=== PATIENT | female | born 1995 | race Caucasian/White ===

== ENCOUNTER 2020-07-19 11:52 | Emergency (ER) | payer OTHER, SELFPAY ==
[2020-07-19 12:03] VITALS: BP 113/80; PULSE 106; RESP 20; TEMP 36.1; O2SAT 96
--- NOTE | 2020-07-19 12:15 | W.ED.GENAD ---
Discharge Plan Disposition Patient Disposition: HOME Condition: Stable Discharge Details Clinical Impression: Bright red rectal bleeding Primary Care Provider: Unknown,Unknown ED Provider: Genesis Rod Home Meds and New Rx's Prescriptions: New hydrocortisone acetate 25 mg suppository 25 mg MS QHS 5 Days Qty: 12 RF: 0 hydrocortisone 1 % cream with perineal applicator 1 applic MS DAILY 5 Days Qty: 28.4 RF: 0 No Action fluoxetine [Prozac] 40 mg Capsule PO DAILY RF: 0 propranolol 10 mg Tablet PO TID PRN (Reason: Anxiety) RF: 0 bupropion HCl [Wellbutrin XL] 150 mg Tablet Extended Release 24 Hr PO QAM RF: 0 dexmethylphenidate [Focalin XR] 20 mg Capsule,Er Biphasic 50-50 PO DAILY RF: 0 levomefolate calcium [Deplin] 7.5 mg Tablet PO DAILY RF: 0 Discharge Instructions Instructions: Hemorrhoids (ED), Rectal Bleeding (ED) Additional Instructions: Follow up with primary care provider in 3-5 days. Return to ED sooner if any worsening or concerns. Increase oral fluids. Follow-up with general surgery in 1 to 2 weeks for a possible colonoscopy for further evaluation as needed for continued rectal bleeding. Please return to the ED for any worsening bleeding, dizziness lightheadedness, abdominal pain or nausea vomiting. Use which deloris Tucks pads, sits baths lukewarm baths water daily for 20 to 30 minutes, avoid constipation. Use prescriptions as directed no longer than 7 days. You are placed on a care management list to follow-up with primary care provider establish with primary care and follow-up with general surgery. Referrals: Loree Victoria MD [ [facility]] - Discharge Data Discharge Date/Time-TO BE ENTERED AT DEPARTURE: 07/19/20 13:27 Medical Decision Making 23-year-old female presents to the ER chief complaint of rectal bleeding which she reports has been ongoing for the last year. She states that over the last few days to a week it has worsened. She does describe bright red rectal bleeding with clots every time she goes to the bathroom. She denies any abdominal pain or nausea vomiting. At this time will order CBC, CMP, magnesium, PT, type and screen, 1 L normal saline. Differential diagnosis includes but not limited to hemorrhoids, perirectal abscess, ulcerative colitis, CBC shows stable hemoglobin hematocrit 11.9 and 38.4 CMP is largely within normal limits. 1310: Rectal exam performed patient, she did have some tenderness with exam, there was 2 small flesh colored hemorrhoids noted at approximately 6:00 no internal hemorrhoids palpated. Stool Hemoccult positive. Discussed options of care with patient regarding CT abdomen pelvis versus follow-up with general surgery for possible colonoscopy via outpatient. Due to patient absence of abdominal pain nausea vomiting this time I do feel outpatient follow-up is reasonable at this time. Will prescribe patient hydrocortisone suppositories and topical cream and placed on care management list for establishment of PCP and outpatient follow-up for general surgery. Discussed home care and follow-up with patient who verbalizes understanding. Will place patient on a care management list for establishment of PCP. HPI General Mode of arrival: ambulatory. Date/Time Provider Initiated Documentation: 07/19/20 12:03. Limitations to Documentation: no limitations. Information obtained by: patient. HPI Narrative: 23-year-old female presents to the ER chief complaint of rectal bleeding which she reports has been ongoing for the last year. She states that over the last few days to a week it has worsened. She does describe bright red rectal bleeding with clots every time she goes to the bathroom. She denies any constipation or hard stools denies any diarrhea. She denies any abdominal pain nausea vomiting. She denies any fever or chills. She does report painful bleeding. She denies taking any significant amount of Tylenol or ibuprofen denies alcohol use. She does endorse marijuana. Last normal menstrual period was approximately 4 weeks ago, she does have the ParaGard IUD for control. Related Data Home Medications Medication Instructions Recorded Confirmed bupropion HCl [Wellbutrin XL] mg PO QAM 07/19/20 dexmethylphenidate [Focalin XR] mg PO DAILY 07/19/20 fluoxetine [Prozac] mg PO DAILY 07/19/20 hydrocortisone 1 applic MS DAILY 5 Days #28.4 g 07/19/20 hydrocortisone acetate 25 mg MS QHS 5 Days #12 ea 07/19/20 levomefolate calcium [Deplin] mg PO DAILY 07/19/20 propranolol mg PO TID PRN 07/19/20 Previous Rx's Medication Instructions Recorded hydrocortisone 1 applic MS DAILY 5 Days #28.4 g 07/19/20 hydrocortisone acetate 25 mg MS QHS 5 Days #12 ea 07/19/20 Allergies Allergy/AdvReac Type Severity Reaction Status Date / Time hazelnut Allergy Itching Unverified 07/19/20 12:10 soy Allergy Itching Unverified 07/19/20 12:10 General Stated Complaint: GI Bleed RUBENS: 3 Review of Systems Narrative: Constitutional: Negative for weight loss, alert and oriented, well groomed, obese body habitus, appears comfortable. Reports increased fatigue recently. HEENT: Denies trauma, headaches, blurry vision, nasal discharge, sore throat, trouble swallowing. Chest: Denies chest pain, palpitations, irregular rhythm, hypertension. Respiratory: Denies Shortness of breath, cough, hemoptysis. GI: Denies abdominal pain, nausea, vomiting, diarrhea, constipation. Positive rectal bleeding pain worsening in the last week ongoing for approximately 1 year. : Denies dysuria, hematuria, flank pain. Neuro: Denies dizziness, blurry vision, weakness, syncope, headache or facial numbness. Hematologic: Denies easy bruising, intolerance to heat or cold, hair loss. [facility] Social History Smoking/Tobacco Use Status: Never Smoking risk assessment performed?: Yes Alcohol Intake: never Drug use: Daily Substance use type: marijuana Do you feel safe at home: Yes Do you feel safe in your relationship?: Yes Exam Narrative Exam Narrative: Constitutional: Alert and oriented x3. Appears stated age. Normal body habitus. Head: Normocephalic, no trauma. Eyes: Pupils PERRLA, Red reflex noted, EOM's intact. Eyelids symmetrical without lesions, discharge, or swelling. ENT: Bilateral TM's WNL, External ear normal to inspection, no mastoid TTP, swelling, or erythema, Nasal turbinates WNL, no nasal discharge. Normal dentition, Posterior pharynx WNL, no exudate. Chest: RRR, Normal S1, S2, distal pulses intact. Resp: Lungs clear to auscultation bilaterally, no wheezes, rales, or rhonchi. Abdomen: Soft, nondistended, nontender to palpation in all 4 quadrants. Rectal: Musculoskeletal: Normal gait, 5/5 strength to all four extremities. Skin: No suspicious rashes or lesions. Capillary refill less than 2 sec. Neurologic: Cranial nerves II-XII intact. Alert and oriented x 3. DTR's intact. Hematologic/Lymphatic: No ecchymosis, no lymphadenopathy. Course Vital Signs Vital signs: Vital Signs Temperature 36.1 C L 07/19/20 12:03 Pulse 106 H 07/19/20 12:03 Respiratory Rate 20 07/19/20 12:03 Blood Pressure 113/80 07/19/20 12:03 Pulse Oximetry 96 07/19/20 12:03 Temperature 36.1 C L 07/19/20 12:03 Temperature Source Skin 07/19/20 12:03 Pulse 106 H 07/19/20 12:03 Respiratory Rate 20 07/19/20 12:03 Respiratory Effort Non-Labored 07/19/20 12:10 Blood Pressure 113/80 07/19/20 12:03 Blood Pressure Position Sitting 07/19/20 12:03 Pulse Oximetry 96 07/19/20 12:03 Oxygen Delivery Method Room Air 07/19/20 12:03 Oxygen Flow Rate 0 07/19/20 12:03 Pain Level 5 07/19/20 12:03 Procedures Stool Hemoccult Procedural Steps Taken: stool placed in appropriate test area, developer placed on stool and control areas and controls appropriately positive and negative Hemoccult result: positive
[2020-07-19] MEDS: Normal Saline 1,000 ML 1000 ML IV (12:39)
[2020-07-19 12:44] LABS: Abs Immature Grans 0.07 10^3/uL (0.0-0.06); Absolute Basophil Count 0.05 10^3/uL (0.0-0.2); Absolute Eosinophil Count 0.66 10^3/uL (0.0-0.7); Absolute Monocyte Count 0.76 10^3/uL (0.1-0.8); Absolute Neutrophil Count 6.38 10^3/uL (1.2-6.7); Basophils % 0.4; Eosinophils % 5.7; HCT 38.4 % (36.0-46.0); HGB 11.9 g/dL (11.2-15.7); Immature Grans % 0.6; Lymphocytes % 31.3; MCH 24.9 pg (27.0-33.0); MCV 80.3 fL (80-95); MPV 10.3 fL (8.0-11.0); Monocytes % 6.6; Neutrophils % 55.4; Nucleated RBC 0 %; Platelet Count 360 10^3/uL (130-400); RBC 4.78 10^6/uL (3.93-5.22); RDW 14.9 % (11.7-14.6); RDW-SD 42.9 fL; WBC 11.52 10^3/uL (4.4-10.8)
[2020-07-19 12:46] LABS: Absolute Lymphocyte Count 3.61 10^3/uL (1.2-3.4)
[2020-07-19 12:50] LABS: ALT 49 U/L (14-59); AST 37 U/L (15-37); Albumin 3.8 g/dL (3.4-5.0); Alkaline Phosphatase 82 U/L (46-116); Anion Gap 13.1 mmol/L (3-11); BUN 8 mg/dL (7-18); Bilirubin, Total 0.3 mg/dL (0.2-1.0); CO2 24.9 mmol/L (21.0-32.0); CREATININE 0.9 mg/dL (0.55-1.02); Calcium 9.2 mg/dL (8.5-10.1); Chloride 102 mmol/L (98-107); Glucose 94 mg/dL (74-106); Potassium 4.3 mmol/L (3.5-5.1); Sodium 140 mmol/L (136-145); Total Protein 8.2 g/dL (6.4-8.2)
[2020-07-19 13:13] LABS: Prothrombin Time 9.9 sec (9.3-11.0)
--- NOTE | 2020-07-19 19:27 | NUR.NOTE ---
Referral [facility] for [facility] bleeding follow up in 1-2 weeks and copy to Care Management to establish pcp in 1-2 weeks for same issue.Nursing Note:
== END 2020-07-19 13:27 | disposition home or self-care (01) ==
PROVIDERS: Emergency Provider Registered Nurse Emergency
DX: K62.5 Hemorrhage of anus and rectum (principal)
CPT/HCPCS: 80053; 81025; 99283; 83735; 85025; 85610

== ENCOUNTER 2020-08-05 16:11 | Outpatient (CLI) | payer OTHER, SELFPAY ==
--- NOTE | 2020-08-05 16:00 | RT.EKG_ITS ---
APPROVED REPORT Exam: Resting ECG Reason for Exam: High BP/HR Patient Location: O HR:112 bpm ECG Measurements Heart Rate 112 AXIS MA 118 P 50 QRSd 79 QRS 14 QT 329 T 12 QTc 449 Conclusion Sinus tachycardia...rate> 99
== END 2020-08-05 16:12 | disposition home or self-care (01) ==
LOC: DI.CM 16:13
PROVIDERS: Visit Provider Nurse Practitioner Family
DX: R07.89 Other chest pain (principal)
CPT/HCPCS: 93010

== ENCOUNTER 2020-08-05 17:30 | Observation (INO) | payer OTHER, SELFPAY ==
[2020-08-05] VITALS (13 sets, daily range): BP systolic 104–156; BP diastolic 70–87; PULSE 88–131; RESP 16–22; TEMP 36.1–37.2; O2SAT 99–100
--- NOTE | 2020-08-05 17:34 | ED.GENADUL_ITS ---
Discharge Plan Discharge Details Chief Complaint: GI Bleed Primary Care Provider: Unknown,Unknown ED Provider: Carlos Manuel Elliott Home Meds and New Rx's Prescriptions: No Action eszopiclone [Lunesta] 1 mg tablet 1 mg PO QHS RF: 0 bisacodyl [Dulcolax (bisacodyl)] 5 mg tablet,delayed release (DR/EC) 5 mg PO ONCE Qty: 4 RF: 0 polyethylene glycol 3350 17 gram powder in packet 255 g PO DAILY Qty: 15 RF: 0 propranolol 10 mg Tablet 10 mg PO TID PRN (Reason: Anxiety) RF: 0 bupropion HCl [Wellbutrin XL] 150 mg tablet extended release 24 hr 300 mg PO QAM RF: 0 dexmethylphenidate [Focalin XR] 20 mg capsule,ER biphasic 50-50 10 mg PO DAILY RF: 0 fluoxetine [Prozac] 40 mg capsule 60 mg PO DAILY RF: 0 levomefolate calcium 7.5 mg tablet 15 mg PO DAILY RF: 0 Medical Decision Making 24-year-old female referred by [facility]. She was initially seen in the emergency department on July 19 with lower GI bleed, followed up in clinic with Dr. Victoria on July 23, with plan for outpatient colonoscopy on September 02. Today presented to urgent care with palpitations and shortness of breath, was found to have a hemoglobin of 6 and referred to the ER. Patient arrives tachycardic with a pulse of 131, blood pressure 156/87. She does take propranolol as needed for anxiety which she did have today. Temp is 36.1 she is oxygenating normally. She has evidence of GI bleeding with guaiac positive mucus. IV was placed, repeat labs obtained, patient consented for transfusion of packed red blood cells. Hemoglobin today is 6.5. Labs otherwise reassuring. Case discussed with Dr. Victoria. She recommends medical admission, transfusion, consideration of prep for colonoscopy tomorrow. Lab Data Lab results reviewed: Yes I reviewed the patient's lab results. Labs: Laboratory Results - last 24 hr 08/05/20 08/05/20 08/05/20 17:45 17:45 17:45 WBC 12.78 H RBC 2.71 L Hgb 6.5 L* Hct 21.5 L MCV 79.3 L MCH 24.0 L MCHC 30.2 L RDW 15.4 H Plt Count 508 H MPV 10.0 Immature Gran % 0.8 Neutrophils % 58.6 Lymphocytes % 30.2 Monocytes % 6.6 Eosinophils % 3.2 Basophils % 0.6 Nucleated RBC % 0 Absolute Neutrophils 7.49 H Absolute Lymphocytes 3.86 H Absolute Monocytes 0.84 H Absolute Eosinophils 0.41 Absolute Basophils 0.08 RBC Morphology See below Polychromasia Present Hypochromasia 1+ Microcytosis 1+ Sodium 141 Potassium 4.0 Chloride 103 Carbon Dioxide 24.2 Anion Gap 13.8 H BUN 10 Creatinine 0.8 Estimated GFR/1.73 m2 >= 60.00 Glucose 113 H Calcium 9.2 Magnesium 2.1 Total Bilirubin 0.3 AST 31 ALT 38 Alkaline Phosphatase 76 Total Protein 7.8 Albumin 3.9 Patient ABO/Rh O Positive Antibody Screen Negative Crossmatch See Detail HPI General Mode of arrival: ambulatory . Date/Time Provider Initiated Documentation: 08/05/20 17:30 . Limitations to Documentation: no limitations . Information obtained by: patient . History of Present Illness 24 year old F presents to the emergency department with the chief complaint of Short of breath, palpitations, history of GI bleed and low hemoglobin today, described as moderate, and is localized to the abdomen. Patient started experiencing this day(s) and it has been intermittent. No relieving factors improve symptom(s), No exacerbating factors reported . Patient notes shortness of breath; denies syncope. Patient did receive the following treatments prior to arrival, none Related Data Home Medications Medication Instructions Recorded Confirmed propranolol 10 mg PO TID PRN 07/19/20 08/05/20 bisacodyl 5 mg tablet,delayed 5 mg PO ONCE #4 tab 07/23/20 08/05/20 release bupropion HCl 150 mg 24 hr tablet, 300 mg PO QAM tab 07/23/20 08/05/20 extended release dexmethylphenidate 20 mg 10 mg PO DAILY cap 07/23/20 08/05/20 capsule,extended release [id number] eszopiclone 1 mg tablet 1 mg PO QHS 07/23/20 08/05/20 fluoxetine 40 mg capsule 60 mg PO DAILY cap 07/23/20 08/05/20 levomefolate calcium 7.5 mg tablet 15 mg PO DAILY tab 07/23/20 08/05/20 polyethylene glycol 3350 17 gram 255 g PO DAILY #15 ea 07/23/20 08/05/20 oral powder packet Previous Rx's Medication Instructions Recorded bisacodyl 5 mg tablet,delayed 5 mg PO ONCE #4 tab 07/23/20 release polyethylene glycol 3350 17 gram 255 g PO DAILY #15 ea 07/23/20 oral powder packet Allergies Allergy/AdvReac Type Severity Reaction Status Date / Time hazelnut Allergy Itching Verified 08/05/20 17:37 soy Allergy Itching Verified 08/05/20 17:37 General RUBENS: 3 Review of Systems Narrative: Colonoscopy scheduled September 02. PFS Medical History ADHD Anxiety Depression Hx of hemorrhoids Insomnia Social History Smoking/Tobacco Use Status: Never Smoking risk assessment performed?: Yes Alcohol Intake: never Drug use: Daily Substance use type: marijuana Current gender identity: female Do you feel safe at home: Yes Do you feel safe in your relationship?: Yes Exam Narrative Exam Narrative: GEN: awake, alert, oriented 3. Pleasant, well groomed, interactive. HEAD: Normocephalic, atraumatic ENT: Mucous membranes moist, oropharynx unremarkable, External ear exam unremarkable EYES: PERRL, EOMI NECK: Full ROM, no FELIX, no menigismus CHEST/RESP: Nontender, clear to auscultation bilateral, no wheeze/rhonchi/rales CARDIOVASCULAR: Regular and tachycardic, no murmur, rub priscilla. 2+ Rad pulse bilateral ABDOMEN: Soft, nontender, no mass. Normal rectal tone, no mass, guaiac positive pink mucus. +Bowel sounds EXT: Full ROM, no edema, no rash Neuro: Grossly normal neurologic exam, conversant, interactive. Psych: Speech fluent, thoughts congruent, affect normal
--- NOTE | 2020-08-05 17:45 | RT.EKG_ITS ---
APPROVED REPORT Exam: Resting ECG Reason for Exam: tachycardia Patient Location: E HR:110 bpm ECG Measurements Heart Rate 110 AXIS FL 127 P 30 QRSd 86 QRS 5 QT 333 T 1 QTc 450 Conclusion Sinus tachycardia...rate> 99
[2020-08-05 18:00] LABS: Absolute Basophil Count 0.08 10^3/uL (0.0-0.2); Absolute Eosinophil Count 0.41 10^3/uL (0.0-0.7); Absolute Lymphocyte Count 3.86 10^3/uL (1.2-3.4); Absolute Monocyte Count 0.84 10^3/uL (0.1-0.8); Absolute Neutrophil Count 7.49 10^3/uL (1.2-6.7); Basophils % 0.6; Eosinophils % 3.2; Immature Grans % 0.8; Lymphocytes % 30.2; MCHC 30.2 % (32.0-36.0); MCV 79.3 fL (80-95); Monocytes % 6.6; Neutrophils % 58.6; Nucleated RBC 0 %; Platelet Count 508 10^3/uL (130-400); RBC 2.71 10^6/uL (3.93-5.22); RDW 15.4 % (11.7-14.6); RDW-SD 44.1 fL; WBC 12.78 10^3/uL (4.4-10.8)
[2020-08-05 18:17] LABS: HCT 21.5 % (36.0-46.0); HGB 6.5 g/dL (11.2-15.7)
[2020-08-05 18:18] LABS: Diff Comment RBC Morph Reviewed; Hypochromasia 1+; Microcytosis 1+; Polychromasia Present
[2020-08-05 18:32] LABS: ALT 38 U/L (14-59); AST 31 U/L (15-37); Albumin 3.9 g/dL (3.4-5.0); Alkaline Phosphatase 76 U/L (46-116); Anion Gap 13.8 mmol/L (3-11); BUN 10 mg/dL (7-18); Bilirubin, Total 0.3 mg/dL (0.2-1.0); CO2 24.2 mmol/L (21.0-32.0); CREATININE 0.8 mg/dL (0.55-1.02); Calcium 9.2 mg/dL (8.5-10.1); Chloride 103 mmol/L (98-107); Glucose 113 mg/dL (74-106); Magnesium 2.1 mg/dL (1.8-2.4); Sodium 141 mmol/L (136-145); Total Protein 7.8 g/dL (6.4-8.2)
--- NOTE | 2020-08-05 18:59 | W.PM.HP.N ---
Date of service: 08/05/20 Time of Service: 18:59 Assessment and Plan Assessment and plan (1) Lower GI bleed: Status: Acute Assessment and plan: LGI bleed, source unknown. Will proceed with transfusion -- probably 3-4 units total -- and await colonoscopy. Given otherwise lack of abd sxx and otherwise benign abd exam I do not see that imaging would be required at present. History of Present Illness History of Present Illness Chief Complaint: SOB, rectal bleeding Narrative: 24 female reports one year of occasional painless rectal bleeding accompanying BM. Bleeding has escalated over past month or so. Seen in ER 07/19, Hct 38 at the time. Referred for colonoscopy which had been schedule for August. Returns to ER with now SOB and palpitations. Again reiterates there has been no pain, no nausea. In ER findings of note for sinus tachycardia, pallor and HCT of 21. Surgery was called and requested admission, transfusion and they will see patient in AM to arrange for colonoscopy. ER has ordered 2 units pRBC. Note that patient is on no blood thinners, platelets 508K, and coags are pending. Review of Systems All systems reviewed & are unremarkable except as noted in HPI and below PFSH Medical History ADHD Anxiety Depression Hx of hemorrhoids Insomnia Social History Smoking/Tobacco Use Status: Never Smoking risk assessment performed?: Yes Alcohol Intake: never Drug use: Daily Substance use type: marijuana Current gender identity: female Do you feel safe at home: Yes Do you feel safe in your relationship?: Yes Meds Allergies and Home Medications Allergies Allergy/AdvReac Type Severity Reaction Status Date / Time hazelnut Allergy Itching Verified 08/05/20 17:37 soy Allergy Itching Verified 08/05/20 17:37 Home Medications Medication Instructions Recorded Confirmed Type propranolol 10 mg PO TID PRN 07/19/20 08/05/20 History bisacodyl 5 mg tablet,delayed 5 mg PO ONCE #4 tab 07/23/20 08/05/20 Rx release bupropion HCl 150 mg 24 hr tablet, 300 mg PO QAM tab 07/23/20 08/05/20 History extended release dexmethylphenidate 20 mg 10 mg PO DAILY cap 07/23/20 08/05/20 History capsule,extended release [id number] eszopiclone 1 mg tablet 1 mg PO QHS 07/23/20 08/05/20 History fluoxetine 40 mg capsule 60 mg PO DAILY cap 07/23/20 08/05/20 History levomefolate calcium 7.5 mg tablet 15 mg PO DAILY tab 07/23/20 08/05/20 History polyethylene glycol 3350 17 gram 255 g PO DAILY #15 ea 07/23/20 08/05/20 Rx oral powder packet Exam Narrative Exam Narrative: 119/70, 109, 37.1, 16, 99% RA. HEENT atraumatic; neck supple; lungs clear; heart tachy/regular; abdomen soft and NT; rectal deferred; extremities w/o edema; neuro Ox3, moves all 4s Results Labs Result diagrams: 08/05/20 17:45 08/05/20 17:45 Labs: Laboratory Results - last 24 hr 08/05/20 08/05/20 08/05/20 17:45 17:45 17:45 WBC 12.78 H RBC 2.71 L Hgb 6.5 L* Hct 21.5 L MCV 79.3 L MCH 24.0 L MCHC 30.2 L RDW 15.4 H Plt Count 508 H MPV 10.0 Immature Gran % 0.8 Neutrophils % 58.6 Lymphocytes % 30.2 Monocytes % 6.6 Eosinophils % 3.2 Basophils % 0.6 Nucleated RBC % 0 Absolute Neutrophils 7.49 H Absolute Lymphocytes 3.86 H Absolute Monocytes 0.84 H Absolute Eosinophils 0.41 Absolute Basophils 0.08 RBC Morphology See below Polychromasia Present Hypochromasia 1+ Microcytosis 1+ PT Cancelled INR Cancelled APTT Cancelled Sodium 141 Potassium 4.0 Chloride 103 Carbon Dioxide 24.2 Anion Gap 13.8 H BUN 10 Creatinine 0.8 Estimated GFR/1.73 m2 >= 60.00 Glucose 113 H Calcium 9.2 Magnesium 2.1 Total Bilirubin 0.3 AST 31 ALT 38 Alkaline Phosphatase 76 Total Protein 7.8 Albumin 3.9 Patient ABO/Rh Antibody Screen Crossmatch 08/05/20 17:45 WBC RBC Hgb Hct MCV MCH MCHC RDW Plt Count MPV Immature Gran % Neutrophils % Lymphocytes % Monocytes % Eosinophils % Basophils % Nucleated RBC % Absolute Neutrophils Absolute Lymphocytes Absolute Monocytes Absolute Eosinophils Absolute Basophils RBC Morphology Polychromasia Hypochromasia Microcytosis PT INR APTT Sodium Potassium Chloride Carbon Dioxide Anion Gap BUN Creatinine Estimated GFR/1.73 m2 Glucose Calcium Magnesium Total Bilirubin AST ALT Alkaline Phosphatase Total Protein Albumin Patient ABO/Rh O Positive Antibody Screen Negative Crossmatch See Detail Last Vital Signs Temp 37.1 C 08/05/20 18:57 Pulse 109 H 08/05/20 18:57 Resp 16 08/05/20 18:57 BP 119/70 08/05/20 18:57 Pulse Ox 99 08/05/20 18:57 COVID-19 Screening Have you, or household traveled for leisure in last 14 days?: No Had IN PERSON contact w/suspected or confirmed C-19 person: No
[2020-08-05 19:11] LABS: Prothrombin Time 9.9 sec (9.3-11.0)
[2020-08-05 19:49] LABS: Source Nasal/Nares
--- NOTE | 2020-08-05 20:12 | NUR.NOTE ---
Referral to Care Management to establish pcp after discharge from m/s.Nursing Note:
[2020-08-06] VITALS (13 sets, daily range): BP systolic 109–128; BP diastolic 66–84; PULSE 74–90; RESP 16–18; TEMP 36–36.7; O2SAT 99–100
[2020-08-06 01:38] LABS: COVID-19 PCR Negative (Negative)
[2020-08-06 05:48] LABS: HCT 26.4 % (36.0-46.0); HGB 8.1 g/dL (11.2-15.7)
[2020-08-06] MEDS: buPROPion-XL 150 MG TABCR 300 MG PO (07:42)
[2020-08-06] MEDS: FLUoxetine 20 MG CAP 60 MG PO (07:42)
--- NOTE | 2020-08-06 08:03 | W.SURGCON ---
Date of service: 08/06/20 Time of Service: 08:03 Assessment and Plan Assessment and plan (1) Lower GI bleed: Status: Acute Assessment and plan: Sinai is a pleasant 24 year old female seen in the office for rectal bleeding. She was going to undergo colonoscopy in 2 weeks. She came to the ER due to tachycardia and contyinued bleeding. Was noted to have a Hgb of <7. Patient admitted for blood transfusion. Discussed with the patient doing a EGD/Colonoscopy tomorrow to figure out where she is bleeding from. Risks, benefits and complications have been reviewed. Complications include but are not limited to bleeding, pain, perforation, missed small lesion/polyp, sore throat, aspiration and adverse reaction to the medications. Questions were entertained and answered to their satisfaction and they wished to proceed. No guarantees were given or implied. History of Present Illness Narrative: Sinai was seen in the ER for continued rectal bleeding. I had seen her in the office and she was going to undergo Colonoscopy in the next week or two. In the ED she was noted to have droped her HGB to <7. She was also pale and tachycardic. Patient was admitted by Hospitalist for transfusion. This morning Sinai is feeling better after a couple of units of blood. Review of Systems Constitutional Constitutional: Reports fatigue, Denies fever(s), Denies headache(s) and Denies weight loss Eyes Eyes: Denies change in vision ENT Ears, Nose, Mouth, and Throat: Denies change in voice, Denies headache(s) and Denies hoarseness Cardiovascular Cardiovascular: Denies chest pain, Denies chest pain at rest, Denies irregular heart rhythm, Denies palpitations and Denies dyspnea Respiratory Respiratory: Denies cough and Denies dyspnea Gastrointestinal Gastrointestinal: Reports as per HPI Genitourinary Genitourinary: Reports system reviewed and no additional complaints, except as documented Musculoskeletal Musculoskeletal: Reports system reviewed and no additional complaints, except as documented Integumentary/Breasts Skin/Breast: Reports system reviewed and no additional complaints, except as documented Neurologic Neurologic: Reports system reviewed and no additional complaints, except as documented and Denies headache(s) Psychiatric Psychiatric: Reports system reviewed and no additional complaints, except as documented Endocrine Endocrine: Reports fatigue and Denies palpitations [facility] Medical History ADHD Anxiety Depression Hx of hemorrhoids Insomnia Social History Smoking/Tobacco Use Status: Never Smoking risk assessment performed?: Yes Alcohol Intake: never Drug use: Daily Substance use type: marijuana Current gender identity: female Do you feel safe at home: Yes Do you feel safe in your relationship?: Yes Exam Const General: cooperative, comfortable and no acute distress Orientation: alert and oriented x3 HENMT Head: normocephalic and atraumatic Resp Effort & Inspection: normal respiratory effort Auscultation: clear to auscultation bilaterally Cardio Rate: regular rate Rhythm: regular rhythm Heart Sounds: no gallops, no murmurs and no rubs GI Inspection: normal to inspection Palpation: soft, no hepatosplenomegaly and nontender Auscultation: normal bowel sounds Results Last Vital Signs Temp 97.9 F 08/06/20 07:49 Pulse 88 08/06/20 07:49 Resp 16 08/06/20 07:49 BP 114/76 08/06/20 07:49 Pulse Ox 100 08/06/20 07:49 Labs Result diagrams: 08/06/20 05:41 08/05/20 17:45 Labs: Laboratory Results - last 24 hr 08/05/20 08/05/20 08/05/20 17:45 17:45 17:45 WBC 12.78 H RBC 2.71 L Hgb 6.5 L* Hct 21.5 L MCV 79.3 L MCH 24.0 L MCHC 30.2 L RDW 15.4 H Plt Count 508 H MPV 10.0 Immature Gran % 0.8 Neutrophils % 58.6 Lymphocytes % 30.2 Monocytes % 6.6 Eosinophils % 3.2 Basophils % 0.6 Nucleated RBC % 0 Absolute Neutrophils 7.49 H Absolute Lymphocytes 3.86 H Absolute Monocytes 0.84 H Absolute Eosinophils 0.41 Absolute Basophils 0.08 RBC Morphology See below Polychromasia Present Hypochromasia 1+ Microcytosis 1+ PT Cancelled INR Cancelled APTT Cancelled Sodium 141 Potassium 4.0 Chloride 103 Carbon Dioxide 24.2 Anion Gap 13.8 H BUN 10 Creatinine 0.8 Estimated GFR/1.73 m2 >= 60.00 Glucose 113 H Calcium 9.2 Magnesium 2.1 Total Bilirubin 0.3 AST 31 ALT 38 Alkaline Phosphatase 76 Total Protein 7.8 Albumin 3.9 COVID-19 Source SARS-CoV-2 (PCR) Patient ABO/Rh Antibody Screen Crossmatch 08/05/20 08/05/20 08/05/20 17:45 18:50 19:35 WBC RBC Hgb Hct MCV MCH MCHC RDW Plt Count MPV Immature Gran % Neutrophils % Lymphocytes % Monocytes % Eosinophils % Basophils % Nucleated RBC % Absolute Neutrophils Absolute Lymphocytes Absolute Monocytes Absolute Eosinophils Absolute Basophils RBC Morphology Polychromasia Hypochromasia Microcytosis PT 9.9 INR 1.0 APTT 21.0 Sodium Potassium Chloride Carbon Dioxide Anion Gap BUN Creatinine Estimated GFR/1.73 m2 Glucose Calcium Magnesium Total Bilirubin AST ALT Alkaline Phosphatase Total Protein Albumin COVID-19 Source Nasal/nares SARS-CoV-2 (PCR) Negative Patient ABO/Rh O Positive Antibody Screen Negative Crossmatch See Detail 08/06/20 08/06/20 05:41 08:30 WBC RBC Hgb 8.1 L Cancelled Hct 26.4 L D Cancelled MCV MCH MCHC RDW Plt Count MPV Immature Gran % Neutrophils % Lymphocytes % Monocytes % Eosinophils % Basophils % Nucleated RBC % Absolute Neutrophils Absolute Lymphocytes Absolute Monocytes Absolute Eosinophils Absolute Basophils RBC Morphology Polychromasia Hypochromasia Microcytosis PT INR APTT Sodium Potassium Chloride Carbon Dioxide Anion Gap BUN Creatinine Estimated GFR/1.73 m2 Glucose Calcium Magnesium Total Bilirubin AST ALT Alkaline Phosphatase Total Protein Albumin COVID-19 Source SARS-CoV-2 (PCR) Patient ABO/Rh Antibody Screen Crossmatch
--- NOTE | 2020-08-06 10:26 | INITIAL_ITS ---
- If Service Date Differs Date of service: 08/06/20 Time of Service: 10:27 Care Management Initial Assess REASON FOR HOSPITALIZATION:: Lower GI Bleed PAST MEDICAL HISTORY/PAST SURGICAL HISTORY:: Medical History. ADHD. Anxiety. Depression. Hx of hemorrhoids. Insomnia PREVIOUS FUNCTIONAL STATUS/SOCIAL/FAMILY SUPPORTS:: Sinai lives in [place] with her significant other, Terrance. 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 She is independent at baseline. CURRENT FUNCTIONAL STATUS:: Sinai was sitting up in her bed talking with her s/o Terrance, when CM visited with her. She reported that per MD, she would remain at [facility] overnight for her EGD and Colonoscopy tomorrow. She stated that she is independent and will not require any services. CM will continue to follow. ADVANCE DIRECTIVES:: None on file. CM will offer forms. Has patient been provided with info about the portal/API?: Yes Did the patient sign up for the portal?: No CODE STATUS:: Full Code INSURANCE COVERAGE / FINANCIAL ISSUES:: [employer] CURRENT HOME/COMMUNITY SERVICES/EQUIPMENT:: No current equipment or services. PRIMARY CARE PHYSICIAN:: unknown. CM will request follow up by bus monitor MD, if no PCP. POTENTIAL DISCHARGE NEEDS:: Follow up appointments, possible PCP. PATIENT/FAMILY EDUCATION NEEDS:: Review discharge instructions regarding activity levels and medications, discussion of self care needs. ANTICIPATED BARRIERS TO DISCHARGE:: None identified. TRANSPORTATION:: Via private vehicle by S/O. PLAN:: Sinai will remain at [facility] overnight to be monitored prior to her EGD and Colonoscopy tomorrow. Once she is medically cleared, anticipate she will return home with no services. She will follow up with surgical services and her discharge plan of care. CM will continue to follow.
[2020-08-06 12:38] LABS: HCG Qual (Urine) Negative
[2020-08-06] MEDS: Normal Saline Flush 10 ML SYR IVP (17:31)
[2020-08-06] MEDS: Metoclopramide 10 MG/2 ML VIAL IVP (17:31)
[2020-08-07 00:19] VITALS: BP 111/72; PULSE 87; RESP 18; TEMP 36.6; O2SAT 100
--- NOTE | 2020-08-07 06:57 | ENDO_ITS ---
Date of service: 08/07/20 Time of Service: 12: Endoscopy Report DATE OF PROCEDURE: 08/07/20 PRE-OP DIAGNOSIS: Rectal bleeding POST-OP DIAGNOSIS: other (Internal hemorrhoids) PROCEDURE: 1. EGD with biopsies 2. Colonoscopy with internal hemorrhoid banding SURGEON: Loree Victorai ANESTHESIA TYPE: General:No Airway (ASA 3/ Kyung Mayberry, FREDRICK) ESTIMATED BLOOD LOSS: 3 PATHOLOGY: other (Gastric bx, GE junction bx) COMPLICATIONS: None DISPOSITION: same day INDICATIONS: Assessment and plan: Sinai is a pleasant 24 year old female seen in the office for rectal bleeding. She was going to undergo colonoscopy in 2 weeks. She came to the ER due to tachycardia and contyinued bleeding. Was noted to have a Hgb of <7. Patient admitted for blood transfusion. Discussed with the patient doing a EGD/Colonoscopy tomorrow to figure out where she is bleeding from. Risks, benefits and complications have been reviewed. Complications include but are not limited to bleeding, pain, perforation, missed small lesion/polyp, sore throat, aspiration and adverse reaction to the medications. Questions were entertained and answered to their satisfaction and they wished to proceed. No guarantees were given or implied. PREP: BenoitYTELY PROCEDURE START TIME: 12:26 PROCEDURE END TIME: 12:55 COLONOSCOPY RETRACTION TIME: 12 FINDINGS: Mild gastritis Grade 3 internal hemorrhoids External hemorrhoids PROCEDURE DESCRIPTION: After informed consent was obtained the patient was take to the procedure room and placed in a supine position. Monitors were applied and a time out was done. The patients name, date of , procedure type, allergies to medications and metal in their body was reviewed. A bite block was placed and the patient was sedated. Once sedated and comfortable the gastroscope was advanced through the oropharynx which was grossly normal into the esophagus. The proximal and mid- esophagus were normal. In the distal esophagus there was no inflammation noted. The scope was advanced into the stomach and through the pylorus into the 3rd portion of the duodenum. The duodenum was noted to be normal. The scope was retracted back into the stomach. There was mild inflammation noted in the antrum. Biopsies were done to rule out H. pylori. There were no ulcers. The scope was retro-flexed. The cardia and fundus were noted to be normal. There was no hiatal hernia noted. The scope was retracted back into the esophagus and biopsies were done of the GE junction to rule out Montiel's. The Z line was regular. The GE junction was at 36 cm. While the patient was still sedated they were placed in a left decubitous position. A rectal exam was done. External exam revealed Grade 2 hemorrhoids. Internal exam revealed a normal sphincter tone and no palpable masses. The scope was then introduced and retro-flexed. Grade 3 internal hemorrhoids were noted at the 3 and 6 o'clock position. No masses or polyps were identified on retroflexion. The scope was then advanced to the ileocecal vlave with difficulty. I could not get the scope to advance into the cecum. The prep was adequate. The scope was then slowly retracted over 12 minutes back into the rectum. There were no polyps. There was no diverticulosis noted. The scope was removed. An anoscope was then placed and 2 large internal hemorrhoids were banded. The patient was woken up and taken back to Same day surgery in stable condition. The patient tolerated the procedure well and there were no immediate complications. Follow up: 2 weeks
[2020-08-07 08:10] VITALS: BP 123/80; PULSE 75; RESP 18; TEMP 36.5; O2SAT 99
[2020-08-07 08:42] LABS: HGB 11.1 g/dL (11.2-15.7)
[2020-08-07] MEDS: Lactated Ringers 1,000 ML 80 ML IV (09:44)
[2020-08-07 11:44] VITALS: BP 129/83; PULSE 89; RESP 18; TEMP 36.2; O2SAT 99
--- NOTE | 2020-08-07 12:10 | ANES.PREOP_ITS ---
General Info Date of Service Date Performed: 08/07/20 Height: 5 ft 2.99 in Weight: 115.893 kg Body Mass Index (BMI): 45.2 Surgical Procedure: Operation Date: 08/07/20 12:05 Proposed Procedures Side Surgeon p Colonoscopy/Gastroscopy Loree Victoria MD Meds Allergies and Home Medications Allergies Allergy/AdvReac Type Severity Reaction Status Date / Time hazelnut Allergy Itching Verified 08/05/20 17:37 soy Allergy Itching Verified 08/05/20 17:37 Home Medication Medication Instructions Recorded propranolol 10 mg PO TID PRN 07/19/20 bisacodyl 5 mg tablet,delayed 5 mg PO ONCE #4 tab 07/23/20 release bupropion HCl 150 mg 24 hr tablet, 300 mg PO QAM tab 07/23/20 extended release dexmethylphenidate 20 mg 10 mg PO DAILY cap 07/23/20 capsule,extended release [id number] eszopiclone 1 mg tablet 1 mg PO QHS 07/23/20 fluoxetine 40 mg capsule 60 mg PO DAILY cap 07/23/20 levomefolate calcium 7.5 mg tablet 15 mg PO DAILY tab 07/23/20 polyethylene glycol 3350 17 gram 255 g PO DAILY #15 ea 07/23/20 oral powder packet Current Visit Medications: Current Medications Generic Name Dose Route Start Last Admin Trade Name Freq PRN Reason Stop Dose Admin Acetaminophen 650 mg 08/05/20 19:13 Acetaminophen 325 Mg Tab PO Q4H PRN PRN Bupropion HCl 300 mg 08/06/20 08:30 08/06/20 07:42 Bupropion-Xl 150 Mg Tabcr PO 300 mg QAM RAISSA Administration Dimethicone/Zinc Oxide 0 gm 08/05/20 19:11 Carolyn Protect Cream 142 Gm Tube TP PRN PRN Fluoxetine HCl 60 mg 08/06/20 08:30 08/06/20 07:42 Fluoxetine 20 Mg Cap PO 60 mg DAILY RAISSA Administration Ringer's Solution 1,000 mls @ 80 mls/hr 08/07/20 06:30 08/07/20 09:44 IV 80 mls/hr INFUSION RAISSA Administration IV Miscellaneous Supplies 1 each 08/05/20 17:45 Iv Access IV DIRECTED RAISSA Patient's Own 1 each 08/07/20 08:30 08/07/20 10:27 Medication ( PO Not Given Dexmethylphenidate DAILY RAISSA Er 10mg [Focalin Xr 10mg] Cap) Propranolol HCl 10 mg 08/05/20 19:12 Propranolol 10 Mg Tab PO TID PRN Anxiety Sodium Chloride 0 ml 08/05/20 17:32 08/06/20 17:31 Normal Saline Flush 10 Ml Syr IVP 10 ml PRN PRN Administration Zolpidem Tartrate 5 mg 08/05/20 19:13 Zolpidem 5 Mg Tab PO HS PRN MAY REPEAT X1 PRN PFSH Active Problems Active Problems: Problem Status Onset Code Lower GI bleed K92.2 Acute GI bleeding K92.2 Anemia D64.9 Bright red rectal bleeding K62.5 Medical History Medical History ADHD Anxiety Depression Hx of hemorrhoids Insomnia Tobacco Smoking/Tobacco Use Status: Never Alcohol Alcohol Intake: never Substance Use Substance use: Daily Substance use type: marijuana Vital Signs and Lab Results Vital Signs Most Recent Vital Signs in EMR: Most Recent Vital Signs Temp Pulse Resp BP Pulse Ox 36.2 C L 89 18 129/83 99 08/07/20 11:44 08/07/20 11:44 08/07/20 11:44 08/07/20 11:44 08/07/20 11:44 Lab Results Result Diagrams: 08/07/20 08:30 08/05/20 17:45 Blood Type / Crossmatch: Patient ABO/Rh O Positive 08/05/20 17:45 08/05/20 Antibody Screen Negative 08/05/20 17:45 08/05/20 Crossmatch See Detail 08/05/20 17:45 08/05/20 Complete Blood Count: White Blood Count 12.78 10^3/uL (4.4-10.8) H 08/05/20 17:45 08/05/20 Red Blood Count 2.71 10^6/uL (3.93-5.22) L 08/05/20 17:45 08/05/20 Hemoglobin 11.1 g/dL (11.2-15.7) L 08/07/20 08:30 08/07/20 Hematocrit 26.4 % (36.0-46.0) L 08/06/20 05:41 08/06/20 Platelet Count 508 10^3/uL (130-400) H 08/05/20 17:45 08/05/20 Complete Metabolic Panel: Sodium Level 141 mmol/L (136-145) 08/05/20 17:45 08/05/20 Potassium Level 4.0 mmol/L (3.5-5.1) 08/05/20 17:45 08/05/20 Chloride Level 103 mmol/L (98-107) 08/05/20 17:45 08/05/20 Carbon Dioxide Level 24.2 mmol/L (21.0-32.0) 08/05/20 17:45 08/05/20 Blood Urea Nitrogen 10 mg/dL (7-18) 08/05/20 17:45 08/05/20 Creatinine 0.8 mg/dL (0.55-1.02) 08/05/20 17:45 08/05/20 Magnesium Level 2.1 mg/dL (1.8-2.4) 08/05/20 17:45 08/05/20 Calcium Level 9.2 mg/dL (8.5-10.1) 08/05/20 17:45 08/05/20 Albumin 3.9 g/dL (3.4-5.0) 08/05/20 17:45 08/05/20 Glucose Level 113 mg/dL (74-106) H 08/05/20 17:45 08/05/20 Liver Function Panel: Alanine Aminotransferase (ALT/SGPT) 38 U/L (14-59) 08/05/20 17:45 08/05/20 Aspartate Amino Transf (AST/SGOT) 31 U/L (15-37) 08/05/20 17:45 08/05/20 Coagulation Panel: 2 INR International Normalized Ratio 1.0 (0.9-1.1) 08/05/20 18:50 08/05/20 Prothrombin Time 9.9 sec (9.3-11.0) 08/05/20 18:50 08/05/20 Activated Partial Thromboplast Time 21.0 sec (21.0-27.5) 08/05/20 18:50 08/05/20 Cardiac Panel: No Data to Display Arterial Blood Gas: No Data to Display Venous Blood Gas: No Data to Display Pancreas Panel: No Data to Display Thyroid Panel: No Data to Display Infectious Disease: Coronavirus (COVID-19)(PCR) Negative (Negative) 08/05/20 19:35 08/05/20 Coronavirus 2019 Source Nasal/nares 08/05/20 19:35 08/05/20 Blood Cultures: No Data to Display Toxicology Panel: No Data to Display Panel: Urine HCG, Qualitative Negative 08/06/20 12:10 08/06/20 Anesthesia Assessment and Plan Anesthesia History Personal History: No History of General Anesthesia Family History: No Family History of Anesthesia Complications Exercise Tolerance Exercise Tolerance: Metabolic Equivalents>4 Pertinent Negatives Pertinent Negatives: No Symptoms of GERD, No Major Cardiovascular Symptoms or C omplaints and No Major Pulmonary Symptoms or Complaints Cardiac & Pulmonary Exam Cardiac Exam: Normal S1/S2 Heart Sounds Pulmonary Exam: Clear Bilateral Breath Sounds Airway Exam Known Difficult Airway: No Mallampati Class: 1 Mouth Opening: Normal (> 3cm) Thyromental Distance: Greater than 3 cm Neck Range of Motion: Full ROM Neck Circumference: Normal Teeth Condition: Normal Dentition ASA Classification ASA Score: ASA 2 Emergency Case?: No NPO Status NPO Status: NPO Clears >2 hours, Solids >8 hours Status Status: Not Relevant due to Medical History Anesthesia Plan Resuscitation Status: Full Code Anesthesia Technique: General Anesthesia Airway Planned: Natural Airway Monitors Used: Standard Monitors
[2020-08-07 12:14] VITALS: BMI 45.2
--- NOTE | 2020-08-07 12:30 | STOM_PTH ---
PATIENT: Sinai Clement LOC: [place] Gu#:[id number] AGE/SX: 24/F ROOM: RE08/05/[address]: Loree Victoria MD : 1995 BED: A DIS: 08/07/2020 SPEC #: [id number] RECD: 08/07/20 16:49 STATUS: VIK REQ #: [id number] СВЕТЛАНА: 08/07/20 12:[address]: Loree Victoria DEPT: Surgical Specimen RECD BY: Natalya Tomlin ENTERED: 08/07/20 16:50 SP TYPE: STOMACH OTHR DR: KARLA Simmons PA Cole, Shola Mark A Dittenbir, MD Patrick Fitzpatrick, DO Kaplin, Aviva W Leung, Christie Paul Pace, MD Carl B Petri, MD Deane Rankin, MD Stoiber, Laura M Unknown,Unknown Tissues: 1 - STOMACH BIOPSY 2 - ESOPHAGUS BIOPSY Procedures: GROSS AND MICRO LEVEL 4 Comments: [id number]
--- NOTE | 2020-08-07 13:39 | W.PM.PROGNOT ---
Date of Service Date of service: 08/07/20 Time of Service: 12:15 Assessment and Plan Assessment and plan (1) Lower GI bleed: Status: Acute Assessment and plan: Sinai is a pleasant 24 year old female seen in the office for rectal bleeding. She was going to undergo colonoscopy in 2 weeks. She came to the ER due to tachycardia and continued bleeding. Was noted to have a Hgb of <7. Patient admitted for blood transfusion. Patient was give 4 units of blood. Hgb today is 11.1 Discussed with the patient doing a EGD/Colonoscopy Risks, benefits and complications have been reviewed. Complications include but are not limited to bleeding, pain, perforation, missed small lesion/polyp, sore throat, aspiration and adverse reaction to the medications. Questions were entertained and answered to their satisfaction and they wished to proceed. No guarantees were given or implied. Subjective Subjective Interval history since last seen: Sinai was seen in the PACU prior to her procedure. She is feeling well. She didn't have a lot of bleeding with the prep. Her Hgb this am was 11.1. She continues to not have any pain. Exam Const General: cooperative, comfortable and no acute distress Orientation: alert and oriented x3 HENMT Head: normocephalic and atraumatic GI Inspection: normal to inspection and obesity Palpation: soft, no hepatosplenomegaly and nontender Auscultation: normal bowel sounds Objective Last Vital Signs Temp 97.2 F L 08/07/20 11:44 Pulse 89 08/07/20 11:44 Resp 18 08/07/20 11:44 BP 129/83 08/07/20 11:44 Pulse Ox 99 08/07/20 11:44 Laboratory Results - last 24 hr 08/07/20 08:30 Hgb 11.1 L D
--- NOTE | 2020-08-07 13:43 | DSE_ITS ---
Documented by User: Loree Victoria MD 08/09/20 07:31 Date of service: 08/07/20 DS: Diagnosis Discharge Diagnosis (1) Lower GI bleed: Status: Acute Discharge Plan Disposition Patient Disposition: HOME Condition: Improving Discharge Details Reason For Visit: LGI BLEED Admit Date/Time: 08/05/20 19:11 Admit Provider: Loree Victoria Attending Provider: Loree Victoria Primary Care Provider: Unknown,Unknown Hospital Course Hospital Course: leonel is a pleasant 24 year old femlae admitted Saturday 08/05 from the ER due to anemia with a Hgb of 6.5. She had been seen in the office with rectal bleeding and was scheduled for an outpatient colonoscopy. Due to her anemia the patient was admitted, transfused and underwent EGD and Colonoscopy. EGD was pretty unremarkable. Colonoscopy revealed external and internal hemorrhoids. Internal hemorrhoids were banded. Patient will be discharged with hydrocortizone rectal cream and follow up in the office for discussion of external hemorrhoidectomy. I will also refer her for capsule endoscopy as her decrease in Hgb is unusual from hemorrhoids alone. Home Meds and New Rx's Prescriptions: New hydrocortisone 2.5 % cream with perineal applicator 1 applic MO BID Qty: 30 RF: 1 Discontinued bisacodyl [Dulcolax (bisacodyl)] 5 mg tablet,delayed release (DR/EC) 5 mg PO ONCE Qty: 4 RF: 0 polyethylene glycol 3350 17 gram powder in packet 255 g PO DAILY Qty: 15 RF: 0 No Action eszopiclone [Lunesta] 1 mg tablet 1 mg PO QHS RF: 0 propranolol 10 mg Tablet 10 mg PO TID PRN (Reason: Anxiety) RF: 0 bupropion HCl [Wellbutrin XL] 150 mg tablet extended release 24 hr 300 mg PO QAM RF: 0 dexmethylphenidate [Focalin XR] 20 mg capsule,ER biphasic 50-50 10 mg PO DAILY RF: 0 fluoxetine [Prozac] 40 mg capsule 60 mg PO DAILY RF: 0 levomefolate calcium 7.5 mg tablet 15 mg PO DAILY RF: 0 Discharge Instructions Instructions: Hemorrhoids (DC), Sitz Bath (DC), Rubber Band Ligation (DC) Additional Instructions: You were noted to have internal hemorrhoids that were banded. You also have some external hemorrhoids. 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 Follow up: 2 weeks in the office Please call if you develop: fevers >101.5 Nausea or Vomiting Abdominal pain that is not transient Rectal bleeding that is more then a tbsp A hard abdomen and inability to pass gas DAY SURGERY UNIT POST ENDOSCOPY INSTRUCTIONS Instructions for everyone who is given Anesthesia: For your safety, please do the following for the next 24 Hours: a. Do not drive or operate dangerous equipment b. Do not drink alcohol beverages or use any recreational drugs for the first 24 hours or while taking pain medications. The medications in your body may have a reaction that can be dangerous. c. Do not make any important decisions or sign any important papers 1. Generally there are no restrictions on your activity after a day or so has gone by, but you may feel a bit fatigued for a few days. 2. After you arrive home you may have a light meal and return to a normal diet as you can tolerate it without feeling sick to your stomach. 3. After surgery, you may feel pain or discomfort. This should be only transient, but if it persists please contact your doctor. 4. If there are any questions regarding the findings of your procedure, please feel free to contact your doctor. 6. If you are unable to contact your doctor with a problem, contact the hospital at [phone]. 7. Continue all your regular medications unless directed otherwise. I understand the above instructions and have no questions. Signature of Patient or Responsible Adult Escort Date/Time Name of Responsible Adult Escort Signature of Nurse Date/Time Stand Alone Forms: Nursing Discharge Form Referrals: Loree Victoria MD [ [facility]FF PHYSICIAN] - 08/20/20 8:00 am Activity:: Activity as Tolerated Equipment/Supplies:: sitz bath Diet:: high fiber Discharge Orders Discharge Orders: Discharge Order (Routine); Ordered 08/07/20 Ordered By: Natty Amaral Discharge Data Discharge Date/Time-TO BE ENTERED AT DEPARTURE: 08/07/20 16:51 DS: Summary Time Spent with Patient providing and/or coordinating discharge services: Less than 30 minutes Status at Discharge Functional status at discharge: independent ambulation Overall status at discharge: patient is progressing back to baseline Mental Status: mental status grossly normal Speech and Movement: speech and movement normal Mood: congruent mood Affect: normal affect Exam GI Inspection: normal to inspection Palpation: soft and nontender Auscultation: normal bowel sounds Psych Mental Status: mental status grossly normal Speech and Movement: speech and movement normal Mood: congruent mood Affect: normal affect DS: Data Vitals/I&O Vitals and I&O: Vital Signs Temperature 97.2 F L 08/07/20 11:44 Temperature Source Tympanic 08/07/20 11:44 Pulse 89 08/07/20 11:44 Pulse Rhythm Regular 08/07/20 08:02 Respiratory Rate 18 08/07/20 11:44 Respiratory Effort Non-Labored 08/07/20 08:02 Respiratory Depth Normal 08/07/20 08:02 Respiratory Pattern Normal 08/07/20 08:02 Blood Pressure 129/83 08/07/20 11:44 Blood Pressure Position Sitting 08/05/20 17:33 Pulse Oximetry 99 08/07/20 11:44 Oxygen Delivery Method Room Air 08/07/20 11:44 Oxygen Flow Rate 0 08/07/20 11:44 Pain Level 0 08/07/20 11:44 Intake & Output 08/06/20 08/07/20 08/07/20 23:59 11:59 23:59 Intake Total 4310 / 5360 400 / 400 Output Total 400 / 1550 Balance 3910 / 3810 400 / 400 Weight 255 lb 8 oz Intake: IV 400 / 400 Oral 4000 / 4500 Blood Product 280 / 780 Rbc Leuko Reduced Unit 280 / 280 [id number] Other 30 / 60 Rbc Leuko Reduced Unit 30 / 30 [id number] Output: Urine 400 / 1550 Other: Urine Color Yellow Straw Urine Appearance Clear Clear Urine Odor None Comment Patient uses bathroom independently. Stool Size Moderate Copious Stool Characteristics Liquid Liquid Voiding Methods Toilet Toilet Data Completed and Pending Labs on day of discharge: Labs from last 24 hours 08/07/20 08:30 Hgb 11.1 L D PFSH Medical History ADHD Anxiety Depression Hx of hemorrhoids Insomnia Social History Smoking/Tobacco Use Status: Never Smoking risk assessment performed?: Yes Alcohol Intake: never Drug use: Daily Substance use type: marijuana Current gender identity: female Do you feel safe at home: Yes Do you feel safe in your relationship?: Yes Documented by User: [email or web address] Funes 08/07/20 15:40 Discharge Plan Disposition Patient Disposition: HOME Condition: Improving Discharge Details Reason For Visit: LGI BLEED Admit Date/Time: 08/05/20 19:11 Admit Provider: Loree Victoria Attending Provider: Loree Victoria Primary Care Provider: Unknown,Unknown Hospital Course Hospital Course: leonel is a pleasant 24 year old femlae admitted Saturday 08/05 from the ER due to anemia with a Hgb of 6.5. She had been seen in the office with rectal bleeding and was scheduled for an outpatient colonoscopy. Due to her anemia the patient was admitted, transfused and underwent EGD and Colonoscopy. EGD was pretty unremarkable. Colonoscopy revealed external and internal hemorrhoids. Internal hemorrhoids were banded. Patient will be discharged with hydrocortizone rectal cream and follow up in the office for discussion of external hemorrhoidectomy. I will also refer her for capsule endoscopy as her decrease in Hgb is unusual from hemorrhoids alone. Home Meds and New Rx's Prescriptions: New hydrocortisone 2.5 % cream with perineal applicator 1 applic MO BID Qty: 30 RF: 1 Discontinued bisacodyl [Dulcolax (bisacodyl)] 5 mg tablet,delayed release (DR/EC) 5 mg PO ONCE Qty: 4 RF: 0 polyethylene glycol 3350 17 gram powder in packet 255 g PO DAILY Qty: 15 RF: 0 No Action eszopiclone [Lunesta] 1 mg tablet 1 mg PO QHS RF: 0 propranolol 10 mg Tablet 10 mg PO TID PRN (Reason: Anxiety) RF: 0 bupropion HCl [Wellbutrin XL] 150 mg tablet extended release 24 hr 300 mg PO QAM RF: 0 dexmethylphenidate [Focalin XR] 20 mg capsule,ER biphasic 50-50 10 mg PO DAILY RF: 0 fluoxetine [Prozac] 40 mg capsule 60 mg PO DAILY RF: 0 levomefolate calcium 7.5 mg tablet 15 mg PO DAILY RF: 0 Discharge Instructions Instructions: Hemorrhoids (DC), Sitz Bath (DC), Rubber Band Ligation (DC) Additional Instructions: You were noted to have internal hemorrhoids that were banded. You also have some external hemorrhoids. 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 Follow up: 2 weeks in the office Please call if you develop: fevers >101.5 Nausea or Vomiting Abdominal pain that is not transient Rectal bleeding that is more then a tbsp A hard abdomen and inability to pass gas DAY SURGERY UNIT POST ENDOSCOPY INSTRUCTIONS Instructions for everyone who is given Anesthesia: For your safety, please do the following for the next 24 Hours: a. Do not drive or operate dangerous equipment b. Do not drink alcohol beverages or use any recreational drugs for the first 24 hours or while taking pain medications. The medications in your body may have a reaction that can be dangerous. c. Do not make any important decisions or sign any important papers 1. Generally there are no restrictions on your activity after a day or so has gone by, but you may feel a bit fatigued for a few days. 2. After you arrive home you may have a light meal and return to a normal diet as you can tolerate it without feeling sick to your stomach. 3. After surgery, you may feel pain or discomfort. This should be only transient, but if it persists please contact your doctor. 4. If there are any questions regarding the findings of your procedure, please feel free to contact your doctor. 6. If you are unable to contact your doctor with a problem, contact the hospital at [phone]. 7. Continue all your regular medications unless directed otherwise. I understand the above instructions and have no questions. Signature of Patient or Responsible Adult Escort Date/Time Name of Responsible Adult Escort Signature of Nurse Date/Time Stand Alone Forms: Nursing Discharge Form Referrals: Loree Victoria MD [ [facility] ST[facility]FF PHYSICIAN] - 08/20/20 8:00 am Activity:: Activity as Tolerated Equipment/Supplies:: sitz bath Diet:: high fiber Discharge Orders Discharge Orders: Discharge Order (Routine); Ordered 08/07/20 Ordered By: Natty Amaral Discharge Data Discharge Date/Time-TO BE ENTERED AT DEPARTURE: 08/07/20 16:51 PFSH Medical History ADHD Anxiety Depression Hx of hemorrhoids Insomnia Social History Smoking/Tobacco Use Status: Never Smoking risk assessment performed?: Yes Alcohol Intake: never Drug use: Daily Substance use type: marijuana Current gender identity: female Do you feel safe at home: Yes Do you feel safe in your relationship?: Yes
[2020-08-07 13:55] VITALS: BP 113/76; PULSE 74; RESP 20; TEMP 36.5; O2SAT 100
[2020-08-07] MEDS: Acetaminophen 325 MG TAB 650 MG PO (13:57)
--- NOTE | 2020-08-07 13:57 | W.ANESPOSTOP ---
Postoperative Evaluation Date, Time and Location Date Performed: 08/07/20 Time Performed: 13:57 Patient Location: Med/Surg Vital Signs Most Recent Imported Vital Signs: Most Recent Vital Signs Temp Pulse Resp BP Pulse Ox 36.5 C 74 20 113/76 100 08/07/20 13:55 08/07/20 13:55 08/07/20 13:55 08/07/20 13:55 08/07/20 13:55 Pain Score Most Recent Pain Score: Most Recent Pain Score Pain Level 8 08/07/20 13:55 Assessment Mental Status: Awake (Alert & Oriented to Patient Baseline) Airway and Respiratory Function: Patent airway with normal (patient baseline) respiratory exam Cardiovascular Function: Hemodynamically Stable Hydration Status: Adequately Hydrated Nausea & Vomiting: No Nausea or Vomiting Pain: Pain is Moderate or Severe Postoperative Pain Management: Ongoing pain, patient will be managed as an inpatient Peripheral Nerve Block: Patient did not receive a nerve block
[2020-08-07] MEDS: buPROPion-XL 150 MG TABCR 300 MG PO (13:58)
[2020-08-07] MEDS: FLUoxetine 20 MG CAP 60 MG PO (13:58)
[2020-08-07] MEDS: Normal Saline Flush 10 ML SYR IVP (14:26)
[2020-08-07] MEDS: Ketorolac 30 MG/ML VIAL IVP (14:26)
[2020-08-07 15:27] VITALS: BP 117/80; PULSE 71; RESP 18; TEMP 36.5; O2SAT 98
--- NOTE | 2020-08-07 17:56 | PDOC.CMDIS ---
- If Service Date Differs Date of service: 08/07/20 Time of Service: 17:56 LACE Index Scoring Tool - Questions: Length of Stay (in days): 2 Acuity (Admit via E.D.?): Yes E.D. Visits: 2 - Answers: Total Score: 7 Risk of Readmission: Low Risk Care Management Discharge Reason for Hospitalization: Lower GI Bleed Discharge Plan: [facility] will return home with no services at this time. She will be driven home by her boyfriend via private vehicle. She will follow up surgical services and her discharge plan of care. Patient/Family Education Needs: Review discharge instructions regarding activity levels and medications, discussion of self care needs.
== END 2020-08-07 16:51 | disposition home or self-care (01) ==
LOC: ER 18:51 → MS 20:02
PROVIDERS: General Practice; Admitting Provider Surgery; Emergency Provider Emergency Medicine; Visit Provider Surgery
PROC: (CPT 43239; principal; 2020-08-07 12:00)
DX: K64.2 Third degree hemorrhoids (principal); K62.5 Hemorrhage of anus and rectum; R00.0 Tachycardia, unspecified; R23.1 Pallor; F41.9 Anxiety disorder, unspecified; F32.9 Major depressive disorder, single episode, unspecified; G47.00 Insomnia, unspecified; F90.9 Attention-deficit hyperactivity disorder, unspecified type; Z20.822 Contact with and (suspected) exposure to COVID-19; D64.9 Anemia, unspecified
CPT/HCPCS: 43239; 46221; 45378; 36415; 36430; 80053; 86850; 86900; 86901; 86920; 87635; 88305; 93005; 99285; 81025; 83735; 85014; 85018; 85025; 85610; 85730; 93010; 99219; G0378; J1885; J2001; J2765; P9016

== ENCOUNTER 2020-08-28 22:35 | Emergency (ER) | payer OTHER, SELFPAY ==
[2020-08-28 22:40] VITALS: BP 151/105; PULSE 107; RESP 15; TEMP 36.8; O2SAT 99
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
[2020-08-28] MEDS: Ketorolac 30 MG/ML VIAL (23:59)
[2020-08-29 00:01] VITALS: BP 151/80; PULSE 88; RESP 15; TEMP 36.8; O2SAT 99
== END 2020-08-28 23:53 | disposition home or self-care (01) ==
PROVIDERS: Emergency Provider Student in an Organized Health Care Education/Training Program
DX: T20.10XA Burn of first degree of head, face, and neck, unspecified site, initial encounter (principal); T31.0 Burns involving less than 10% of body surface; X12.XXXA Contact with other hot fluids, initial encounter
CPT/HCPCS: 16000; 90471; 96372; 96374; 99284; 99283; J1885

== ENCOUNTER 2020-09-03 18:14 | Emergency (ER) | payer OTHER, SELFPAY ==
[2020-09-03 18:25] VITALS: BP 138/98; PULSE 102; TEMP 36.5; O2SAT 99
--- NOTE | 2020-09-03 18:51 | ED.GENADUL_ITS ---
Discharge Plan Disposition Patient Disposition: HOME Condition: Stable Discharge Details Clinical Impression: Bright red rectal bleeding, Anemia Primary Care Provider: Unknown,Unknown ED Provider: Isatu Trujillo Home Meds and New Rx's Prescriptions: Continued eszopiclone [Lunesta] 1 mg tablet 1 mg PO QHS PRNRF: 0 silver sulfadiazine [Silvadene] 1 % cream 1 applic topical BID Qty: 20 RF: 0 propranolol 10 mg Tablet 10 mg PO TID PRN (Reason: Anxiety) RF: 0 bupropion HCl [Wellbutrin XL] 150 mg tablet extended release 24 hr 300 mg PO QAM RF: 0 dexmethylphenidate [Focalin XR] 20 mg capsule,ER biphasic 50-50 10 mg PO DAILY RF: 0 fluoxetine [Prozac] 40 mg capsule 60 mg PO DAILY RF: 0 levomefolate calcium 7.5 mg tablet 15 mg PO DAILY RF: 0 hydrocortisone 2.5 % cream with perineal applicator 1 applic [place] BID Qty: 30 RF: 1 Discharge Instructions Instructions: Anemia (ED) Additional Instructions: Do not have any evidence of acute bleeding here today. However, we are concerned that your hemoglobin has been dropping. Not currently an unsafe level requiring transfusion. However, as it is discussed by Dr. Douglas, I would like for you to follow-up Wednesday to have your hemoglobin rechecked. Please also call [facility] to see if you can schedule your capsule study sooner than later. If you develop increased shortness of breath, chest pain, difficulty breathing, severe bleeding or other new/worsening symptom please seek care urgently once again Referrals: Priyanka Douglas DO [OSTEOPATHIC DOCTOR] - Discharge Data Discharge Date/Time-TO BE ENTERED AT DEPARTURE: 09/03/20 20:00 Medical Decision Making Patient is a pleasant 26-year-old female presenting today with chief complaint of rectal bleeding. Patient underwent surgical banding of hemorrhoids, 08/09/2020. Since that time, patient, managed by general surgery. She was last seen on 09/09/20. Patient was advised to continue with hydrocortisone cream. States that despite this, she continued to have intermittent spotting followed b y more continuous bleeding over the past 4 days. States she feels, sick again, referring to when she was recently anemic. Endorsing fatigue, exertional SOB. Denies CP, fevers, abdominal pain, change in appetite. On exam, patient appears nontoxic. Lungs clear. Abdomen benign. Dr. Douglas knows of the patient. She evaluated the patient and preformed bedside anoscopy. No active bleeding or thrombosed hemorrhoids. Labs reviewed. Hgb 9.1, down from 11.1 on 08/07/20. Dr. Douglas plans to see patient in clinic on Wednesday and recheck Hgb. Patient had banding of her hemorrhoids, colonoscopy and endoscopy at that time. They have referred patient ot [facility] for capsule endoscopy. PT/PTT WNL. No other signficant abnormality. Iron studies added. Patient was advised to increase iron in diet. She will call [facility] to discuss f/u. She will also f/u with general surgery with repeat Hgb on Wednesday. She will keep stool soft and avoid straining. Return precautions discussed. All quesitoins and concerns were addressed, she is in agreement with this plan. HPI General Mode of arrival: ambulatory . Date/Time Provider Initiated Documentation: 09/03/20 18:20 . Limitations to Documentation: no limitations . Information obtained by: patient and RN notes reviewed . History of Present Illness 24 year old F presents to the emergency department with the chief complaint of rectal bleeding, described as moderate and similar to prior episodes, Quality is described as other (denies any pain), and is localized to the buttocks. Patient started experiencing this day(s) (4) and it has been constant. No relieving factors improve symptom(s), No exacerbating factors reported . Patient notes shortness of breath (with exertion); denies chest pain, cough, fever/chills, loss of appetite and nausea/vomiting. Patient did receive the following treatments prior to arrival, none Related Data Home Medications Medication Instructions Recorded Confirmed propranolol 10 mg PO TID PRN 07/19/20 09/03/20 bupropion HCl 150 mg 24 hr tablet, 300 mg PO QAM tab 07/23/20 09/03/20 extended release dexmethylphenidate 20 mg 10 mg PO DAILY cap 07/23/20 09/03/20 capsule,extended release -47 eszopiclone 1 mg tablet 1 mg PO QHS PRN 07/23/20 09/03/20 fluoxetine 40 mg capsule 60 mg PO DAILY cap 07/23/20 09/03/20 levomefolate calcium 7.5 mg tablet 15 mg PO DAILY tab 07/23/20 09/03/20 hydrocortisone 1 applic [place] BID #30 g 08/07/20 09/03/20 silver sulfadiazine [Silvadene] 1 applic TOPICAL BID #20 g 08/28/20 09/03/20 Previous Rx's Medication Instructions Recorded hydrocortisone 1 applic [place] BID #30 g 08/07/20 silver sulfadiazine [Silvadene] 1 applic TOPICAL BID #20 g 08/28/20 Allergies Allergy/AdvReac Type Severity Reaction Status Date / Time hazelnut Allergy Itching Verified 09/03/20 18:29 soy Allergy Itching Verified 09/03/20 18:29 General Stated Complaint: GI Bleed RUBENS: 2 Review of Systems Constitutional Constitutional: Reports as per HPI, Denies chills, Reports fatigue, Denies fever(s) and Denies headache(s) ENT Ears, Nose, Mouth, and Throat: Denies headache(s) Cardiovascular Cardiovascular: Reports as per HPI, Denies chest pain and Reports dyspnea (with exertion) Respiratory Respiratory: Reports as per HPI, Denies cough and Reports dyspnea (with exertion) Gastrointestinal Gastrointestinal: Reports as per HPI Musculoskeletal Musculoskeletal: Reports as per HPI and Denies back pain Integumentary/Breasts Skin/Breast: Reports as per HPI and Denies rash Neurologic Neurologic: Reports as per HPI and Denies headache(s) Endocrine Endocrine: Reports fatigue PFSH Medical History ADHD Anxiety Depression Hx of hemorrhoids Insomnia Surgical History H/O esophagogastroduodenoscopy (~07/2020) History of colonoscopy (~07/2020) S/P hemorrhoidectomy (~08/07/20) Social History Smoking/Tobacco Use Status: Never Smoking risk assessment performed?: Yes Alcohol Intake: never Drug use: Daily Substance use type: marijuana Current gender identity: female Do you feel safe at home: Yes Do you feel safe in your relationship?: Yes Exam Const General: cooperative, healthy appearing, comfortable, no acute distress and well developed Nutritional Appearance: well nourished and obese Orientation: alert and awake HENMT Head: normal to inspection Mouth: moist mucous membranes Eyes Conjunctivae: conjunctival abnormality bilaterally pallor Resp Effort & Inspection: normal respiratory effort, able to speak in complete sentences and no respiratory distress Auscultation: clear to auscultation bilaterally, no rales, no rhonchi and no wheezes Cardio Rate: regular rate Rhythm: regular rhythm Heart Sounds: S1 normal and S2 normal GI Inspection: normal to inspection Palpation: soft, no hepatosplenomegaly and nontender Auscultation: normal bowel sounds Rectal Exam - female: visual inspection normal Skin General skin exam: no rashes or lesions noted Trauma: no lacerations or abrasions Neuro General: patient alert and patient awake Cognition: normal cognition Speech: speech normal Gait: normal gait Psych Appearance: grossly normal and well kempt Mental Status: mental status grossly normal Speech and Movement: speech and movement normal Course Vital Signs Vital signs: Vital Signs Temperature 36.5 C 09/03/20 18:25 Pulse 102 H 09/03/20 18:25 Blood Pressure 138/98 H 09/03/20 18:25 Pulse Oximetry 99 09/03/20 18:25 Temperature 36.5 C 09/03/20 18:25 Temperature Source Temporal Artery Scan 09/03/20 18:25 Pulse 102 H 09/03/20 18:25 Respiratory Effort Non-Labored 09/03/20 18:28 Blood Pressure 138/98 H 09/03/20 18:25 Blood Pressure Position Sitting 09/03/20 18:25 Pulse Oximetry 99 09/03/20 18:25 Oxygen Delivery Method Room Air 09/03/20 18:25 Oxygen Flow Rate 0 09/03/20 18:25 Pain Level 0 09/03/20 18:25
[2020-09-03 18:54] LABS: Abs Immature Grans 0.09 10^3/uL (0.0-0.06); Absolute Basophil Count 0.08 10^3/uL (0.0-0.2); Absolute Eosinophil Count 0.63 10^3/uL (0.0-0.7); Absolute Lymphocyte Count 3.78 10^3/uL (1.2-3.4); Absolute Monocyte Count 0.87 10^3/uL (0.1-0.8); Basophils % 0.7; Eosinophils % 5.5; HCT 29.5 % (36.0-46.0); HGB 9.1 g/dL (11.2-15.7); Immature Grans % 0.8; MCH 24.3 pg (27.0-33.0); MCHC 30.8 % (32.0-36.0); MCV 78.9 fL (80-95); Monocytes % 7.6; Neutrophils % 52.4; Nucleated RBC 0 %; Platelet Count 365 10^3/uL (130-400); RBC 3.74 10^6/uL (3.93-5.22); RDW 15.6 % (11.7-14.6); RDW-SD 44.5 fL; WBC 11.45 10^3/uL (4.4-10.8)
[2020-09-03 19:08] LABS: ALT 43 U/L (14-59); AST 40 U/L (15-37); Albumin 3.5 g/dL (3.4-5.0); Alkaline Phosphatase 78 U/L (46-116); Anion Gap 10.6 mmol/L (3-11); BUN 9 mg/dL (7-18); Bilirubin, Total 0.3 mg/dL (0.2-1.0); CO2 26.4 mmol/L (21.0-32.0); CREATININE 0.7 mg/dL (0.55-1.02); Calcium 8.6 mg/dL (8.5-10.1); Chloride 105 mmol/L (98-107); Glucose 110 mg/dL (74-106); Magnesium 1.9 mg/dL (1.8-2.4); Potassium 3.9 mmol/L (3.5-5.1); Sodium 142 mmol/L (136-145); Total Protein 7.7 g/dL (6.4-8.2)
[2020-09-03 19:23] LABS: PTT Activated 23.1 sec (21.0-27.5); Prothrombin Time 9.8 sec (9.3-11.0)
--- NOTE | 2020-09-03 19:23 | W.PM.PROGNOT ---
Date of Service Date of service: 09/03/20 Time of Service: 19:23 Assessment and Plan Assessment and plan (1) Anemia: Status: Chronic (2) Bright red rectal bleeding: Status: Acute Subjective Subjective Interval history since last seen: pt went to [facility] w/ BRRP and feeling dizzy adn poorly. Hgb was 9.4 in clinic. Pt was urged to come into the ED for exam. pt has noticed BRB w/ BM the last few days. She denies straining to move her bowls and we d/w bowel regimine to prevent contatption/ straining. she denies sny severe pain. She notes some dizziness. BP is stable-actual on the high side. Needs to be monitored and followed by PCP. On exam: no fissures or masses. good tone. No significant hemorrhoidal dx- still some swelling from surgery. Pt is 3 wks postOP and rubber press tender- so the exam was very brief. no active or old bleeding. And I do not appreciate any significant hemorrhoidal disease. hgb 9.4 -I did review [facility] notes 08/09 The scope was then introduced and retro-flexed. Grade 3 internal hemorrhoids were noted at the 3 and 6 o'clock position. No masses or polyps were identified on retroflexion. The scope was then advanced to the ileocecal vlave with difficulty. I could not get the scope to advance into the cecum. The prep was adequate. The scope was then slowly retracted over 12 minutes back into the rectum. There were no polyps. There was no diverticulosis noted. The scope was removed. An anoscope was then placed and 2 large internal hemorrhoids were banded Her hemoglobin in the ER was 9.1. She has no nausea and vomiting. She has no other abdominal pain. She has no significant rectal pain. She is very adamant that it is rectal and its not vaginal bleeding. It is also bright red and dark not dark. She has not heard back from [facility] regarding doing a capsule endoscopy. And I will touch base with my office to see where we are in the process of getting this scheduled. I would also like her to follow-up on Wednesday for repeat hemoglobin. May need to get her set up for IV iron therapy. -I do not have a good explanation for where her bleeding is coming from. I see no signs of any active or old bleeding. However she has blood down the hemoglobin is 6.5. So I do want to continue to monitor her closely. -I did review her bowel regimen that she is on to continue to avoid constipation or straining to move her bowels. We discussed the importance of dietary fiber and water. She should continue use the hydrocortisone cream twice a day. If she notices heavy bleeding, weakness, dizziness return to the ER. 30 minutes were spent in exam, reviewing her documentation and formulating a treatment plan Objective Last Vital Signs Temp 36.5 C 09/03/20 18:25 Pulse 102 H 09/03/20 18:25 BP 138/98 H 09/03/20 18:25 Pulse Ox 99 09/03/20 18:25 Laboratory Results - last 24 hr 09/03/20 09/03/20 18:45 18:45 WBC 11.45 H RBC 3.74 L Hgb 9.1 L Hct 29.5 L MCV 78.9 L MCH 24.3 L MCHC 30.8 L RDW 15.6 H Plt Count 365 D MPV 11.0 Immature Gran % 0.8 Neutrophils % 52.4 Lymphocytes % 33.0 Monocytes % 7.6 Eosinophils % 5.5 Basophils % 0.7 Nucleated RBC % 0 Absolute Neutrophils 6.00 Absolute Lymphocytes 3.78 H Absolute Monocytes 0.87 H Absolute Eosinophils 0.63 Absolute Basophils 0.08 Sodium 142 Potassium 3.9 Chloride 105 Carbon Dioxide 26.4 Anion Gap 10.6 BUN 9 Creatinine 0.7 Estimated GFR/1.73 m2 >= 60.00 Glucose 110 H Calcium 8.6 Magnesium 1.9 Total Bilirubin 0.3 AST 40 H ALT 43 Alkaline Phosphatase 78 Total Protein 7.7 Albumin 3.5
[2020-09-03 20:04] VITALS: BP 138/98; PULSE 102; TEMP 36.5; O2SAT 99
[2020-09-03 21:20] LABS: Iron 29 ug/dL (50-170); Total Iron Binding Capacity 468 ug/dL (250-450); Transferrin Sat 6 % (15-50)
[2020-09-03 21:35] LABS: Ferritin 12 ng/mL (8-252)
== END 2020-09-03 20:00 | disposition home or self-care (01) ==
PROVIDERS: Emergency Provider Physician Assistant
DX: K62.5 Hemorrhage of anus and rectum (principal); D64.9 Anemia, unspecified
CPT/HCPCS: 36415; 80053; 86850; 86900; 86901; 99283; 82728; 83540; 83550; 83735; 85025; 85610; 85730

== ENCOUNTER 2020-09-05 08:59 | Outpatient (CLI) | payer OTHER, SELFPAY ==
[2020-09-05 15:30] LABS: Abs Immature Grans 0.08 10^3/uL (0.0-0.06); Absolute Basophil Count 0.07 10^3/uL (0.0-0.2); Absolute Eosinophil Count 0.59 10^3/uL (0.0-0.7); Absolute Lymphocyte Count 3.97 10^3/uL (1.2-3.4); Absolute Monocyte Count 0.71 10^3/uL (0.1-0.8); Basophils % 0.6; HCT 27.1 % (36.0-46.0); HGB 8.4 g/dL (11.2-15.7); Immature Grans % 0.7; Lymphocytes % 33.9; MCH 24.4 pg (27.0-33.0); MCV 78.8 fL (80-95); MPV 10.4 fL (8.0-11.0); Monocytes % 6.1; Neutrophils % 53.7; Nucleated RBC 0 %; Platelet Count 451 10^3/uL (130-400); RBC 3.44 10^6/uL (3.93-5.22); RDW 15.8 % (11.7-14.6); RDW-SD 44.6 fL; WBC 11.72 10^3/uL (4.4-10.8)
[2020-09-05 15:31] LABS: Absolute Neutrophil Count 6.29 10^3/uL (1.2-6.7)
== END 2020-09-05 09:00 | disposition home or self-care (01) ==
LOC: LBO 09:02
PROVIDERS: Visit Provider Surgery
DX: D64.9 Anemia, unspecified (principal); K92.2 Gastrointestinal hemorrhage, unspecified
CPT/HCPCS: 36415; 85025

== ENCOUNTER 2020-09-06 15:05 | Inpatient (IN) | payer OTHER, SELFPAY ==
[2020-09-06] VITALS (8 sets, daily range): BP systolic 112–143; BP diastolic 32–85; PULSE 87–128; RESP 16–19; TEMP 36.4–37.3; TEMPC 36.6; O2SAT 99–100; BMI 46.0
--- NOTE | 2020-09-06 15:33 | W.ED.GENAD ---
Discharge Plan Disposition Patient Disposition: [facility] INPATIENT Condition: Stable Discharge Details Chief Complaint: GI Bleed Clinical Impression: Lower GI bleed Primary Care Provider: Nieves,Local ED Provider: Michael Ricci Home Meds and New Rx's Prescriptions: No Action eszopiclone [Lunesta] 1 mg tablet 1 mg PO QHS PRNRF: 0 silver sulfadiazine [Silvadene] 1 % cream 1 applic topical BID Qty: 20 RF: 0 propranolol 10 mg Tablet 10 mg PO TID PRN (Reason: Anxiety) RF: 0 bupropion HCl [Wellbutrin XL] 150 mg tablet extended release 24 hr 300 mg PO QAM RF: 0 dexmethylphenidate [Focalin XR] 20 mg capsule,ER biphasic 50-50 10 mg PO DAILY RF: 0 fluoxetine [Prozac] 40 mg capsule 60 mg PO DAILY RF: 0 levomefolate calcium 7.5 mg tablet 15 mg PO DAILY RF: 0 hydrocortisone 2.5 % cream with perineal applicator 1 applic [place] BID Qty: 30 RF: 1 Medical Decision Making 24 yo female with recurrent bright red blood per rectum with prior internal and external hemorrhoids on prior colonoscopy comes in with general weakness and continued blood in stools. She had a egd as well which was unremarkable. SHe states she has had the blood in her stool for about a week now. Denies loc and no chest pain or abdomen pain. She has no abdomen tenderness. She went to her surgeon's office and was referred here, and they called and are discussing doing procedure with anesthesia, suspect recurrent lower gi bleed, rectal exam deferred for now, will evaluate for anemia and reassess. hemoglobin 7.4 and stable so will hold on transfusion, surgery planning on brining to the OR for further management Differential Diagnosis Differential Diagnosis: hemorrhoids, avm Medical Records Medical records reviewed: Yes I reviewed the patient's medical records. Lab Data Lab results reviewed: Yes I reviewed the patient's lab results. HPI General Mode of arrival: ambulatory. Date/Time Provider Initiated Documentation: 09/06/20 15:06. Limitations to Documentation: no limitations. Information obtained by: patient. History of Present Illness 24 year old F presents to the emergency department with the chief complaint of bright red blood in stool, described as moderate, Patient reports no radiation. and it has been constant. No relieving factors improve symptom(s), No exacerbating factors reported . Patient notes weakness. Patient did receive the following treatments prior to arrival, none Related Data Home Medications Medication Instructions Recorded Confirmed propranolol 10 mg PO TID PRN 07/19/20 09/06/20 bupropion HCl 150 mg 24 hr tablet, 300 mg PO QAM tab 07/23/20 09/06/20 extended release dexmethylphenidate 20 mg 10 mg PO DAILY cap 07/23/20 09/06/20 capsule,extended release -39 eszopiclone 1 mg tablet 1 mg PO QHS PRN 07/23/20 09/06/20 fluoxetine 40 mg capsule 60 mg PO DAILY cap 07/23/20 09/06/20 levomefolate calcium 7.5 mg tablet 15 mg PO DAILY tab 07/23/20 09/06/20 hydrocortisone 1 applic [place] BID #30 g 08/07/20 09/06/20 silver sulfadiazine [Silvadene] 1 applic TOPICAL BID #20 g 08/28/20 09/06/20 Previous Rx's Medication Instructions Recorded hydrocortisone 1 applic [place] BID #30 g 08/07/20 silver sulfadiazine [Silvadene] 1 applic TOPICAL BID #20 g 08/28/20 Allergies Allergy/AdvReac Type Severity Reaction Status Date / Time hazelnut Allergy Itching Verified 09/06/20 14:36 soy Allergy Itching Verified 09/06/20 14:36 General Stated Complaint: GI Bleed RUBENS: 2 Review of Systems All systems reviewed & are unremarkable except as noted in HPI and below Constitutional Constitutional: Denies chills and Denies fever(s) Cardiovascular Cardiovascular: Denies chest pain and Denies dyspnea Respiratory Respiratory: Denies cough and Denies dyspnea Gastrointestinal Gastrointestinal: Denies abdominal pain, Denies nausea and Denies vomiting Psychiatric Psychiatric: Denies depression PFSH Medical History ADHD Anxiety Depression Hx of hemorrhoids Insomnia Surgical History H/O esophagogastroduodenoscopy (~07/2020) History of colonoscopy (~07/2020) S/P hemorrhoidectomy (~08/07/20) Social History Smoking/Tobacco Use Status: Never Smoking risk assessment performed?: Yes Alcohol Intake: never Drug use: Daily Substance use type: marijuana Current gender identity: female Do you feel safe at home: Yes Do you feel safe in your relationship?: Yes Exam Const General: no acute distress Orientation: alert HENMT Head: normal to inspection Ears: external ears normal General nose exam: external nose normal Mouth: moist mucous membranes Eyes General: appearance normal, both eyes and all related structures Neck Neck: normal visual inspection Resp Effort & Inspection: normal respiratory effort and able to speak in complete sentences Cardio Rate: tachycardic GI Palpation: soft, not rigid and nontender Skin General skin exam: no rashes or lesions noted Neuro General: patient alert and patient oriented x3 Extrem General: normal to inspection Psych Mental Status: mental status grossly normal Course Vital Signs Vital signs: Vital Signs Temperature 36.6 C 09/06/20 15:19 Pulse 128 H 09/06/20 15:19 Respiratory Rate 18 09/06/20 15:19 Blood Pressure 143/41 H 09/06/20 15:19 Pulse Oximetry 99 09/06/20 15:19 Temperature 36.6 C 09/06/20 15:19 Temperature Source Temporal Artery Scan 09/06/20 15:19 Pulse 128 H 09/06/20 15:19 Respiratory Rate 18 09/06/20 15:19 Blood Pressure 143/41 H 09/06/20 15:19 Blood Pressure Position Supine 09/06/20 15:19 Pulse Oximetry 99 09/06/20 15:19 Oxygen Delivery Method Room Air 09/06/20 15:19 Oxygen Flow Rate 0 09/06/20 15:19 Pain Level 6 09/06/20 15:19
[2020-09-06 16:15] LABS: ALT 45 U/L (14-59); AST 54 U/L (15-37); Albumin 3.4 g/dL (3.4-5.0); Alkaline Phosphatase 57 U/L (46-116); Anion Gap 14.3 mmol/L (3-11); BUN 9 mg/dL (7-18); Bilirubin, Total 0.3 mg/dL (0.2-1.0); CO2 23.7 mmol/L (21.0-32.0); CREATININE 0.8 mg/dL (0.55-1.02); Calcium 8.8 mg/dL (8.5-10.1); Chloride 105 mmol/L (98-107); Glucose 116 mg/dL (74-106); Magnesium 1.8 mg/dL (1.8-2.4); Potassium 4.3 mmol/L (3.5-5.1); Sodium 143 mmol/L (136-145); Total Protein 7.3 g/dL (6.4-8.2)
[2020-09-06 16:16] LABS: Abs Immature Grans 0.08 10^3/uL (0.0-0.06); Absolute Basophil Count 0.06 10^3/uL (0.0-0.2); Absolute Lymphocyte Count 3.87 10^3/uL (1.2-3.4); Absolute Monocyte Count 0.82 10^3/uL (0.1-0.8); Absolute Neutrophil Count 6.03 10^3/uL (1.2-6.7); Basophils % 0.5; Eosinophils % 4.4; HCT 24.3 % (36.0-46.0); Immature Grans % 0.7; Lymphocytes % 34.1; MCH 23.6 pg (27.0-33.0); MCHC 30.5 % (32.0-36.0); MCV 77.6 fL (80-95); MPV 10.8 fL (8.0-11.0); Monocytes % 7.2; Neutrophils % 53.1; Nucleated RBC 0 %; Platelet Count 429 10^3/uL (130-400); RBC 3.13 10^6/uL (3.93-5.22); RDW 15.9 % (11.7-14.6); RDW-SD 44.7 fL; WBC 11.36 10^3/uL (4.4-10.8)
[2020-09-06 16:19] LABS: HGB 7.4 g/dL (11.2-15.7)
[2020-09-06 16:20] LABS: Prothrombin Time 10.3 sec (9.3-11.0)
--- NOTE | 2020-09-06 16:30 | W.ANESPRE ---
General Info Date of Service Date Performed: 09/06/20 Height: 5 ft 3 in Weight: 117.934 kg Body Mass Index (BMI): 46.0 Meds Allergies and Home Medications Allergies Allergy/AdvReac Type Severity Reaction Status Date / Time hazelnut Allergy Itching Verified 09/06/20 14:36 soy Allergy Itching Verified 09/06/20 14:36 Home Medication Medication Instructions Recorded propranolol 10 mg PO TID PRN 07/19/20 bupropion HCl 150 mg 24 hr tablet, 300 mg PO QAM tab 07/23/20 extended release dexmethylphenidate 20 mg 10 mg PO DAILY cap 07/23/20 capsule,extended release [id number] eszopiclone 1 mg tablet 1 mg PO QHS PRN 07/23/20 fluoxetine 40 mg capsule 60 mg PO DAILY cap 07/23/20 levomefolate calcium 7.5 mg tablet 15 mg PO DAILY tab 07/23/20 hydrocortisone 1 applic [place] BID #30 g 08/07/20 silver sulfadiazine [Silvadene] 1 applic TOPICAL BID #20 g 08/28/20 Current Visit Medications: Current Medications Generic Name Dose Route Start Last Admin Trade Name Freq PRN Reason Stop Dose Admin IV Miscellaneous Supplies 1 each 09/06/20 15:30 Iv Access IV DIRECTED RAISSA Sodium Chloride 0 ml 09/06/20 15:17 Normal Saline Flush 10 Ml Syr IVP PRN PRN PFSH Active Problems Active Problems: Problem Status Onset Code Face perez [id number] First degree burn T30.0 Internal hemorrhoids K64.8 Lower GI bleed ~07/2020 K92.2 Acute GI bleeding ~07/2020 K92.2 Anemia ~07/2020 D64.9 Bright red rectal bleeding ~07/2020 K62.5 Medical History Medical History ADHD Anxiety Depression Hx of hemorrhoids Insomnia Surgical History Surgical History H/O esophagogastroduodenoscopy (~07/2020) History of colonoscopy (~07/2020) S/P hemorrhoidectomy (~08/07/20) Tobacco Smoking/Tobacco Use Status: Never Alcohol Alcohol Intake: never Substance Use Substance use: Daily Substance use type: marijuana Vital Signs and Lab Results Vital Signs Most Recent Vital Signs in EMR: Most Recent Vital Signs Temp Pulse Resp BP Pulse Ox 36.6 C 128 H 18 143/41 H 99 09/06/20 15:19 09/06/20 15:19 09/06/20 15:19 09/06/20 15:19 09/06/20 15:19 Lab Results Result Diagrams: 09/06/20 15:09/06/20 15:55 Blood Type / Crossmatch: Patient ABO/Rh O Positive 09/03/20 18:45 09/03/20 Antibody Screen Negative 09/03/20 18:45 09/03/20 Complete Blood Count: White Blood Count 11.36 10^3/uL (4.4-10.8) H 09/06/20 15:55 09/06/20 Red Blood Count 3.13 10^6/uL (3.93-5.22) L 09/06/20 15:55 09/06/20 Hemoglobin 7.4 g/dL (11.2-15.7) L 09/06/20 15:55 09/06/20 Hematocrit 24.3 % (36.0-46.0) L 09/06/20 15:55 09/06/20 Platelet Count 429 10^3/uL (130-400) H 09/06/20 15:55 09/06/20 Complete Metabolic Panel: Sodium Level 143 mmol/L (136-145) 09/06/20 15:55 09/06/20 Potassium Level 4.3 mmol/L (3.5-5.1) 09/06/20 15:55 09/06/20 Chloride Level 105 mmol/L (98-107) 09/06/20 15:55 09/06/20 Carbon Dioxide Level 23.7 mmol/L (21.0-32.0) 09/06/20 15:55 09/06/20 Blood Urea Nitrogen 9 mg/dL (7-18) 09/06/20 15:55 09/06/20 Creatinine 0.8 mg/dL (0.55-1.02) 09/06/20 15:55 09/06/20 Estimated GFR/1.73 m2 >= 60.00 (mL/min/1.73m2) 09/06/20 15:55 09/06/20 Magnesium Level 1.8 mg/dL (1.8-2.4) 09/06/20 15:55 09/06/20 Calcium Level 8.8 mg/dL (8.5-10.1) 09/06/20 15:55 09/06/20 Albumin 3.4 g/dL (3.4-5.0) 09/06/20 15:55 09/06/20 Glucose Level 116 mg/dL (74-106) H 09/06/20 15:55 09/06/20 Liver Function Panel: Alanine Aminotransferase (ALT/SGPT) 45 U/L (14-59) 09/06/20 15:55 09/06/20 Aspartate Amino Transf (AST/SGOT) 54 U/L (15-37) H 09/06/20 15:55 09/06/20 Coagulation Panel: INR International Normalized Ratio 1.0 (0.9-1.1) 09/06/20 15:55 09/06/20 Prothrombin Time 10.3 sec (9.3-11.0) 09/06/20 15:55 09/06/20 Activated Partial Thromboplast Time 22.0 sec (21.0-27.5) 09/06/20 15:55 09/06/20 Cardiac Panel: No Data to Display Arterial Blood Gas: No Data to Display Venous Blood Gas: No Data to Display Pancreas Panel: No Data to Display Thyroid Panel: No Data to Display Infectious Disease: No Data to Display Blood Cultures: No Data to Display Toxicology Panel: No Data to Display Panel: No Data to Display Anesthesia Assessment and Plan Anesthesia History Personal History: No History of General Anesthesia Family History: No Family History of Anesthesia Complications Exercise Tolerance Exercise Tolerance: Metabolic Equivalents>4 Pertinent Negatives Pertinent Negatives: No Symptoms of GERD, No Major Cardiovascular Symptoms or Complaints and No Major Pulmonary Symptoms or Complaints Cardiac & Pulmonary Exam Cardiac Exam: Normal S1/S2 Heart Sounds Pulmonary Exam: Clear Bilateral Breath Sounds Airway Exam Known Difficult Airway: No Mallampati Class: 1 Mouth Opening: Normal (> 3cm) Thyromental Distance: Greater than 3 cm Neck Range of Motion: Full ROM Neck Circumference: Normal Teeth Condition: Normal Dentition ASA Classification ASA Score: ASA 3 Emergency Case?: Yes NPO Status NPO Status: Full Stomach Status Status: Not Per Patient Anesthesia Plan Resuscitation Status: Full Code Anesthesia Technique: Spinal Anesthesia Airway Planned: Natural Airway Monitors Used: Standard Monitors
--- NOTE | 2020-09-06 16:44 | W.PM.HP.N ---
Date of service: 09/06/20 Time of Service: 16:44 Assessment and Plan Assessment and plan (1) Bright red rectal bleeding: Status: Acute Assessment and plan: Rectal exam under anesthesia -Possible hemorrhoidal banding or oversew of bleeding area Risks include but not limited to: Bleeding, infection, pneumonia, blood clots, complications of anesthesia, damage to the sphincters including anal stenosis or loss of control, continued bleeding. Postop she will be admitted in transfused. Further recommendations pending results of exam under anesthesia (2) Anemia: Status: Chronic History of Present Illness Consults Consult date: 09/06/20 Narrative: Patient came to our clinic today for follow-up from rectal bleeding and ER visit on Wednesday night. Her hemoglobin is lower today and she complains of continued rectal bleeding. She is tachycardic, diaphoretic, weak dizzy and nauseous. She will go to the OR for exam under anesthesia. She had a hernia banding 2 weeks ago and is continued to have bleeding ever since then. Her hemoglobin is down to 8.4 from 9.6 on Wednesday today she will be admitted and transfused surgery. Review of Systems All systems reviewed & are unremarkable except as noted in HPI and below PFSH Medical History ADHD Anxiety Depression Hx of hemorrhoids Insomnia Surgical History H/O esophagogastroduodenoscopy (~07/2020) History of colonoscopy (~07/2020) S/P hemorrhoidectomy (~08/07/20) Social History Smoking/Tobacco Use Status: Never Smoking risk assessment performed?: Yes Alcohol Intake: never Drug use: Daily Substance use type: marijuana Current gender identity: female Do you feel safe at home: Yes Do you feel safe in your relationship?: Yes Meds Allergies and Home Medications Allergies Allergy/AdvReac Type Severity Reaction Status Date / Time hazelnut Allergy Itching Verified 09/06/20 14:36 soy Allergy Itching Verified 09/06/20 14:36 Home Medications Medication Instructions Recorded Confirmed Type propranolol 10 mg PO TID PRN 07/19/20 09/06/20 History bupropion HCl 150 mg 24 hr tablet, 300 mg PO QAM tab 07/23/20 09/06/20 History extended release dexmethylphenidate 20 mg 10 mg PO DAILY cap 07/23/20 09/06/20 History capsule,extended release [id number] eszopiclone 1 mg tablet 1 mg PO QHS PRN 07/23/20 09/06/20 History fluoxetine 40 mg capsule 60 mg PO DAILY cap 07/23/20 09/06/20 History levomefolate calcium 7.5 mg tablet 15 mg PO DAILY tab 07/23/20 09/06/20 History hydrocortisone 1 applic [place] BID #30 g 08/07/20 09/06/20 Rx silver sulfadiazine [Silvadene] 1 applic TOPICAL BID #20 g 08/28/20 09/06/20 Rx dibucaine [Nupercainal] 1 applic NH QID #56 g 09/07/20 Rx Exam Resp Effort & Inspection: normal respiratory effort and able to speak in complete sentences Auscultation: clear to auscultation bilaterally Cardio Rate: tachycardic Rhythm: regular rhythm Other: Appears pale and diaphoretic. GI Other: Abdomen is soft and nontender. Bright red blood per rectum. Rectal exam deferred until the OR Extrem Other: Moving all extremities independently Results Labs Result diagrams: 09/06/20 15:55 09/06/20 15:55 Labs: Laboratory Results - last 24 hr 09/06/20 09/06/20 09/06/20 15:55 15:55 15:55 WBC 11.36 H RBC 3.13 L Hgb 7.4 L Hct 24.3 L MCV 77.6 L MCH 23.6 L MCHC 30.5 L RDW 15.9 H Plt Count 429 H MPV 10.8 Immature Gran % 0.7 Neutrophils % 53.1 Lymphocytes % 34.1 Monocytes % 7.2 Eosinophils % 4.4 Basophils % 0.5 Nucleated RBC % 0 Absolute Neutrophils 6.03 Absolute Lymphocytes 3.87 H Absolute Monocytes 0.82 H Absolute Eosinophils 0.50 Absolute Basophils 0.06 PT 10.3 INR 1.0 APTT 22.0 Sodium 143 Potassium 4.3 Chloride 105 Carbon Dioxide 23.7 Anion Gap 14.3 H BUN 9 Creatinine 0.8 Estimated GFR/1.73 m2 >= 60.00 Glucose 116 H Calcium 8.8 Magnesium 1.8 Total Bilirubin 0.3 AST 54 H ALT 45 Alkaline Phosphatase 57 Total Protein 7.3 Albumin 3.4 Patient ABO/Rh Antibody Screen 09/06/20 15:55 WBC RBC Hgb Hct MCV MCH MCHC RDW Plt Count MPV Immature Gran % Neutrophils % Lymphocytes % Monocytes % Eosinophils % Basophils % Nucleated RBC % Absolute Neutrophils Absolute Lymphocytes Absolute Monocytes Absolute Eosinophils Absolute Basophils PT INR APTT Sodium Potassium Chloride Carbon Dioxide Anion Gap BUN Creatinine Estimated GFR/1.73 m2 Glucose Calcium Magnesium Total Bilirubin AST ALT Alkaline Phosphatase Total Protein Albumin Patient ABO/Rh O Positive Antibody Screen Negative Last Vital Signs Temp 36.6 C 09/06/20 15:19 Pulse 128 H 09/06/20 15:19 Resp 18 09/06/20 15:19 BP 143/41 H 09/06/20 15:19 Pulse Ox 99 09/06/20 15:19
[2020-09-06 16:58] LABS: Source Nasal/Nares
[2020-09-06] MEDS: Lactated Ringers 1,000 ML 100 ML IV ×2 (17:27→20:14)
[2020-09-06 17:48] LABS: COVID-19 PCR Negative (Negative)
--- NOTE | 2020-09-06 18:45 | W.ANESPOSTOP ---
Postoperative Evaluation Date, Time and Location Date Performed: 09/06/20 Time Performed: 18:45 Patient Location: Med/Surg Vital Signs Most Recent Imported Vital Signs: Most Recent Vital Signs Temp Pulse Resp BP Pulse Ox 36.6 C 128 H 18 143/41 H 99 09/06/20 15:19 09/06/20 15:19 09/06/20 15:19 09/06/20 15:19 09/06/20 15:19 Most Recent Manually Entered Vital Signs: Adult Blood Pressure: 115/62 Heart Rate: 111 Respirations: 16 Oxygen Saturation (%): 100 Temperature (C): 36.6 C Pain Score (0-10 Scale): 0 Pain Score Most Recent Pain Score: Most Recent Pain Score Pain Level 6 09/06/20 15:19 Assessment Mental Status: Awake (Alert & Oriented to Patient Baseline) Airway and Respiratory Function: Patent airway with normal (patient baseline) respiratory exam Cardiovascular Function: Hemodynamically Stable Hydration Status: Adequately Hydrated Nausea & Vomiting: No Nausea or Vomiting Pain: Pt. Denies Any Pain Peripheral Nerve Block: Patient did not receive a nerve block
--- NOTE | 2020-09-06 18:50 | W.PM.OP ---
Date of service: 09/06/20 Time of Service: 18:51 Operative Note Operative Note DATE OF PROCEDURE: 09/06/20 PRE-OP DIAGNOSIS: acute rectal bleeding POST-OP DIAGNOSIS: other (Arterial hemorrhage from anus) PROCEDURE: Oversew of bleeder x1 SURGEON: Priyanka Douglas ANESTHESIA TYPE: Local By Surgeon Refer to Anesthesia Record sadal block ESTIMATED BLOOD LOSS: 3 PATHOLOGY: none sent COMPLICATIONS: None Patient was transported to: floor Patient's condition: stable Procedure Description: Sarahi Reid is a 24-year-old female that is well-known to me. She has a history of rectal bleeding. She underwent hemorrhoid banding 2 weeks ago. She presents to the office today with continued arterial bleeding and a hemoglobin of 7.4. I had seen her in the ER on 09/03 with a hgb 8.4. I attempted to do a rectal exam in the ER but she had too much pain and did not tolerate it well. There is no signs of bleeding at that time. In the last 48 hours she is dropped another gram of hemoglobin. She is been taken to the OR, for exam under anesthesia and possible oversew of a bleeder versus hemorrhoid banding. Informed consent is obtained explaining risks and benefits of procedure including but not limited to: Bleeding, infection, pneumonia, blood clots, complications of anesthesia, damage to sphincters including stenosis or loss of control, recurrence, or no etiology for bleeding found. Saddle block is placed by anethesia. The perineum is prepped adn drapped in the usual sterile l manner. Pt is placed into stirrups. A Butler catheter was placed. VAginal speculum exam is performed. There is is some yellowish- discharge, and cultured for GC was done. Otherwise there is no redness/swelling and appears normal. There are no signs of bleeding. The exam is essentially normal. AREN is performed. 10cc of .5%Marcaine w/ epi is used for local anesthesia. There are some ext. anal tags. Speculum exam is done- At the margin, and at the 6oclock position, there is a small arteriole bleeder. This is over-sewn w/ 3-0 vicryl. This is not assoc w/ any fissures/hemorrhoids, etc. The sourrounding mucosa is normal. There are no fissures. THere are no other I. hemorrhoids. Bleeding has ceased. Gel is placed in the rectum to aid w/ hemostasis. Pt tolerated the procedure and transferred to the PACU. She will be transfused, and monitorred overnight; hopefully d/c'ed in am.
[2020-09-06] MEDS: Gelatin SPONGE 12-7 MM PKT 1 EACH TP (18:56)
[2020-09-06] MEDS: Acetaminophen 500 MG TAB 1000 MG PO (19:36)
[2020-09-06] MEDS: Sennosides/Docusate Sodium TAB 1 TAB PO (19:36)
[2020-09-06] MEDS: MORPHine 2 MG/ML SYR IVP ×2 (21:23→23:36)
[2020-09-07] VITALS (8 sets, daily range): BP systolic 100–139; BP diastolic 63–82; PULSE 73–94; RESP 18–20; TEMP 35.9–36.4; O2SAT 97–100
[2020-09-07] MEDS: diphenhydrAMINE 25 MG CAP PO (00:57)
[2020-09-07] MEDS: Ketorolac 30 MG/ML VIAL IVP (01:24)
[2020-09-07] MEDS: Normal Saline Flush 10 ML SYR IVP (01:25)
[2020-09-07] MEDS: oxyCODONE 5 MG TAB PO ×3 (01:25→14:37)
[2020-09-07] MEDS: Acetaminophen 500 MG TAB 1000 MG PO ×3 (01:26→14:37)
[2020-09-07] MEDS: Sennosides/Docusate Sodium TAB 1 TAB PO (08:04)
--- NOTE | 2020-09-07 12:16 | W.PM.PROGNOT ---
Date of Service Date of service: 09/07/20 Time of Service: 12:16 Objective Last Vital Signs Temp 97.5 F L 09/07/20 07:50 Pulse 84 09/07/20 07:50 Resp 18 09/07/20 07:50 BP 114/63 09/07/20 07:50 Pulse Ox 97 09/07/20 07:50 Laboratory Results - last 24 hr 09/06/20 09/06/20 09/06/20 15:55 15:55 15:55 WBC 11.36 H RBC 3.13 L Hgb 7.4 L Hct 24.3 L MCV 77.6 L MCH 23.6 L MCHC 30.5 L RDW 15.9 H Plt Count 429 H MPV 10.8 Immature Gran % 0.7 Neutrophils % 53.1 Lymphocytes % 34.1 Monocytes % 7.2 Eosinophils % 4.4 Basophils % 0.5 Nucleated RBC % 0 Absolute Neutrophils 6.03 Absolute Lymphocytes 3.87 H Absolute Monocytes 0.82 H Absolute Eosinophils 0.50 Absolute Basophils 0.06 PT 10.3 INR 1.0 APTT 22.0 Sodium 143 Potassium 4.3 Chloride 105 Carbon Dioxide 23.7 Anion Gap 14.3 H BUN 9 Creatinine 0.8 Estimated GFR/1.73 m2 >= 60.00 Glucose 116 H Calcium 8.8 Magnesium 1.8 Total Bilirubin 0.3 AST 54 H ALT 45 Alkaline Phosphatase 57 Total Protein 7.3 Albumin 3.4 Chlamydia/GC Source Chlamydia DNA Probe COVID-19 Source SARS-CoV-2 (PCR) N.gonorrhoeae DNA Probe Patient ABO/Rh Antibody Screen Crossmatch 09/06/20 09/06/20 09/06/20 15:55 16:51 18:30 WBC RBC Hgb Hct MCV MCH MCHC RDW Plt Count MPV Immature Gran % Neutrophils % Lymphocytes % Monocytes % Eosinophils % Basophils % Nucleated RBC % Absolute Neutrophils Absolute Lymphocytes Absolute Monocytes Absolute Eosinophils Absolute Basophils PT INR APTT Sodium Potassium Chloride Carbon Dioxide Anion Gap BUN Creatinine Estimated GFR/1.73 m2 Glucose Calcium Magnesium Total Bilirubin AST ALT Alkaline Phosphatase Total Protein Albumin Chlamydia/GC Source Cancelled Chlamydia DNA Probe Cancelled COVID-19 Source Nasal/nares SARS-CoV-2 (PCR) Negative N.gonorrhoeae DNA Probe Cancelled Patient ABO/Rh O Positive Antibody Screen Negative Crossmatch See Detail
--- NOTE | 2020-09-07 12:17 | DSE_ITS ---
Date of service: 09/07/20 Time of Service: 12:17 DS: Diagnosis Discharge Diagnosis (1) Bright red rectal bleeding: Status: Acute Asessment and Plan: Pt admitted with bright red bleeding per rectum, and underwent rectal EUA with oversewing of involved vessel. She has been stable post-operatively, and feels well, with no further bleeding. discharge home with recommendations for stool softeners/laxatives, topical anesthetic, sitz baths, and soft diet (2) Anemia: Status: Chronic Asessment and Plan: s/p transfusion Discharge Plan Disposition Patient Disposition: HOME Condition: Stable Discharge Details Reason For Visit: rectal bleeding/anemia Admit Date/Time: 09/06/20 17:15 Admit Provider: Priyanka Douglas Attending Provider: Priyanka Douglas Primary Care Provider: Nieves,[facility] Course Hospital Course: This is a 24-year-old female, known to Dr. Douglas for rectal bleeding. She underwent hemorrhoid banding 2 weeks ago. She presented to the office on 09/06 with continued arterial bleeding and a hemoglobin of 7.4. I had seen her in the ER on 09/03 with a hgb 8.4. I attempted to do a rectal exam in the ER but she had too much pain and did not tolerate it well. There were no signs of bleeding at that time. In the 48 hours prior to admission, her hemoglobin decreased another point. On 09/06, she was taken to the OR, for exam under anesthesia and p ossible oversew of a bleeder versus hemorrhoid banding. In the operating room, she underwent a saddle block placed by lucy. A vaginal speculum exam revealed some yellowish- discharge, and cultured for GC was done. Otherwise there was no redness/swelling and appears normal. There are no signs of bleeding. The exam is essentially normal. On rectal exam, a AREN was performed. There were are some ext. anal tags. Speculum exam showed at the margin, and at the 6oclock position, there is a small arteriole bleeder. This was over-sewn, and there were no other active finding, and a gelfoam was placed in the rectum to aid w/ hemostasis. Overnight, she received 1U PRBC. She was uncomfortable last night complaining of ramin-rectal pain, once the block wore off, and received narcotic medication. She was much more comfortable this morning. She does not believe she has passed the gelfoam, and has not seen any further bleeding. She is voiding well, and is tolerating a diet. She feels okay to go home. Home Meds and New Rx's Prescriptions: New dibucaine [Nupercainal] 1 % Ointment 1 applic [place] QID Qty: 56 RF: 0 Continued eszopiclone [Lunesta] 1 mg tablet 1 mg PO QHS PRNRF: 0 silver sulfadiazine [Silvadene] 1 % cream 1 applic topical BID Qty: 20 RF: 0 propranolol 10 mg Tablet 10 mg PO TID PRN (Reason: Anxiety) RF: 0 bupropion HCl [Wellbutrin XL] 150 mg tablet extended release 24 hr 300 mg PO QAM RF: 0 dexmethylphenidate [Focalin XR] 20 mg capsule,ER biphasic 50-50 10 mg PO DAILY RF: 0 fluoxetine [Prozac] 40 mg capsule 60 mg PO DAILY RF: 0 levomefolate calcium 7.5 mg tablet 15 mg PO DAILY RF: 0 hydrocortisone 2.5 % cream with perineal applicator 1 applic OK BID Qty: 30 RF: 1 Discharge Instructions Instructions: Hemorrhoids (DC), Acute Posthemorrhagic Anemia (DC) Additional Instructions: Recommend taking [id number] stool softeners/mild laxatives, eg. Colace, Senna, Milk of Magnesia, Miralax. Drink plenty of non-sugary, clear fluids. Frequent sitz baths for comfort. Call/return to ED if you experience significant further bleeding, dizziness, shortness of breath, etc. Activity:: Activity as Tolerated Equipment/Supplies:: No Equipment Needed Diet:: soft foods DS: Summary Time Spent with Patient providing and/or coordinating discharge services: Less than 30 minutes Status at Discharge Functional status at discharge: independent ambulation Overall status at discharge: patient is not back to baseline Mental Status: mental status grossly normal Speech and Movement: speech and movement normal Mood: congruent mood Affect: normal affect Exam Const General: cooperative, healthy appearing, comfortable and no acute distress Nutritional Appearance: obese Resp Effort & Inspection: normal respiratory effort and able to speak in complete sentences Auscultation: clear to auscultation bilaterally Cardio Rate: regular rate Rhythm: regular rhythm Heart Sounds: S1 normal and S2 normal GI Inspection: obesity Palpation: soft, not firm and not rigid Rectal Exam - female: No fissure and other (+skin tags, no blood seen at verge; AREN not performed for patient comfort) Skin General skin exam: no rashes or lesions noted Neuro General: patient alert, patient awake and patient oriented x3 Cognition: normal cognition Psych Appearance: grossly normal Mental Status: mental status grossly normal Speech and Movement: speech and movement normal Mood: congruent mood Affect: normal affect Attitude: cooperative Thought Content: normal DS: Data Vitals/I&O Vitals and I&O: Vital Signs Temperature 97.5 F L 09/07/20 07:50 Temperature Source Tympanic 09/07/20 07:50 Pulse 84 09/07/20 07:50 Pulse Rhythm Regular 09/07/20 07:50 Respiratory Rate 18 09/07/20 07:50 Respiratory Effort Non-Labored 09/07/20 07:50 Respiratory Depth Normal 09/07/20 07:50 Respiratory Pattern Normal 09/07/20 07:50 Blood Pressure 114/63 09/07/20 07:50 Blood Pressure Position Supine 09/06/20 15:19 Pulse Oximetry 97 09/07/20 07:50 Oxygen Delivery Method Room Air 09/07/20 07:50 Oxygen Flow Rate 0 09/07/20 07:50 Pain Level 7 09/07/20 11:08 Comment 09/06/20 18:40 Intake & Output 09/06/20 09/07/20 09/07/20 23:59 11:59 23:59 Intake Total 1016.666 / 1016.666 983 / 983 Output Total 50 / 50 Balance 966.666 / 966.666 983 / 983 Weight 117.934 kg Intake: IV 1016.666 / 1016.666 Oral 400 / 400 Blood Product 503 / 503 Rbc Leuko Reduced Unit 253 / 253 [id number] Rbc Leuko Reduced Unit 250 / 250 [id number] Other 60 / 60 Rbc Leuko Reduced Unit 30 / 30 [id number] Rbc Leuko Reduced Unit 30 / 30 [id number] Output: Urine 50 / 50 Other: Urine Color Yellow Yellow Urine Appearance Clear Clear Urine Odor Normal Emesis Description None Voiding Methods Toilet Data Completed and Pending Labs on day of discharge: Labs from last 24 hours 09/06/20 09/06/20 09/06/20 18:30 18:30 16:51 WBC RBC Hgb Hct MCV MCH MCHC RDW Plt Count MPV Immature Gran % Neutrophils % Lymphocytes % Monocytes % Eosinophils % Basophils % Nucleated RBC % Absolute Neutrophils Absolute Lymphocytes Absolute Monocytes Absolute Eosinophils Absolute Basophils PT INR APTT Sodium Potassium Chloride Carbon Dioxide Anion Gap BUN Creatinine Estimated GFR/1.73 m2 Glucose Calcium Magnesium Total Bilirubin AST ALT Alkaline Phosphatase Total Protein Albumin Chlamydia/GC Source Cancelled Chlamydia DNA Probe Pending Cancelled Chlamydia/GC DNA Source Pending COVID-19 Source Nasal/nares SARS-CoV-2 (PCR) Negative N.gonorrhoeae DNA Probe Pending Cancelled Patient ABO/Rh Antibody Screen Crossmatch 09/06/20 09/06/20 09/06/20 15:55 15:55 15:55 WBC 11.36 H RBC 3.13 L Hgb 7.4 L Hct 24.3 L MCV 77.6 L MCH 23.6 L MCHC 30.5 L RDW 15.9 H Plt Count 429 H MPV 10.8 Immature Gran % 0.7 Neutrophils % 53.1 Lymphocytes % 34.1 Monocytes % 7.2 Eosinophils % 4.4 Basophils % 0.5 Nucleated RBC % 0 Absolute Neutrophils 6.03 Absolute Lymphocytes 3.87 H Absolute Monocytes 0.82 H Absolute Eosinophils 0.50 Absolute Basophils 0.06 PT 10.3 INR 1.0 APTT 22.0 Sodium Potassium Chloride Carbon Dioxide Anion Gap BUN Creatinine Estimated GFR/1.73 m2 Glucose Calcium Magnesium Total Bilirubin AST ALT Alkaline Phosphatase Total Protein Albumin Chlamydia/GC Source Chlamydia DNA Probe Chlamydia/GC DNA Source COVID-19 Source SARS-CoV-2 (PCR) N.gonorrhoeae DNA Probe Patient ABO/Rh O Positive Antibody Screen Negative Crossmatch See Detail 09/06/20 15:55 WBC RBC Hgb Hct MCV MCH MCHC RDW Plt Count MPV Immature Gran % Neutrophils % Lymphocytes % Monocytes % Eosinophils % Basophils % Nucleated RBC % Absolute Neutrophils Absolute Lymphocytes Absolute Monocytes Absolute Eosinophils Absolute Basophils PT INR APTT Sodium 143 Potassium 4.3 Chloride 105 Carbon Dioxide 23.7 Anion Gap 14.3 H BUN 9 Creatinine 0.8 Estimated GFR/1.73 m2 >= 60.00 Glucose 116 H Calcium 8.8 Magnesium 1.8 Total Bilirubin 0.3 AST 54 H ALT 45 Alkaline Phosphatase 57 Total Protein 7.3 Albumin 3.4 Chlamydia/GC Source Chlamydia DNA Probe Chlamydia/GC DNA Source COVID-19 Source SARS-CoV-2 (PCR) N.gonorrhoeae DNA Probe Patient ABO/Rh Antibody Screen [facility] Medical History ADHD Anxiety Depression Hx of hemorrhoids Insomnia Surgical History H/O esophagogastroduodenoscopy (~07/2020) History of colonoscopy (~07/2020) S/P hemorrhoidectomy (~08/07/20) Social History Smoking/Tobacco Use Status: Never Smoking risk assessment performed?: Yes Alcohol Intake: never Drug use: Daily Substance use type: marijuana Current gender identity: female Do you feel safe at home: Yes Do you feel safe in your relationship?: Yes
[2020-09-09 15:12] LABS: Chlamydia Result Negative (Negative); GC Result Negative (Negative)
== END 2020-09-07 15:34 | disposition home or self-care (01) | DRG 349 ==
LOC: ER 17:57 → MS 18:45
PROVIDERS: Admitting Provider Surgery; Emergency Provider Emergency Medicine; Visit Provider Surgery
PROC: 0W3P7ZZ Control Bleeding in Gastrointestinal Tract, Via Natural or Artificial Opening (ICD-10-PCS; CPT 46614; principal; 2020-09-06 17:15)
DX: K62.5 Hemorrhage of anus and rectum (principal); F41.9 Anxiety disorder, unspecified; F32.9 Major depressive disorder, single episode, unspecified; G47.00 Insomnia, unspecified; F90.9 Attention-deficit hyperactivity disorder, unspecified type; D64.9 Anemia, unspecified; Z20.822 Contact with and (suspected) exposure to COVID-19
CPT/HCPCS: 46614; 36430; 80053; 81025; 86850; 86900; 86901; 86920; 87491; 87591; 87635; 99285; 83735; 85025; 85610; 85730; 87480; 87510; 87660; 99284; J1885; J2250; J2270; J2405; P9016

== ENCOUNTER 2020-09-11 14:28 | Inpatient (IN) | payer OTHER, SELFPAY ==
[2020-09-11] VITALS (13 sets, daily range): BP systolic 104–141; BP diastolic 53–80; PULSE 70–87; RESP 16–27; TEMP 36.1–36.8; O2SAT 97–100; BMI 46.4
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
[2020-09-11] MEDS: Lactated Ringers 1,000 ML 100 ML IV ×2 (11:55→14:26)
[2020-09-11] MEDS: Normal Saline Flush 10 ML SYR IV ×3 (12:00→20:42)
--- NOTE | 2020-09-11 12:04 | HPE_ITS ---
Date of service: 09/11/20 Time of Service: 12:04 Assessment and Plan Assessment and plan (1) Rectal/anal hemorrhage: Status: Acute Assessment and plan: Patient is being taken back for exam under anesthesia and possible oversew and biopsy today. We will draw lab work and serial hemoglobin and iron status is. She did not get transfused 09/06. She had no problems with anesthesia with her last surgery. She has not had anything to eat or drink today. I reviewed with risks with her as stated in the HPI. We will look for inflammatory bowel disease and bleeding diathesis. Further recommendations based on findings at the time of surgery. (2) Bright red rectal bleeding: Status: Acute (3) Anemia: Status: Chronic History of Present Illness Narrative: Patient is well-known to me surgical staff. She has had problems with rectal bleeding for over a month. She has had a colonoscopy and EGD that was normal. She had a hemorrhoid banding 2 weeks ago. Last Wednesday, September 06 she came in with bleeding. I did exam under anesthesia. She had an arterial pumper at the anal margin. I placed a stitch in there. She had no bleeding for 24 h ours. She received 2 units of blood. She did fine over the weekend. Today she noted increased and severe rectal pain, 7 out of 10. And she started having bright red blood per rectum again. She has no fever, chills, dizziness, shortness of breath or feeling like she is going to pass out. No chest pain. She is vaccinated for Covid. I attempted to do an exam in the office and it was too painful for her. There is no signs of active bleeding at that point. Today she is being brought to the OR for exam under anesthesia and possible oversew of area very T serial hemorrhage. We have not done any biopsies of rectum and we should probably do this as well. She denies any family history of Crohn's or inflammatory bowel disease. She is does not have diarrhea. She denies straining to move her bowels. There is no family history of bleeding problems that she is aware of. She is taking a moderate amount of NSAIDs for pain control she does not drink alcohol to excess. Medications are reviewed. She stopped using the hydrocortisone cream. Risks of surgery include but not limited to: Bleeding, infection, damage to the sphincters (which could result in loss of control of her bowels), anal stenosis, recurrence, and complications of anesthesia. Review of Systems All systems reviewed & are unremarkable except as noted in HPI and below PFSH Medical History (Updated 09/11/20 @ 12:48 by Priyanka Douglas DO) ADHD Anxiety Depression Hx of hemorrhoids Insomnia Surgical History H/O esophagogastroduodenoscopy (~07/2020) History of colonoscopy (~07/2020) S/P hemorrhoidectomy (~08/07/20) Social History Smoking/Tobacco Use Status: Former Tobacco Use (Quit 1.5 years ago) Smoking risk assessment performed?: Yes Alcohol Intake: never Drug use: Daily Substance use type: marijuana (Everyday smoker) Current gender identity: female Do you feel safe at home: Yes Do you feel safe in your relationship?: Yes Meds Allergies and Home Medications Allergies Allergy/AdvReac Type Severity Reaction Status Date / Time hazelnut Allergy Itching Verified 09/11/20 11:04 soy Allergy Itching Verified 09/11/20 11:04 Home Medications Medication Instructions Recorded Confirmed Type propranolol 10 mg PO TID PRN 07/19/20 09/11/20 History bupropion HCl 150 mg 24 hr tablet, 300 mg PO QAM tab 07/23/20 09/11/20 History extended release dexmethylphenidate 20 mg 10 mg PO DAILY cap 07/23/20 09/11/20 History capsule,extended release [id number] eszopiclone 1 mg tablet 1 mg PO QHS PRN 07/23/20 09/11/20 History fluoxetine 40 mg capsule 60 mg PO DAILY cap 07/23/20 09/11/20 History levomefolate calcium 7.5 mg tablet 15 mg PO DAILY tab 07/23/20 09/11/20 History hydrocortisone 1 applic IA BID #30 g 08/07/20 09/11/20 Rx silver sulfadiazine [Silvadene] 1 applic TOPICAL BID #20 g 08/28/20 09/11/20 Rx dibucaine [Nupercainal] 1 applic IA QID #56 g 09/07/20 09/11/20 Rx Exam Narrative Exam Narrative: GENERAL APPEARANCE: Alert, healthy appearance, oriented, in no acute distress HYDRATION: Well hydrated HEAD, EYES, EARS, NECK, and Throat: Head is normocephalic, pupils equal, round, reactive to light and accommodation, ocular movement intact, sclera clear and no jaundice. Dentition intact. LUNGS: normal respiration, clear to auscultation HEART: Regular rate and rhythm, normal heart sounds, EXTREMITY: No edema or cyanosis, ABDOMEN: soft and non-tender today NEURO: CN: Intact. Results Labs Result diagrams: 09/11/20 11:52 Last Vital Signs Temp 36.3 C L 09/11/20 11:00 Pulse 83 09/11/20 11:00 Resp 18 09/11/20 11:00 BP 133/75 09/11/20 11:00 Pulse Ox 99 09/11/20 11:00
[2020-09-11 12:13] LABS: Abs Immature Grans 0.05 10^3/uL (0.0-0.06); Absolute Basophil Count 0.07 10^3/uL (0.0-0.2); Absolute Eosinophil Count 0.52 10^3/uL (0.0-0.7); Absolute Lymphocyte Count 3.12 10^3/uL (1.2-3.4); Absolute Monocyte Count 0.78 10^3/uL (0.1-0.8); Absolute Neutrophil Count 6.81 10^3/uL (1.2-6.7); Basophils % 0.6; Eosinophils % 4.6; HCT 30.1 % (36.0-46.0); HGB 9.1 g/dL (11.2-15.7); Immature Grans % 0.4; Lymphocytes % 27.5; MCH 24.5 pg (27.0-33.0); MCHC 30.2 % (32.0-36.0); MCV 80.9 fL (80-95); MPV 10.3 fL (8.0-11.0); Monocytes % 6.9; Nucleated RBC 0 %; Platelet Count 371 10^3/uL (130-400); RBC 3.72 10^6/uL (3.93-5.22); RDW 15.6 % (11.7-14.6); RDW-SD 45.8 fL; WBC 11.35 10^3/uL (4.4-10.8)
[2020-09-11 12:55] LABS: C-Reactive Protein 1.18 mg/dL (0.0-0.3)
[2020-09-11 12:56] LABS: Iron 14 ug/dL (50-170); Total Iron Binding Capacity 446 ug/dL (250-450); Transferrin Sat 3 % (15-50)
--- NOTE | 2020-09-11 13:35 | BOWEL_PTH ---
PATIENT: Sinai Clement LOC: OBS U#:[id number] AGE/SX: 24/F ROOM: OBS.306 RE09/11/[address]: Priyanka Douglas : 1995 BED: A DIS: 09/12/2020 SPEC #: [id number] RECD: 09/11/20 17:50 STATUS: VIK REQ #: [id number] СВЕТЛАНА: 09/11/20 13:[address]: Priyanka Douglas DEPT: Surgical Specimen RECD BY: Natalya Tomlin ENTERED: 09/11/20 17:50 SP TYPE: Bowel OTHR DR: No Local Tissues: 1 - BIOPSY BOWEL Procedures: GROSS AND MICRO LEVEL 4 Comments: [id number]
[2020-09-11] MEDS: Gelatin SPONGE 12-7 MM PKT 1 EACH TP ×4 (13:53→14:15)
--- NOTE | 2020-09-11 14:31 | ROE_ITS ---
Date of service: 09/11/20 Time of Service: 14:32 Operative Note Operative Note DATE OF PROCEDURE: 09/11/20 PRE-OP DIAGNOSIS: rfectal bleeding SURGEON: Priyanka Douglas LAMINATING MACHINE FEEDER: Natty Amaral ANESTHESIA TYPE: Local By Surgeon and Epidural Refer to Anesthesia Record ESTIMATED BLOOD LOSS: 25 Patient was transported to: PACU Patient's condition: stable Procedure Description: Sarahi is a 24-year-old female well-known to the service. She has had multiple episodes of bleeding. She underwent a hemorrhoidal banding 3 weeks ago. Last Wednesday on she presented with arterial bleeding and was found to have a small arterial puncture that was oversewn. She presents to the clinic today with continued arterial bleeding and could not tolerate exam in the office. She is being taken to the OR for exam under anesthesia. Informed consent is obtained explaining risks and benefits procedure including not limited to bleeding infection scarring recurrence damage to sphincters resulting in stenosis or loss of control and possible need for further blood. Patient brought to the operative room suite. Spinal anesthetic is administered per the part of anesthesia. Patient is placed in the lithotomy stirrups. She is prepped and draped in the usual sterile fashion using a Betadine scrub solution. Does not require antibiotics. Timeout is performed. She again is having active arterial hemorrhage at this point.. The previous lubricated Aguilar retractors placed in the rectum. The area that was oversewn last Wednesday has ulcerated/broken down and is actively bleeding. There is absolutely nothing abnormal in this area. There is no signs of Crohn's disease. Is not associated with a hemorrhoid. It is an open area of arterial bleeding. The old suture and the area of the tear is excised and This is sent for biopsy. It was then ove rsewn with a 3-0 Vicryl in running fashion. She has minimal bleeding except for a suture hole puncture site following closure. She did receive TXA. I did place dibucaine soaked Gelfoam in the rectum. She was admitted overnight for observation for continued bleeding. Patient tolerated procedure well without complication and transferred to cover room in stable condition.
--- NOTE | 2020-09-11 15:00 | NUR.NOTE ---
Nursing Note: pt arrived to center floor via stretcher at 1450. Pt able to stand and has full motor strength. 18g IV in right hand with LR running, second IV in right AC 20g saline lock. Pt transferred to bed in room 306. POC is observation for rectal bleeding and pain control. Pt to stay overnight and DC in AM.
--- NOTE | 2020-09-11 15:18 | W.ANESPOSTOP ---
Postoperative Evaluation Date, Time and Location Date Performed: 09/11/20 Time Performed: 15:18 Patient Location: Obstetrics Vital Signs Most Recent Imported Vital Signs: Most Recent Vital Signs Temp Pulse Resp BP Pulse Ox 36.8 C 74 16 110/60 97 09/11/20 15:04 09/11/20 15:14 09/11/20 15:14 09/11/20 15:04 09/11/20 15:14 Pain Score Most Recent Pain Score: Most Recent Pain Score Pain Level 0 09/11/20 14:43 Assessment Mental Status: Awake (Alert & Oriented to Patient Baseline) Airway and Respiratory Function: Patent airway with normal (patient baseline) respiratory exam Cardiovascular Function: Hemodynamically Stable Hydration Status: Adequately Hydrated Nausea & Vomiting: No Nausea or Vomiting Pain: Pt. Denies Any Pain Peripheral Nerve Block: Patient did not receive a nerve block
[2020-09-11] MEDS: Acetaminophen 500 MG TAB 1000 MG PO ×2 (16:05→22:33)
[2020-09-11] MEDS: HYDROmorphone 2 MG/ML VIAL 0.5 MG IVP ×2 (16:41→20:41)
--- NOTE | 2020-09-11 16:56 | NUR.NOTE ---
Dr. Douglas placed call to Center regarding pt pain level. Suggested warm bath as viable method of pain control at this time. Provider states warm water with no additives, may see blood and some rectal packing in water which is fine. Message passed to primary RN and plan to proceed with these comfort measures. Nursing Note:
[2020-09-11] MEDS: oxyCODONE 5 MG TAB PO ×2 (19:17→23:42)
[2020-09-11] MEDS: Dibucaine 1% 28 GM TUBE TP (19:18)
[2020-09-12] MEDS: HYDROmorphone 2 MG/ML VIAL 0.5 MG IVP ×3 (01:00→09:35)
[2020-09-12] MEDS: Normal Saline Flush 10 ML SYR IV ×2 (01:00→05:07)
[2020-09-12] MEDS: oxyCODONE 5 MG TAB PO ×2 (04:23→08:56)
[2020-09-12] MEDS: Acetaminophen 500 MG TAB 1000 MG PO ×2 (04:23→11:17)
[2020-09-12 04:55] VITALS: BP 111/57; PULSE 81; RESP 16; TEMP 36.8; O2SAT 100
[2020-09-12 08:35] VITALS: PULSE 88; RESP 16; O2SAT 99
[2020-09-12 08:37] VITALS: BP 110/65; PULSE 90; RESP 16; TEMP 36.7; O2SAT 99
[2020-09-12] MEDS: diphenhydrAMINE 25 MG CAP PO (08:46)
[2020-09-12] MEDS: Bisacodyl 5 MG TABEC PO (08:51)
[2020-09-12 09:00] LABS: HGB 8.2 g/dL (11.2-15.7)
--- NOTE | 2020-09-12 09:34 | DSE_ITS ---
Date of service: 09/12/20 Time of Service: 09:49 DS: Diagnosis Discharge Diagnosis (1) Rectal/anal hemorrhage: Status: Acute (2) Bright red rectal bleeding: Status: Acute (3) Anemia: Status: Chronic Discharge Plan Disposition Patient Disposition: HOME Condition: Improving Discharge Details Reason For Visit: EUA Admit Date/Time: 09/11/20 14:28 Admit Provider: Priyanka Douglas Attending Provider: Priyanka Douglas [facility] Course: Patient was seen in clinic and was continuing to have bright red rectal bleeding. She is taken for exam under anesthesia and reexcision of the bleeding site. Please see the operative report for details of the procedure. Postoperatively she was admitted overnight for pain control and monitoring of bleeding. She had no significant bleeding overnight. She will receive letter for today and be discharged home and follow-up in clinic. She is given instructions in wound care, activity, and warning signs. If she experiences heavy bleeding, she should return to the ED. Patient understood all and discharged in stable and satisfactory condition Home Meds and New Rx's Prescriptions: New dibucaine 1 % ointment 1 applic topical QID Qty: 30 RF: 12 bisacodyl [Dulcolax (bisacodyl)] 5 mg tablet,delayed release (DR/EC) 5 mg PO DAILY Qty: 60 RF: 6 oxycodone 5 mg capsule 5 mg PO Q4H PRN (Reason: pain (scale score 7-10)) Qty: 14 RF: 0 Continued eszopiclone [Lunesta] 1 mg tablet 1 mg PO QHS PRNRF: 0 silver sulfadiazine [Silvadene] 1 % cream 1 applic topical BID Qty: 20 RF: 0 propranolol 10 mg Tablet 10 mg PO TID PRN (Reason: Anxiety) RF: 0 bupropion HCl [Wellbutrin XL] 150 mg tablet extended release 24 hr 300 mg PO QAM RF: 0 dexmethylphenidate [Focalin XR] 20 mg capsule,ER biphasic 50-50 10 mg PO DAILY RF: 0 fluoxetine [Prozac] 40 mg capsule 60 mg PO DAILY RF: 0 levomefolate calcium 7.5 mg tablet 15 mg PO DAILY RF: 0 hydrocortisone 2.5 % cream with perineal applicator [address] BID Qty: 30 RF: 1 dibucaine [Nupercainal] 1 % Ointment [address] QID Qty: 56 RF: 0 Discharge Instructions Additional Instructions: Home Care Instructions after Rectal Surgery Pain control: Tylenol 1000mg by mouth every 8 hours. Do not take Tylenol if you have hepatitis or liver failure. Take pain meds continuously for the first 72hrs. After 72hrs, you can take as needed if you are having pain. you also have topical dibucaine cream to numb the area. For pain > 7, you do have oxycodone. Try to use minimal of these- as they will cause extreme constipation. How to prevent constipation: The first bowel movement after surgery will be painful. Do not let yourself get constipated. Stay on a stool softener for the first two weeks after surgery. If you do not have a bowel movement daily, use Milk of Magnesia or Miralax. You may have bleeding or drainage after rectal surgery; especially when you move your bowels. Use a sanitary napkin to collect the discharge. If you are passing large clots or having to change the pad more than every 4 hours, call the clinic or go to the ER. You do have suture material in place. The should dissolve and fall out in about 10 to 14 days. You may experience spasms in the rectal muscles. This is normal after surgery and last for about two weeks. They can become more intense with bowel movements. The best remedy is to soak in a bathtub of plain warm water- no Epsom salts, essential oil or soap. It takes about 10 minutes for a spasm to stop. You may want to do this after BM as well. It is ok to shower. Avoid soap on the surgical area. Use a pillow to sit on. Follow a mild bland diet. Avoid alcohol, spicy food, citrus, and tomatoes. Avoid strenuous activity (running, jogging, and power walking, swimming, weight lifting) for two weeks. No lifting over 20 pounds for 2 weeks. F/u w/ Dr. Douglas or Esme in 2 wks time. Activity:: see above Equipment/Supplies:: No Equipment Needed Diet:: see above DS: Summary Time Spent with Patient providing and/or coordinating discharge services: Less than 30 minutes Status at Discharge Functional status at discharge: independent ambulation Overall status at discharge: patient is progressing back to baseline Mental Status: mental status grossly normal Speech and Movement: speech and movement normal Mood: congruent mood Affect: normal affect Exam Psych Mental Status: mental status grossly normal Speech and Movement: speech and movement normal Mood: congruent mood Affect: normal affect DS: Data Vitals/I&O Vitals and I&O: Vital Signs Temperature 36.7 C 09/12/20 08:37 Temperature Source Oral 09/12/20 08:37 Pulse 90 09/12/20 08:37 Pulse Rhythm Regular 09/11/20 19:15 Respiratory Rate 16 09/12/20 08:37 Respiratory Effort Non-Labored 09/12/20 08:39 Respiratory Depth Normal 09/12/20 08:39 Respiratory Pattern Normal 09/12/20 08:39 Blood Pressure 110/65 09/12/20 08:37 Pulse Oximetry 99 09/12/20 08:37 Oxygen Delivery Method Room Air 09/12/20 08:37 Oxygen Flow Rate 0 09/12/20 08:37 Pain Level 7 09/12/20 08:56 Intake & Output 09/11/20 09/11/20 09/12/20 11:59 23:59 11:59 Intake Total 1330 / 1330 Output Total 1200 / 1200 Balance 130 / 130 Weight 119 kg Intake: IV 1330 / 1330 Output: Urine 1200 / 1200 Other: Urine Color Yellow Yellow Urine Appearance Clear Clear Urine Odor None None Emesis Description None Voiding Methods Toilet Toilet Data Completed and Pending Labs on day of discharge: Labs from last 24 hours 09/12/20 09/11/20 09/11/20 08:45 16:52 11:52 WBC RBC Hgb 8.2 L Hct 27.0 L MCV MCH MCHC RDW Plt Count MPV Immature Gran % Neutrophils % Lymphocytes % Monocytes % Eosinophils % Basophils % Nucleated RBC % Absolute Neutrophils Absolute Lymphocytes Absolute Monocytes Absolute Eosinophils Absolute Basophils Silica Clot Time Scrn Dil Aníbal Viper Venom Lupus Anticoag Interp Iron TIBC Transferrin % Sat C-Reactive Protein Cancelled 1.18 H CALEB Titer CALEB Titer 2 CALEB Titer 3 CALEB Interpretation c-ANCA p-ANCA COVID-19 Source SARS-CoV-2 (PCR) Patient ABO/Rh Antibody Screen 09/11/20 09/11/20 09/11/20 11:52 11:52 11:52 WBC RBC Hgb Hct MCV MCH MCHC RDW Plt Count MPV Immature Gran % Neutrophils % Lymphocytes % Monocytes % Eosinophils % Basophils % Nucleated RBC % Absolute Neutrophils Absolute Lymphocytes Absolute Monocytes Absolute Eosinophils Absolute Basophils Silica Clot Time Scrn Pending Dil Aníbal Viper Venom Pending Lupus Anticoag Interp Pending Iron TIBC Transferrin % Sat C-Reactive Protein CALEB Titer Pending CALEB Titer 2 Pending CALEB Titer 3 Pending CALEB Interpretation Pending c-ANCA Pending p-ANCA Pending COVID-19 Source SARS-CoV-2 (PCR) Patient ABO/Rh Antibody Screen 09/11/20 09/11/20 09/11/20 11:52 11:52 11:52 WBC 11.35 H RBC 3.72 L Hgb 9.1 L Hct 30.1 L MCV 80.9 MCH 24.5 L MCHC 30.2 L RDW 15.6 H Plt Count 371 MPV 10.3 Immature Gran % 0.4 Neutrophils % 60.0 Lymphocytes % 27.5 Monocytes % 6.9 Eosinophils % 4.6 Basophils % 0.6 Nucleated RBC % 0 Absolute Neutrophils 6.81 H Absolute Lymphocytes 3.12 Absolute Monocytes 0.78 Absolute Eosinophils 0.52 Absolute Basophils 0.07 Silica Clot Time Scrn Dil Aníbal Viper Venom Lupus Anticoag Interp Iron 14 L TIBC 446 Transferrin % Sat 3 L C-Reactive Protein CALEB Titer CALEB Titer 2 CALEB Titer 3 CALEB Interpretation c-ANCA p-ANCA COVID-19 Source SARS-CoV-2 (PCR) Patient ABO/Rh O Positive Antibody Screen NEGATIVE 09/11/20 10:43 WBC RBC Hgb Hct MCV MCH MCHC RDW Plt Count MPV Immature Gran % Neutrophils % Lymphocytes % Monocytes % Eosinophils % Basophils % Nucleated RBC % Absolute Neutrophils Absolute Lymphocytes Absolute Monocytes Absolute Eosinophils Absolute Basophils Silica Clot Time Scrn Dil Aníbal Viper Venom Lupus Anticoag Interp Iron TIBC Transferrin % Sat C-Reactive Protein CALEB Titer CALEB Titer 2 CALEB Titer 3 CALEB Interpretation c-ANCA p-ANCA COVID-19 Source Cancelled SARS-CoV-2 (PCR) Cancelled Patient ABO/Rh Antibody Screen [facility] Medical History (Updated 09/11/20 @ 12:48 by Priyanka Douglas DO) ADHD Anxiety Depression Hx of hemorrhoids Insomnia Surgical History H/O esophagogastroduodenoscopy (~07/2020) History of colonoscopy (~07/2020) S/P hemorrhoidectomy (~08/07/20) Social History Smoking/Tobacco Use Status: Former Tobacco Use (Quit 1.5 years ago) Smoking risk assessment performed?: Yes Alcohol Intake: never Drug use: Daily Substance use type: marijuana (Everyday smoker) Current gender identity: female Do you feel safe at home: Yes Do you feel safe in your relationship?: Yes
--- NOTE | 2020-09-12 09:46 | W.PM.PROGNOT ---
Date of Service Date of service: 09/12/20 Time of Service: 09:46 Assessment and Plan Assessment and plan (1) Rectal/anal hemorrhage: Status: Acute Assessment and plan: Hemoglobin is currently pending IV iron supplementation today Continue supportive care and pain management Discharge later on today. (2) Anemia: Status: Chronic Subjective Subjective Interval history since last seen: Patient is feeling better today. She still having quite a bit of pain. Sits baths do help. She is having scant bleeding when she goes to the bathroom and wipes. Pt is doing well. no headaches. No CP or SOB. no productive cough. no dysuria. no leg pain or swelling. Exam Resp Effort & Inspection: normal respiratory effort and able to speak in complete sentences Auscultation: clear to auscultation bilaterally Cardio Rate: regular rate Rhythm: regular rhythm GI Palpation: soft Objective Last Vital Signs Temp 36.7 C 09/12/20 08:37 Pulse 90 09/12/20 08:37 Resp 16 09/12/20 08:37 BP 110/65 09/12/20 08:37 Pulse Ox 99 09/12/20 08:37 Laboratory Results - last 24 hr 09/11/20 09/11/20 09/11/20 10:43 11:52 11:52 WBC 11.35 H RBC 3.72 L Hgb 9.1 L Hct 30.1 L MCV 80.9 MCH 24.5 L MCHC 30.2 L RDW 15.6 H Plt Count 371 MPV 10.3 Immature Gran % 0.4 Neutrophils % 60.0 Lymphocytes % 27.5 Monocytes % 6.9 Eosinophils % 4.6 Basophils % 0.6 Nucleated RBC % 0 Absolute Neutrophils 6.81 H Absolute Lymphocytes 3.12 Absolute Monocytes 0.78 Absolute Eosinophils 0.52 Absolute Basophils 0.07 Iron TIBC Transferrin % Sat C-Reactive Protein COVID-19 Source Cancelled SARS-CoV-2 (PCR) Cancelled Patient ABO/Rh O Positive Antibody Screen NEGATIVE 09/11/20 09/11/20 09/11/20 11:52 11:52 16:52 WBC RBC Hgb Hct MCV MCH MCHC RDW Plt Count MPV Immature Gran % Neutrophils % Lymphocytes % Monocytes % Eosinophils % Basophils % Nucleated RBC % Absolute Neutrophils Absolute Lymphocytes Absolute Monocytes Absolute Eosinophils Absolute Basophils Iron 14 L TIBC 446 Transferrin % Sat 3 L C-Reactive Protein 1.18 H Cancelled COVID-19 Source SARS-CoV-2 (PCR) Patient ABO/Rh Antibody Screen 09/12/20 08:45 WBC RBC Hgb 8.2 L Hct 27.0 L MCV MCH MCHC RDW Plt Count MPV Immature Gran % Neutrophils % Lymphocytes % Monocytes % Eosinophils % Basophils % Nucleated RBC % Absolute Neutrophils Absolute Lymphocytes Absolute Monocytes Absolute Eosinophils Absolute Basophils Iron TIBC Transferrin % Sat C-Reactive Protein COVID-19 Source SARS-CoV-2 (PCR) Patient ABO/Rh Antibody Screen
--- NOTE | 2020-09-12 10:02 | W.PM.DS.N ---
DS: Diagnosis Discharge Diagnosis (1) Rectal/anal hemorrhage: Status: Acute (2) Bright red rectal bleeding: Status: Acute (3) Anemia: Status: Chronic Discharge Plan Disposition Patient Disposition: HOME Condition: Improving Discharge Details Reason For Visit: EUA Admit Date/Time: 09/11/20 14:28 Admit Provider: Priyanka Douglas Attending Provider: Priyanka Douglas Primary Care Provider: Nieves,Local Hospital Course Hospital Course: Patient was seen in clinic and was continuing to have bright red rectal bleeding. She is taken for exam under anesthesia and reexcision of the bleeding site. Please see the operative report for details of the procedure. Postoperatively she was admitted overnight for pain control and monitoring of bleeding. She had no significant bleeding overnight. She will receive letter for today and be discharged home and follow-up in clinic. She is given instructions in wound care, activity, and warning signs. If she experiences heavy bleeding, she should return to the ED. Patient understood all and discharged in stable and satisfactory condition Home Meds and New Rx's Prescriptions: New dibucaine 1 % ointment 1 applic topical QID Qty: 30 RF: 12 bisacodyl [Dulcolax (bisacodyl)] 5 mg tablet,delayed release (DR/EC) 5 mg PO DAILY Qty: 60 RF: 6 oxycodone 5 mg capsule 5 mg PO Q4H PRN (Reason: pain (scale score 7-10)) Qty: 14 RF: 0 Continued eszopiclone [Lunesta] 1 mg tablet 1 mg PO QHS PRNRF: 0 propranolol 10 mg Tablet 10 mg PO TID PRN (Reason: Anxiety) RF: 0 bupropion HCl [Wellbutrin XL] 150 mg tablet extended release 24 hr 300 mg PO QAM RF: 0 dexmethylphenidate [Focalin XR] 20 mg capsule,ER biphasic 50-50 10 mg PO DAILY RF: 0 fluoxetine [Prozac] 40 mg capsule 60 mg PO DAILY RF: 0 levomefolate calcium 7.5 mg tablet 15 mg PO DAILY RF: 0 dibucaine [Nupercainal] 1 % Ointment 1 applic WI QID Qty: 56 RF: 0 Discontinued silver sulfadiazine [Silvadene] 1 % cream 1 applic topical BID Qty: 20 RF: 0 hydrocortisone 2.5 % cream with perineal applicator 1 applic WI BID Qty: 30 RF: 1 Discharge Instructions Additional Instructions: Home Care Instructions after Rectal Surgery Pain control: Tylenol 1000mg by mouth every 8 hours. Do not take Tylenol if you have hepatitis or liver failure. Take pain meds continuously for the first 72hrs. After 72hrs, you can take as needed if you are having pain. you also have topical dibucaine cream to numb the area. For pain > 7, you do have oxycodone. Try to use minimal of these- as they will cause extreme constipation. How to prevent constipation: The first bowel movement after surgery will be painful. Do not let yourself get constipated. Stay on a stool softener for the first two weeks after surgery. If you do not have a bowel movement daily, use Milk of Magnesia or Miralax. You may have bleeding or drainage after rectal surgery; especially when you move your bowels. Use a sanitary napkin to collect the discharge. If you are passing large clots or having to change the pad more than every 4 hours, call the clinic or go to the ER. You do have suture material in place. The should dissolve and fall out in about 10 to 14 days. You may experience spasms in the rectal muscles. This is normal after surgery and last for about two weeks. They can become more intense with bowel movements. The best remedy is to soak in a bathtub of plain warm water- no Epsom salts, essential oil or soap. It takes about 10 minutes for a spasm to stop. You may want to do this after BM as well. It is ok to shower. Avoid soap on the surgical area. Use a pillow to sit on. Follow a mild bland diet. Avoid alcohol, spicy food, citrus, and tomatoes. Avoid strenuous activity (running, jogging, and power walking, swimming, weight lifting) for two weeks. No lifting over 20 pounds for 2 weeks. F/u w/ Dr. Douglas or Esme in 2 wks time. Activity:: see above Equipment/Supplies:: No Equipment Needed Diet:: see above DS: Summary Time Spent with Patient providing and/or coordinating discharge services: Less than 30 minutes Status at Discharge Functional status at discharge: independent ambulation Overall status at discharge: patient is back to baseline Mental Status: mental status grossly normal Speech and Movement: speech and movement normal Mood: congruent mood Affect: normal affect Exam Psych Mental Status: mental status grossly normal Speech and Movement: speech and movement normal Mood: congruent mood Affect: normal affect DS: Data Vitals/I&O Vitals and I&O: Vital Signs Temperature 36.7 C 09/12/20 08:37 Temperature Source Oral 09/12/20 08:37 Pulse 90 09/12/20 08:37 Pulse Rhythm Regular 09/11/20 19:15 Respiratory Rate 16 09/12/20 08:37 Respiratory Effort Non-Labored 09/12/20 08:39 Respiratory Depth Normal 09/12/20 08:39 Respiratory Pattern Normal 09/12/20 08:39 Blood Pressure 110/65 09/12/20 08:37 Pulse Oximetry 99 09/12/20 08:37 Oxygen Delivery Method Room Air 09/12/20 08:37 Oxygen Flow Rate 0 09/12/20 08:37 Pain Level 7 09/12/20 09:35 Intake & Output 09/11/20 09/11/20 09/12/20 11:59 23:59 11:59 Intake Total 1330 / 1330 Output Total 1200 / 1200 Balance 130 / 130 Weight 119 kg Intake: IV 1330 / 1330 Output: Urine 1200 / 1200 Other: Urine Color Yellow Yellow Urine Appearance Clear Clear Urine Odor None None Emesis Description None Voiding Methods Toilet Toilet Data Completed and Pending Labs on day of discharge: Labs from last 24 hours 09/12/20 09/11/20 09/11/20 08:45 16:52 11:52 WBC RBC Hgb 8.2 L Hct 27.0 L MCV MCH MCHC RDW Plt Count MPV Immature Gran % Neutrophils % Lymphocytes % Monocytes % Eosinophils % Basophils % Nucleated RBC % Absolute Neutrophils Absolute Lymphocytes Absolute Monocytes Absolute Eosinophils Absolute Basophils Silica Clot Time Scrn Dil Aníbal Viper Venom Lupus Anticoag Interp Iron TIBC Transferrin % Sat C-Reactive Protein Cancelled 1.18 H CALEB Titer CALEB Titer 2 CALEB Titer 3 CALEB Interpretation c-ANCA p-ANCA COVID-19 Source SARS-CoV-2 (PCR) Patient ABO/Rh Antibody Screen 09/11/20 09/11/20 09/11/20 11:52 11:52 11:52 WBC RBC Hgb Hct MCV MCH MCHC RDW Plt Count MPV Immature Gran % Neutrophils % Lymphocytes % Monocytes % Eosinophils % Basophils % Nucleated RBC % Absolute Neutrophils Absolute Lymphocytes Absolute Monocytes Absolute Eosinophils Absolute Basophils Silica Clot Time Scrn Pending Dil Aníbal Viper Venom Pending Lupus Anticoag Interp Pending Iron TIBC Transferrin % Sat C-Reactive Protein CALEB Titer Pending CALEB Titer 2 Pending CALEB Titer 3 Pending CALEB Interpretation Pending c-ANCA Pending p-ANCA Pending COVID-19 Source SARS-CoV-2 (PCR) Patient ABO/Rh Antibody Screen 09/11/20 09/11/20 09/11/20 11:52 11:52 11:52 WBC 11.35 H RBC 3.72 L Hgb 9.1 L Hct 30.1 L MCV 80.9 MCH 24.5 L MCHC 30.2 L RDW 15.6 H Plt Count 371 MPV 10.3 Immature Gran % 0.4 Neutrophils % 60.0 Lymphocytes % 27.5 Monocytes % 6.9 Eosinophils % 4.6 Basophils % 0.6 Nucleated RBC % 0 Absolute Neutrophils 6.81 H Absolute Lymphocytes 3.12 Absolute Monocytes 0.78 Absolute Eosinophils 0.52 Absolute Basophils 0.07 Silica Clot Time Scrn Dil Aníbal Viper Venom Lupus Anticoag Interp Iron 14 L TIBC 446 Transferrin % Sat 3 L C-Reactive Protein CALEB Titer CALEB Titer 2 CALEB Titer 3 CALEB Interpretation c-ANCA p-ANCA COVID-19 Source SARS-CoV-2 (PCR) Patient ABO/Rh O Positive Antibody Screen NEGATIVE 09/11/20 10:43 WBC RBC Hgb Hct MCV MCH MCHC RDW Plt Count MPV Immature Gran % Neutrophils % Lymphocytes % Monocytes % Eosinophils % Basophils % Nucleated RBC % Absolute Neutrophils Absolute Lymphocytes Absolute Monocytes Absolute Eosinophils Absolute Basophils Silica Clot Time Scrn Dil Aníbal Viper Venom Lupus Anticoag Interp Iron TIBC Transferrin % Sat C-Reactive Protein CALEB Titer CALEB Titer 2 CALEB Titer 3 CALEB Interpretation c-ANCA p-ANCA COVID-19 Source Cancelled SARS-CoV-2 (PCR) Cancelled Patient ABO/Rh Antibody Screen [facility] Medical History (Updated 09/11/20 @ 12:48 by Priyanka Douglas DO) ADHD Anxiety Depression Hx of hemorrhoids Insomnia Surgical History H/O esophagogastroduodenoscopy (~07/2020) History of colonoscopy (~07/2020) S/P hemorrhoidectomy (~08/07/20) Social History Smoking/Tobacco Use Status: Former Tobacco Use (Quit 1.5 years ago) Smoking risk assessment performed?: Yes Alcohol Intake: never Drug use: Daily Substance use type: marijuana (Everyday smoker) Current gender identity: female Do you feel safe at home: Yes Do you feel safe in your relationship?: Yes
[2020-09-12] MEDS: IRON SUCROSE COMPLEX 200 MG in Normal Saline 100 ML 400 MG IVPB (10:07)
[2020-09-12 15:07] LABS: ANA Interpretation Negative (Negative)
[2020-09-12 17:14] LABS: Dilute Russell Viper Venom 43.2 secs (31.9-47.0); LA Cascade Summary (See Note); Silica Clotting Time 40.9 secs (30.2-48.4)
[2020-09-13 11:39] LABS: c-ANCA Negative (Negative); p-ANCA Negative (Negative)
== END 2020-09-12 11:50 | disposition home or self-care (01) | DRG 349 ==
LOC: OBS 14:50
PROVIDERS: Admitting Provider Surgery; Visit Provider Surgery
PROC: 0W3P7ZZ Control Bleeding in Gastrointestinal Tract, Via Natural or Artificial Opening (ICD-10-PCS; CPT 46614; principal; 2020-09-11 11:45)
PROC: 0W3P7ZZ Control Bleeding in Gastrointestinal Tract, Via Natural or Artificial Opening (ICD-10-PCS; CPT 46614; 2020-09-11 11:45)
DX: K62.5 Hemorrhage of anus and rectum (principal); F41.9 Anxiety disorder, unspecified; F90.9 Attention-deficit hyperactivity disorder, unspecified type; F32.9 Major depressive disorder, single episode, unspecified; G47.00 Insomnia, unspecified; F12.90 Cannabis use, unspecified, uncomplicated; Z87.891 Personal history of nicotine dependence; Z20.822 Contact with and (suspected) exposure to COVID-19
CPT/HCPCS: 46614; 46606; 36415; 86850; 86900; 86901; 87116; 87635; 88305; 83540; 83550; 85014; 85018; 85025; 86038; 86140; 86255; J1100; J1756; J2001; J2250; J2405

== ENCOUNTER 2020-09-14 00:39 | Inpatient (IN) | payer OTHER, SELFPAY ==
[2020-09-14] VITALS (37 sets, daily range): BP systolic 93–120; BP diastolic 47–98; PULSE 67–129; RESP 11–24; TEMP 36.4–36.7; O2SAT 93–100
[2020-09-14] MEDS: diazePAM 10 MG/2 ML SYR 5 MG IVP ×2 (01:17→07:32)
[2020-09-14 01:55] LABS: Abs Immature Grans 0.12 10^3/uL (0.0-0.06); Basophils % 0.6; Eosinophils % 3.9; HCT 30.1 % (36.0-46.0); Immature Grans % 0.8; Lymphocytes % 31.6; MCH 24.2 pg (27.0-33.0); MCHC 29.9 % (32.0-36.0); MCV 80.9 fL (80-95); MPV 9.7 fL (8.0-11.0); Monocytes % 6.2; Neutrophils % 56.9; Nucleated RBC 0 %; Platelet Count 408 10^3/uL (130-400); RBC 3.72 10^6/uL (3.93-5.22); RDW 15.9 % (11.7-14.6); RDW-SD 46.6 fL; WBC 14.44 10^3/uL (4.4-10.8)
[2020-09-14 01:56] LABS: Absolute Basophil Count 0.09 10^3/uL (0.0-0.2); Absolute Eosinophil Count 0.56 10^3/uL (0.0-0.7); Absolute Lymphocyte Count 4.56 10^3/uL (1.2-3.4); Absolute Neutrophil Count 8.22 10^3/uL (1.2-6.7)
[2020-09-14] MEDS: HYDROmorphone 2 MG/ML VIAL 1 MG IVP ×4 (01:58→22:54)
[2020-09-14 02:04] LABS: Anion Gap 11.6 mmol/L (3-11); BUN 9 mg/dL (7-18); CO2 26.4 mmol/L (21.0-32.0); CREATININE 0.8 mg/dL (0.55-1.02); Calcium 8.6 mg/dL (8.5-10.1); Chloride 105 mmol/L (98-107); Glucose 102 mg/dL (74-106); Potassium 3.4 mmol/L (3.5-5.1); Sodium 143 mmol/L (136-145)
--- NOTE | 2020-09-14 02:25 | DI.CT_ITS ---
Exam(s) CT ABDOMEN PELVIS W EXAM: CT ABDOMEN PELVIS W CLINICAL HISTORY: pain rectum postop hemorrhoidectomy. TECHNIQUE: Imaging Protocol: Axial computed tomography images with coronal and sagittal reformatted images were created and reviewed CONTRAST MATERIAL: Intravenous: Omnipaque 100cc Oral: None COMPARISON: No exams were available for comparison FINDINGS: VISUALIZED LUNG BASES: No nodules nor pleural effusions evident. ABDOMEN: There is no ascites. LIVER: Hepatic steatosis. There are no discrete focal hepatic lesions nor dilatation of intrahepatic ducts. GALLBLADDER/BILIARY: No obvious gallbladder pathology. CBD is not dilated. PANCREAS: No evidence of pancreatic mass nor dilatation of the pancreatic duct. SPLEEN: Spleen size is upper normal. No splenic lesions. Splenic and portal veins are patent. ADRENALS: There are no significant adrenal masses. KIDNEYS:No cysts evident. No solid renal masses. No calculi nor hydronephrosis.. ABDOMINAL AORTA: Abdominal aorta is not enlarged. LYMPH NODES:There is no retroperitineal nor paraaortic adenopathy. ABDOMINAL WALL: No evidence of significant anterior abdominal wall hernia. GI: There is no evidence of bowel obstruction, free air, nor abscess. PELVIS: GI: No evidence of appendicitis.No evidence of sigmoid diverticulitis. LYMPH NODES: There is no intrapelvic nor inguinal adenopathy. REPRODUCTIVE: IUD is noted in the uterus. URINARY BLADDER: No calculi nor obvious masses evident OSSEOUS: No significant osseous lesions. Sacroiliac joints unremarkable. IMPRESSION: 1. IUD is noted in the uterus. Appears to be sitting slightly low in the uterine cavity. There are no abnormal adnexal masses. No free fluid in the abdomen and pelvis. 2. Hepatic steatosis is noted. Correlation with appropriate hepatic blood work recommended. There a re no discrete focal hepatic lesions. 3. No evidence of acute appendicitis. 4. RADIATION DOSE DELIVERED: 1,515.73mGy.cm Total DLP DATA REPOSITORY: All CT scans at this facility are submitted to the National Radiology Data Registry (NRDR) Dose Index Registry (DIR) with the [employer] (ACR). RADIATION OPTIMIZATION: All CT scans at this facility use at least one of these dose optimization te chniques: automated exposure control; mA and/or kV adjustment per patient size (includes targeted exa ms where dose is matched to clinical indication); or iterative reconstruction.
[2020-09-14] MEDS: Normal Saline - Diluent 50 ML VIAL IV (03:17)
[2020-09-14] MEDS: Omnipaque 350 MG/ML 100 ML BTL IJ (03:18)
[2020-09-14] MEDS: Omnipaque 350 MG/ML 50 ML BTL 25 ML IJ (03:19)
--- NOTE | 2020-09-14 03:22 | W.ED.GENAD ---
Discharge Plan Disposition Patient Disposition: [facility] INPATIENT Condition: Serious Discharge Details Clinical Impression: Pain in rectum, Bladder spasm, Urinary retention Admit Date/Time: 09/14/20 07:00 Admit Provider: Nelson Sharma Attending Provider: Nelson Sharma Primary Care Provider: Nieves,Local ED Provider: Donnie Linares Discharge Data Discharge Date/Time-TO BE ENTERED AT DEPARTURE: 09/14/20 08:29 Medical Decision Making 3:00??24-year-old female presents 2 days status post suturing of rectal arterial bleeding with painful spasm of her rectum and inability to pass stool as well as urinary retention Nursing unable to place peripheral IV. Peripheral IV was placed by me under ultrasound guidance. Labs reviewed and leukocytosis noted. Patient is anemic although this is improved from recent prior. CT the abdomen pelvis was performed to assess for acute surgical pathology. Patient was given Valium 5 mg IM and Dilaudid 1 mg IV. --Pain improved on reassessment after Dilaudid. 430 --CT the abdomen pelvis was interpreted by radiology: IMPRESSION: No acute findings. Patient did have full bladder on CT and continued to have inability to urinate. Butler catheter was placed. --Patient reassessed and having recurrent exacerbation of pain. Will give dose Dilaudid 1 mg IV 530 -- I spoke with Dr. Sharma, cone classifier tender general surgeon, I discussed ED presentation and course and my recommendation for admission for IV fluids and pain control. She will review CT scan and call back. 655 --Dr. Sharma reviewed CT and will accept the patient for admission. She request bridging orders be placed to the floor. Lab Data Lab results reviewed: Yes I reviewed the patient's lab results. Labs: Laboratory Tests Range/Units 09/14/20 09/14/20 09/14/20 01:50 01:50 03:43 WBC (4.4-10.8) 10^3/uL 14.44 H RBC (3.93-5.22) 10^6/uL 3.72 L Hgb (11.2-15.7) g/dL 9.0 L Hct (36.0-46.0) % 30.1 L MCV (80-95) fL 80.9 MCH (27.0-33.0) pg 24.2 L MCHC (32.0-36.0) % 29.9 L RDW (11.7-14.6) % 15.9 H Plt Count (130-400) 10^3/uL 408 H MPV (8.0-11.0) fL 9.7 Immature Gran % 0.8 Neutrophils % 56.9 Lymphocytes % 31.6 Monocytes % 6.2 Eosinophils % 3.9 Basophils % 0.6 Nucleated RBC % % 0 Absolute Neutrophils (1.2-6.7) 10^3/uL 8.22 H Absolute Lymphocytes (1.2-3.4) 10^3/uL 4.56 H Absolute Monocytes (0.1-0.8) 10^3/uL 0.90 H Absolute Eosinophils (0.0-0.7) 10^3/uL 0.56 Absolute Basophils (0.0-0.2) 10^3/uL 0.09 Sodium (136-145) mmol/L 143 Potassium (3.5-5.1) mmol/L 3.4 L Chloride (98-107) mmol/L 105 Carbon Dioxide (21.0-32.0) mmol/L 26.4 Anion Gap (3-11) mmol/L 11.6 H BUN (7-18) mg/dL 9 Creatinine (0.55-1.02) mg/dL 0.8 Estimated GFR/1.73 m2 (mL/min/1.73m2) >= 60.00 Glucose (74-106) mg/dL 102 Calcium (8.5-10.1) mg/dL 8.6 Urine Color (Yellow) Yellow Urine Clarity (Clear) Clear Urine pH (5-8) 6.0 Ur Specific [place] (1.005-1.025) 1.010 Urine Protein (Negative) mg/dL Negative Urine Ketones (Negative) mg/dL Negative Urine Blood (Negative) Negative Urine Nitrite (Negative) Negative Urine Bilirubin (Negative) Negative Urine Urobilinogen (Up TO 0.2) EU/dL 0.2 Ur Leukocyte Esterase (Negative) Negative Urine Glucose (Negative) mg/dL Negative HPI General Mode of arrival: ambulatory. Date/Time Provider Initiated Documentation: 09/14/20 00:43. Limitations to Documentation: no limitations. Information obtained by: patient. HPI Narrative: 24-year-old female presents 2 days status post rectal arterial bleed suture closure by general surgery, with chief complaint of rectal pain. Patient notes pain described as spasm over the past 2 days. Pain is severe and constant. She notes continued spotting of blood. She also notes inability to have bowel movement and unable to urinate. She states that she had some urine leaking out during sitz bath. She has been taking Valium and oxycodone as prescribed. This seems to minimally help her discomfort for short period of time. No associated abdominal pain. No fever. Related Data Home Medications Medication Instructions Recorded Confirmed propranolol 10 mg PO TID PRN 07/19/20 09/19/20 bupropion HCl 150 mg 24 hr tablet, 300 mg PO QAM tab 07/23/20 09/19/20 extended release dexmethylphenidate 20 mg 10 mg PO DAILY cap 07/23/20 09/19/20 capsule,extended release [id number] eszopiclone 1 mg tablet 1 mg PO QHS PRN 07/23/20 09/19/20 fluoxetine 40 mg capsule 60 mg PO DAILY cap 07/23/20 09/19/20 levomefolate calcium 7.5 mg tablet 15 mg PO DAILY tab 07/23/20 09/19/20 dibucaine [Nupercainal] 1 applic NC QID #56 g 09/07/20 09/19/20 bisacodyl [Dulcolax (bisacodyl)] 5 mg PO DAILY #60 tab 09/12/20 09/19/20 dibucaine 1 applic TOPICAL QID #30 g 09/12/20 09/19/20 oxycodone 5 mg PO Q4H PRN #14 cap 09/12/20 09/19/20 diazepam 5 mg tablet 5 mg PO Q6H PRN PRN #20 tab 09/13/20 09/19/20 Previous Rx's Medication Instructions Recorded dibucaine [Nupercainal] 1 applic NC QID #56 g 09/07/20 bisacodyl [Dulcolax (bisacodyl)] 5 mg PO DAILY #60 tab 09/12/20 dibucaine 1 applic TOPICAL QID #30 g 09/12/20 oxycodone 5 mg PO Q4H PRN #14 cap 09/12/20 diazepam 5 mg tablet 5 mg PO Q6H PRN PRN #20 tab 09/13/20 Allergies Allergy/AdvReac Type Severity Reaction Status Date / Time hazelnut Allergy Itching Verified 09/20/20 15:43 soy Allergy Itching Verified 09/20/20 15:43 General Stated Complaint: GenMedical RUBENS: 3 Review of Systems All systems reviewed & are unremarkable except as noted in HPI and below Constitutional Constitutional: Denies fever(s) Gastrointestinal Gastrointestinal: Reports as per HPI PFSH Medical History ADHD Anxiety Depression Hx of hemorrhoids Insomnia Surgical History H/O esophagogastroduodenoscopy (~07/2020) History of colonoscopy (~07/2020) S/P hemorrhoidectomy (~08/07/20) Social History Smoking/Tobacco Use Status: Former Tobacco Use Smoking risk assessment performed?: Yes Alcohol Intake: never Drug use: Daily Substance use type: marijuana Current gender identity: female Do you feel safe at home: Yes Do you feel safe in your relationship?: Yes Exam Const General: cooperative and no acute distress HENMT Mouth: moist mucous membranes Eyes Conjunctivae: normal conjunctivae Sclera: normal sclerae Resp Auscultation: clear to auscultation bilaterally, no rales, no rhonchi and no wheezes Cardio Rate: regular rate and not tachycardic Rhythm: regular rhythm GI Palpation: soft, not firm, no guarding, no masses, not rigid and nontender Skin General skin exam: no rashes or lesions noted Neuro General: patient alert, patient awake, patient oriented x3 and tone normal Extrem General: no edema Course Vital Signs Vital signs: Vital Signs Temperature 36.7 C 09/14/20 00:42 Pulse 129 H 09/14/20 00:42 Respiratory Rate 24 09/14/20 00:42 Blood Pressure 120/98 H 09/14/20 00:42 Pulse Oximetry 97 09/14/20 00:42 Temperature 36.7 C 09/14/20 00:42 Temperature Source Temporal Artery Scan 09/14/20 00:42 Pulse 129 H 09/14/20 00:42 Respiratory Rate 22 09/14/20 01:23 Respiratory Effort Non-Labored 09/14/20 01:23 Respiratory Depth Normal 09/14/20 01:23 Respiratory Pattern Normal 09/14/20 01:23 Blood Pressure 120/98 H 09/14/20 00:42 Blood Pressure Position Supine 09/14/20 00:42 Pulse Oximetry 97 09/14/20 00:42 Oxygen Delivery Method Room Air 09/14/20 00:42 Oxygen Flow Rate 0 09/14/20 00:42 Pain Level 10 09/14/20 01:58 Lab/Test Results Lab/Test Results: Laboratory Tests Range/Units 09/14/20 09/14/20 01:50 01:50 WBC (4.4-10.8) 10^3/uL 14.44 H RBC (3.93-5.22) 10^6/uL 3.72 L Hgb (11.2-15.7) g/dL 9.0 L Hct (36.0-46.0) % 30.1 L MCV (80-95) fL 80.9 MCH (27.0-33.0) pg 24.2 L MCHC (32.0-36.0) % 29.9 L RDW (11.7-14.6) % 15.9 H Plt Count (130-400) 10^3/uL 408 H MPV (8.0-11.0) fL 9.7 Immature Gran % 0.8 Neutrophils % 56.9 Lymphocytes % 31.6 Monocytes % 6.2 Eosinophils % 3.9 Basophils % 0.6 Nucleated RBC % % 0 Absolute Neutrophils (1.2-6.7) 10^3/uL 8.22 H Absolute Lymphocytes (1.2-3.4) 10^3/uL 4.56 H Absolute Monocytes (0.1-0.8) 10^3/uL 0.90 H Absolute Eosinophils (0.0-0.7) 10^3/uL 0.56 Absolute Basophils (0.0-0.2) 10^3/uL 0.09 Sodium (136-145) mmol/L 143 Potassium (3.5-5.1) mmol/L 3.4 L Chloride (98-107) mmol/L 105 Carbon Dioxide (21.0-32.0) mmol/L 26.4 Anion Gap (3-11) mmol/L 11.6 H BUN (7-18) mg/dL 9 Creatinine (0.55-1.02) mg/dL 0.8 Estimated GFR/1.73 m2 (mL/min/1.73m2) >= 60.00 Glucose (74-106) mg/dL 102 Calcium (8.5-10.1) mg/dL 8.6
[2020-09-14] MEDS: Lidocaine 2% Jelly 6 ML SYR (03:31)
[2020-09-14 03:48] LABS: Bilirubin Negative (Negative); Blood Negative (Negative); Clarity Clear (Clear); Glucose Negative (Negative); Ketones Negative (Negative); Leukocyte Esterase Negative (Negative); Nitrite Negative (Negative); Urobilinogen 0.2 EU/dL (Up TO 0.2)
--- NOTE | 2020-09-14 04:06 | DI.VRAD_ITS ---
PROCEDURE INFORMATION: Exam: CT Abdomen And Pelvis With Contrast Exam date and time: 09/14/2020 1:51 AM Age: 24 years old Clinical indication: Abdominal pain; Localized; Lower; Patient HX: Pain rectum, post-op hemorrhoidectomy. TECHNIQUE: Imaging protocol: Computed tomography of the abdomen and pelvis with contrast. Radiation optimization: All CT scans at this facility use at least one of these dose optimization techniques: automated exposure control; mA and/or kV adjustment per patient size (includes targeted exams where dose is matched to clinical indication); or iterative reconstruction. Contrast material: OMNI-PAQUE 350; Contrast volume: 125 ml; Contrast route: INTRAVENOUS (IV); COMPARISON: No relevant prior studies available. FINDINGS: Liver: There is a small region of focal fatty infiltration in the liver adjacent to the falciform ligament. Gallbladder and bile ducts: Normal. No calcified stones. No ductal dilation. Pancreas: Normal. No ductal dilation. Spleen: Normal. No splenomegaly. Adrenal glands: Normal. No mass. Kidneys and ureters: Normal. No hydronephrosis. Stomach and bowel: No dilated loops of small bowel or colonic dilatation. Appendix: Normal appendix. Intraperitoneal space: Unremarkable. No free air. No significant fluid collection. Vasculature: Unremarkable. No abdominal aortic aneurysm. Lymph nodes: Unremarkable. No enlarged lymph nodes. Urinary bladder: Unremarkable as visualized. Reproductive: IUD appears satisfactorily positioned in uterus. Bones/joints: Unremarkable. No acute fracture. Soft tissues: No abnormal soft tissue densities. IMPRESSION: No acute findings. Dictated and Authenticated by: Yosef Lancaster MD. Ordering:DELFINA Fields MD
[2020-09-14] MEDS: HYDROmorphone 2 MG/ML VIAL (04:56)
[2020-09-14] MEDS: Ketorolac 15 MG/ML VIAL IVP ×4 (07:03→22:27)
[2020-09-14] MEDS: ACETAMINOPHEN 1,000 MG/100 ML BTL 400 MG IVPB (07:04)
[2020-09-14] MEDS: Lactated Ringers 1,000 ML 150 ML IV ×3 (07:14→18:56)
[2020-09-14 07:20] LABS: Source Nasal/Nares
[2020-09-14 11:07] LABS: COVID-19 PCR Negative (Negative)
[2020-09-14] MEDS: Bisacodyl 5 MG TABEC PO (11:25)
[2020-09-14] MEDS: Methocarbamol 500 MG TAB PO ×4 (11:37→22:27)
--- NOTE | 2020-09-14 13:08 | W.PM.HP.N ---
Date of service: 09/14/20 Time of Service: 13:08 Assessment and Plan Assessment and plan (1) Pain in rectum: Status: Acute Assessment and plan: 24yo female POD# 3 s/p LISSAA, oversewing of anal verge arterial bleeder, presents with rectal pain and spasm. Will attempt to relieve patient's pain and help her defecate, or she may require manual disimpaction in the OR. --Sitz baths, as many as possible --stool softeners/laxatives--dulcolax, miralax --topical dibucaine to anus --muscle relaxant--methocarbamol --anitspasmodic--diazepam --pain control with Toradol, Tylenol, hydromorphone --AMBULATE (2) Urinary retention: Status: Acute Assessment and plan: Associated urinary retention due to anal pain and spasm --maintain blankenship catheter until anal pain decreases --oxybutinin History of Present Illness History of Present Illness Chief Complaint: rectal pain and spasm, urinary retention Consults Consult date: 09/14/20 Narrative: This is a 24-year-old female known to the surgical service, who presents after discharge on 09/13/23 with urinary retention, and rectal pain and spasm. The patient was orginally scoped by DR. Victoria on 08/07/20 for rectal bleeding. She had an EGD and colonoscopy at the time, and two hemorrhoids were banded. The patient re-presented on 09/06 with symptomatic anemia, and the patient was taken to the operating room by Dr. Douglas. A small arterial bleeder was seen near the anal margin and was oversewn. She received 2U PRBCs and was observed overnight. Her H/H was stable and she was discharged home with instructions to keep her stools smooth/loose with stool softeners/laxatives. On 09/11, again the patient had continuous rectal bleeding and the patient went to the operating room with Dr. Douglas. From the operative report: She again is having active arterial hemorrhage at this point... The area that was oversewn last Wednesday has ulcerated/broken down and is actively bleeding. There is absolutely nothing abnormal in this area. There is no signs of Crohn's disease. Is not associated with a hemorrhoid. It is an open area of arterial bleeding. The old suture and the area of the tear is excised and This is sent for biopsy. It was then oversewn with a 3-0 Vicryl in running fashion. She has minimal bleeding except for a suture hole puncture site following closure. She did receive TXA. I did place dibucaine soaked Gelfoam in the rectum. She was admitted overnight for observation for continued bleeding, and discharged on 09/12 in stable condition. She presented early this morning, 09/14, to the ED with complaints of being unable to urinate, and severe rectal pain and spasm. She reports that she has been doing many Sitz baths, and they do give her relief, but she has been unable to urinate. A Blankenship catheter was placed in the ED. A CT scan performed reported no acute findings, but in my review, the rectum looks quite full with stool. Review of Systems Constitutional Constitutional: Denies chills and Denies fever(s) ENT Ears, Nose, Mouth, and Throat: Denies dizziness Cardiovascular Cardiovascular: Denies chest pain and Denies dyspnea Respiratory Respiratory: Denies cough and Denies dyspnea Gastrointestinal Gastrointestinal: Denies abdominal pain, Denies hematochezia, Reports constipation and Reports cramping Genitourinary Genitourinary: Reports difficulty voiding and Reports urinary hesitancy Neurologic Neurologic: Denies dizziness Psychiatric Psychiatric: Reports anxiety and Reports depression PFSH Medical History ADHD Anxiety Depression Hx of hemorrhoids Insomnia Surgical History H/O esophagogastroduodenoscopy (~07/2020) History of colonoscopy (~07/2020) S/P hemorrhoidectomy (~08/07/20) Social History Smoking/Tobacco Use Status: Former Tobacco Use Smoking risk assessment performed?: Yes Alcohol Intake: never Drug use: Daily Substance use type: marijuana Current gender identity: female Do you feel safe at home: Yes Do you feel safe in your relationship?: Yes Meds Allergies and Home Medications Allergies Allergy/AdvReac Type Severity Reaction Status Date / Time hazelnut Allergy Itching Verified 09/14/20 08:01 soy Allergy Itching Verified 09/14/20 08:01 Home Medications Medication Instructions Recorded Confirmed Type propranolol 10 mg PO TID PRN 07/19/20 09/14/20 History bupropion HCl 150 mg 24 hr tablet, 300 mg PO QAM tab 07/23/20 09/14/20 History extended release dexmethylphenidate 20 mg 10 mg PO DAILY cap 07/23/20 09/14/20 History capsule,extended release [id number] eszopiclone 1 mg tablet 1 mg PO QHS PRN 07/23/20 09/14/20 History fluoxetine 40 mg capsule 60 mg PO DAILY cap 07/23/20 09/14/20 History levomefolate calcium 7.5 mg tablet 15 mg PO DAILY tab 07/23/20 09/14/20 History dibucaine [Nupercainal] 1 applic [place] QID #56 g 09/07/20 09/14/20 Rx bisacodyl [Dulcolax (bisacodyl)] 5 mg PO DAILY #60 tab 09/12/20 09/14/20 Rx dibucaine 1 applic TOPICAL QID #30 g 09/12/20 09/14/20 Rx oxycodone 5 mg PO Q4H PRN #14 cap 09/12/20 09/14/20 Rx diazepam 5 mg tablet 5 mg PO Q6H PRN PRN #20 tab 09/13/20 09/14/20 Rx Exam Const General: cooperative, healthy appearing and uncomfortable Nutritional Appearance: obese Orientation: alert, awake and oriented x3 Other: she appears uncomfortable, but non-toxic Neck Neck: supple Resp Effort & Inspection: normal respiratory effort, no grunting and not labored Auscultation: clear to auscultation bilaterally Cardio Rate: regular rate Rhythm: regular rhythm Heart Sounds: S1 normal and S2 normal GI Palpation: soft, no guarding, not rigid and nontender Other: Rectal: small , non-thrombosed external hemorrhoids/dkin tags visualized; no signs of active bleeding; pt could not tolerate tactile or digital rectal exam Other: Blankenship in place draining clear urine Skin General skin exam: no rashes or lesions noted Neuro General: patient alert, patient awake and patient oriented x3 Speech: speech normal Psych Appearance: grossly normal Mental Status: mental status grossly normal Speech and Movement: speech and movement normal Affect: normal affect Attitude: cooperative Thought Process: normal Thought Content: normal Insight: insight good Judgment: judgment good Results Imaging Abdomen CT scan report/results: report reviewed and image reviewed CT scan - pelvis: report reviewed and image reviewed Imaging Studies: CT abd/pel (09/14/20): No acute findings (vrad) By my interpretation, the patient has increased fecal load, with possible impaction Labs Result diagrams: 09/15/20 06:40 09/15/20 06:40 Labs: Laboratory Results - last 24 hr 09/14/20 09/14/20 09/14/20 01:50 01:50 03:43 WBC 14.44 H RBC 3.72 L Hgb 9.0 L Hct 30.1 L MCV 80.9 MCH 24.2 L MCHC 29.9 L RDW 15.9 H Plt Count 408 H MPV 9.7 Immature Gran % 0.8 Neutrophils % 56.9 Lymphocytes % 31.6 Monocytes % 6.2 Eosinophils % 3.9 Basophils % 0.6 Nucleated RBC % 0 Absolute Neutrophils 8.22 H Absolute Lymphocytes 4.56 H Absolute Monocytes 0.90 H Absolute Eosinophils 0.56 Absolute Basophils 0.09 Sodium 143 Potassium 3.4 L Chloride 105 Carbon Dioxide 26.4 Anion Gap 11.6 H BUN 9 Creatinine 0.8 Estimated GFR/1.73 m2 >= 60.00 Glucose 102 Calcium 8.6 Urine Color Yellow Urine Clarity Clear Urine pH 6.0 Ur Specific [place] 1.010 Urine Protein Negative Urine Ketones Negative Urine Blood Negative Urine Nitrite Negative Urine Bilirubin Negative Urine Urobilinogen 0.2 Ur Leukocyte Esterase Negative Urine Glucose Negative COVID-19 Source SARS-CoV-2 (PCR) 09/14/20 07:11 WBC RBC Hgb Hct MCV MCH MCHC RDW Plt Count MPV Immature Gran % Neutrophils % Lymphocytes % Monocytes % Eosinophils % Basophils % Nucleated RBC % Absolute Neutrophils Absolute Lymphocytes Absolute Monocytes Absolute Eosinophils Absolute Basophils Sodium Potassium Chloride Carbon Dioxide Anion Gap BUN Creatinine Estimated GFR/1.73 m2 Glucose Calcium Urine Color Urine Clarity Urine pH Ur Specific [place] Urine Protein Urine Ketones Urine Blood Urine Nitrite Urine Bilirubin Urine Urobilinogen Ur Leukocyte Esterase Urine Glucose COVID-19 Source Nasal/Nares SARS-CoV-2 (PCR) Negative Last Vital Signs Temp 97.5 F L 09/14/20 08:55 Pulse 88 09/14/20 08:55 Resp 18 09/14/20 08:55 BP 117/76 09/14/20 08:55 Pulse Ox 97 09/14/20 08:55
[2020-09-14] MEDS: Polyethylene Glycol 3350 17 GM PACKET PO ×2 (14:50→19:28)
[2020-09-14] MEDS: Oxybutynin-CR 5 MG TABCR PO (14:51)
[2020-09-14] MEDS: Methylnaltrexone 12 MG/0.6 ML VIAL SC (14:51)
[2020-09-14] MEDS: diazePAM 5 MG TAB PO ×2 (16:16→19:28)
[2020-09-14] MEDS: Potassium Chloride Liquid 20 MEQ PKT 40 MEQ PO (16:16)
[2020-09-14] MEDS: Normal Saline Flush 10 ML SYR IVP ×4 (17:06→22:53)
[2020-09-14] MEDS: Docusate Sodium 100 MG CAP PO (19:28)
[2020-09-15] MEDS: Lactated Ringers 1,000 ML 150 ML IV ×2 (01:33→06:40)
[2020-09-15] MEDS: Methocarbamol 500 MG TAB PO ×6 (01:33→21:09)
[2020-09-15] MEDS: Ketorolac 15 MG/ML VIAL IVP ×4 (03:03→21:07)
[2020-09-15] MEDS: HYDROmorphone 2 MG/ML VIAL 1 MG IVP ×3 (03:21→12:04)
[2020-09-15 03:24] VITALS: BP 113/75; PULSE 91; RESP 20; TEMP 36.5; O2SAT 97
[2020-09-15] MEDS: Acetaminophen 325 MG TAB 650 MG PO ×4 (05:44→21:08)
[2020-09-15 07:08] LABS: Abs Immature Grans 0.07 10^3/uL (0.0-0.06); Absolute Basophil Count 0.05 10^3/uL (0.0-0.2); Absolute Eosinophil Count 0.45 10^3/uL (0.0-0.7); Absolute Lymphocyte Count 2.88 10^3/uL (1.2-3.4); Absolute Neutrophil Count 4.83 10^3/uL (1.2-6.7); Basophils % 0.6; Eosinophils % 5.1; HCT 26.3 % (36.0-46.0); HGB 7.9 g/dL (11.2-15.7); Immature Grans % 0.8; Lymphocytes % 32.4; MCH 24.4 pg (27.0-33.0); MCV 81.2 fL (80-95); Monocytes % 6.8; Neutrophils % 54.3; Nucleated RBC 0 %; Platelet Count 303 10^3/uL (130-400); RBC 3.24 10^6/uL (3.93-5.22); RDW 16.2 % (11.7-14.6); RDW-SD 46.4 fL; WBC 8.88 10^3/uL (4.4-10.8)
[2020-09-15 07:10] LABS: Anion Gap 4.1 mmol/L (3-11); BUN 7 mg/dL (7-18); CO2 26.9 mmol/L (21.0-32.0); CREATININE 0.6 mg/dL (0.55-1.02); Calcium 8.4 mg/dL (8.5-10.1); Chloride 109 mmol/L (98-107); Glucose 95 mg/dL (74-106); Magnesium 1.9 mg/dL (1.8-2.4); Potassium 3.5 mmol/L (3.5-5.1); Sodium 140 mmol/L (136-145)
[2020-09-15 07:30] VITALS: BP 120/65; PULSE 72; RESP 20; TEMP 37; O2SAT 96
[2020-09-15] MEDS: buPROPion-XL 150 MG TABCR 300 MG PO (07:41)
[2020-09-15] MEDS: Oxybutynin-CR 5 MG TABCR PO (07:41)
[2020-09-15] MEDS: Docusate Sodium 100 MG CAP PO ×2 (07:41→20:18)
[2020-09-15] MEDS: diazePAM 5 MG TAB PO ×4 (07:41→20:18)
[2020-09-15] MEDS: Polyethylene Glycol 3350 17 GM PACKET PO ×3 (07:41→20:19)
[2020-09-15] MEDS: FLUoxetine 20 MG CAP 60 MG PO (07:41)
[2020-09-15] MEDS: Normal Saline Flush 10 ML SYR IVP ×4 (07:42→18:16)
[2020-09-15] MEDS: Potassium Chloride Liquid 20 MEQ PKT 40 MEQ PO (09:47)
[2020-09-15] MEDS: Methylnaltrexone 12 MG/0.6 ML VIAL SC (09:48)
[2020-09-15] MEDS: Hydrocortisone 25 MG SUPP PR ×2 (10:33→12:04)
[2020-09-15 10:42] LABS: HCG Qual (Urine) Negative
[2020-09-15 11:13] VITALS: BP 109/74; PULSE 92; RESP 16; TEMP 36.6; O2SAT 96
[2020-09-15 15:16] VITALS: BP 121/76; PULSE 80; RESP 17; TEMP 37.1; O2SAT 97
--- NOTE | 2020-09-15 15:38 | W.PM.PROGNOT ---
Date of Service Date of service: 09/15/20 Time of Service: 15:38 Assessment and Plan Assessment and plan (1) Pain in rectum: Status: Acute Assessment and plan: 24yo female POD# 4 s/p EUA, oversewing of anal verge arterial bleeder, presents with rectal pain and spasm. Will attempt to relieve patient's pain and help her defecate, or she may require manual disimpaction in the OR. --IV fluids --Sitz baths, as many as possible --stool softeners/laxatives--dulcolax, miralax --topical dibucaine to anus --Relistor --anusol ID --dulcolax ID --muscle relaxant--methocarbamol --anitspasmodic--diazepam --pain control with Toradol, Tylenol, hydromorphone, will decrease dose --AMBULATE (2) Urinary retention: Status: Acute Assessment and plan: Associated urinary retention due to anal pain and spasm --maintain blankenship catheter until anal pain decreases --oxybutinin Subjective Subjective Patient reports: still having pain, flatus, no bowel movement, nausea and afebrile; denies blood in stool, vomiting and shortness of breath Interval history since last seen: Sarahi is feeling a little better but still has a swell of pain when the Dilaudid starts to wear off. She is not sure if any of the other remedies are helping. However, she has refused to get out of bed to do Sitz baths, though she admits that they helped her at home. I emphasized repeatedly that she needs to do them, and that I will be weaning down the pain medication. She needs to make an effort to get herself better, and avoid the operating room, which may disturb the results from her last surgery. Exam Const General: cooperative, healthy appearing and no acute distress Nutritional Appearance: obese Orientation: alert, awake and oriented x3 Resp Effort & Inspection: normal respiratory effort Auscultation: clear to auscultation bilaterally GI Inspection: obesity Palpation: soft, not firm, no guarding, not rigid, nontender and No ascites Rectal Exam - female: hemorrhoids and tenderness Other: Visual inspection only: small non-thrombosed or ischemic hemorrhoids; pt would not tolerate AREN Neuro General: patient alert, patient awake, patient oriented x3 and no focal motor deficits Cognition: normal cognition Speech: speech normal Psych Appearance: grossly normal Mental Status: mental status grossly normal Speech and Movement: speech and movement normal Mood: congruent mood Affect: normal affect Attitude: cooperative Thought Process: normal Thought Content: normal Insight: insight good Judgment: judgment good Objective Last Vital Signs Temp 98.8 F 09/15/20 15:16 Pulse 80 09/15/20 15:16 Resp 17 09/15/20 15:16 BP 121/76 09/15/20 15:16 Pulse Ox 97 09/15/20 15:16 Laboratory Results - last 24 hr 09/15/20 09/15/20 09/15/20 06:40 06:40 10:10 WBC 8.88 RBC 3.24 L Hgb 7.9 L Hct 26.3 L MCV 81.2 MCH 24.4 L MCHC 30.0 L RDW 16.2 H Plt Count 303 D MPV 10.0 Immature Gran % 0.8 Neutrophils % 54.3 Lymphocytes % 32.4 Monocytes % 6.8 Eosinophils % 5.1 Basophils % 0.6 Nucleated RBC % 0 Absolute Neutrophils 4.83 Absolute Lymphocytes 2.88 Absolute Monocytes 0.60 Absolute Eosinophils 0.45 Absolute Basophils 0.05 Sodium 140 Potassium 3.5 Chloride 109 H Carbon Dioxide 26.9 Anion Gap 4.1 BUN 7 Creatinine 0.6 Estimated GFR/1.73 m2 >= 60.00 Glucose 95 Calcium 8.4 L Magnesium 1.9 Urine HCG, Qual Negative
[2020-09-15] MEDS: Lactated Ringers 1,000 ML 100 ML IV (15:45)
--- NOTE | 2020-09-15 15:54 | INITIAL_ITS ---
- If Service Date Differs Date of service: 09/15/20 Time of Service: 15:54 Care Management Initial Assess REASON FOR HOSPITALIZATION:: Rectal pain, urinary retention. PAST MEDICAL HISTORY/PAST SURGICAL HISTORY:: Medical History: ADHD, Anxiety, Depression, Hx of hemorrhoids, and. Insomnia. Surgical History: H/O esophagogastroduodenoscopy (~07/2020), History of colonoscopy (~07/2020), and S/P hemorrhoidectomy (~08/07/20). PREVIOUS FUNCTIONAL STATUS/SOCIAL/FAMILY SUPPORTS:: Sinai is a 24 year old female who lives in [place] with her significant other, Terrance. The couple moved to the area from [place] in March 2020. Sinai recently graduated from [employer] with a degree in [email or web address]. She names her parents and Terrance as her supports. Sinai is independent at baseline. CURRENT FUNCTIONAL STATUS:: Sinai is laying in bed on her left side when CM comes to meet with her. Her significant other, Terrance, is present in the room. Sinai is pleasant and easily engages in conversation. She talks about coming to [place] on vacation with her family and falling in love with the area. CM will continue to follow. ADVANCE DIRECTIVES:: None on file; CM offers form and patient declines. Has patient been provided with info about the portal/API?: Yes Did the patient sign up for the portal?: No CODE STATUS:: Full Code INSURANCE COVERAGE / FINANCIAL ISSUES:: [employer]. CURRENT HOME/COMMUNITY SERVICES/EQUIPMENT:: No home/community services or equi pment. PRIMARY CARE PHYSICIAN:: No local but a referral was made to [facility] at the beginning of July. Sinai is interested in establishing care with [facility], so CM provides her with contact information. POTENTIAL DISCHARGE NEEDS:: Follow up appointments with PCP and surgeon and discharge plan of care. PATIENT/FAMILY EDUCATION NEEDS:: Discharge instructions regarding medications and activity level, and follow up plan of care, including Ask Me Three and self management. ANTICIPATED BARRIERS TO DISCHARGE:: No anticipated barriers. TRANSPORTATION:: Via private vehicle by significant other. PLAN:: Anticipate Sinai will be discharged home with no services when medically cleared by provider. She will follow up with her PCP, surgeon, and discharge plan of care as instructed. She will be driven home by her significant other via private vehicle when ready. CM will continue to follow. Readmission - Within the Past 30 Days Yes or No: Y - Date of First Admission Date of 1st Admission: 09/11/20 - Date of this Admission Date of Admission: 09/14/20 This admission was: Through ED - Office Visit Since 1st Admission Have you seen your PCP in the office since discharge?: No Had an appointment Been Scheduled?: No Describe barriers for scheduling or getting an appointment: No local PCP. - Speicalist Appointments Have you seen any other specialist since your 1st Admission?: No - I. Interview patient and/or Family Difficulty reaching your doctor or getting an office appt?: No Have you had trouble purchasing/ or taking medication?: No How do you take your medications and set up your pills?: Administers own medication. Have you had trouble with getting meals at home?: No Describe your typical meals since you have been home: Sinai is vegetarian. She cooks and also gets prepared meals through a meal service. Did you feel ready for discharge when you left the last time: Yes Did you call your physician beore you came to the ED?: No Did your physician tell you to come in?: No How do you think you became sick enough to come back?: I could not manage the pain at home. - Ask the Care Team Members: What do you think caused the patient to be readmitted: Patient presents with rectal pain and spasms. She additionally has been unable to have a bowel movement in several days. - ED visits How many ED visits in the past 12 months: 7 - Assessment for Readmission Summary of readmission circumstances, based upon interviews: Patient is status post suturing of rectal arterial bleeding. Since returning home, she has experienced significant pain with spasms and an inability to have a bowel movement, in addition to urinary retention.
[2020-09-15] MEDS: HYDROmorphone 2 MG/ML VIAL 0.5 MG IVP ×2 (18:16→22:40)
[2020-09-15 19:51] VITALS: BP 114/75; PULSE 84; RESP 18; TEMP 36.4; O2SAT 95
[2020-09-15] MEDS: Lactulose 20 GM/30 ML CUP PO (20:17)
[2020-09-16] VITALS (7 sets, daily range): BP systolic 114–140; BP diastolic 70–89; PULSE 69–89; RESP 18–20; TEMP 36.3–36.8; O2SAT 96–99
[2020-09-16] MEDS: Methocarbamol 500 MG TAB PO ×6 (01:50→21:21)
[2020-09-16] MEDS: Lactated Ringers 1,000 ML 100 ML IV ×3 (01:51→23:49)
[2020-09-16] MEDS: diazePAM 10 MG/2 ML SYR 5 MG IVP (02:19)
[2020-09-16] MEDS: diphenhydrAMINE Elixir 25 MG/10 ML CUP PO (02:20)
[2020-09-16] MEDS: HYDROmorphone 2 MG/ML VIAL 0.5 MG IVP ×4 (03:06→23:45)
[2020-09-16] MEDS: Ketorolac 15 MG/ML VIAL IVP ×4 (04:14→21:20)
[2020-09-16 06:55] LABS: Abs Immature Grans 0.07 10^3/uL (0.0-0.06); Absolute Basophil Count 0.04 10^3/uL (0.0-0.2); Absolute Eosinophil Count 0.25 10^3/uL (0.0-0.7); Absolute Lymphocyte Count 2.32 10^3/uL (1.2-3.4); Absolute Monocyte Count 0.76 10^3/uL (0.1-0.8); Absolute Neutrophil Count 6.78 10^3/uL (1.2-6.7); Basophils % 0.4; Eosinophils % 2.4; HCT 26.5 % (36.0-46.0); Immature Grans % 0.7; Lymphocytes % 22.7; MCH 24.1 pg (27.0-33.0); MCHC 30.2 % (32.0-36.0); MCV 79.8 fL (80-95); MPV 9.9 fL (8.0-11.0); Monocytes % 7.4; Neutrophils % 66.4; Nucleated RBC 0 %; Platelet Count 311 10^3/uL (130-400); RBC 3.32 10^6/uL (3.93-5.22); RDW 16.8 % (11.7-14.6); RDW-SD 46.5 fL; WBC 10.22 10^3/uL (4.4-10.8)
[2020-09-16 07:28] LABS: Anion Gap 10.1 mmol/L (3-11); BUN 4 mg/dL (7-18); CO2 24.9 mmol/L (21.0-32.0); CREATININE 0.7 mg/dL (0.55-1.02); Calcium 8.7 mg/dL (8.5-10.1); Chloride 109 mmol/L (98-107); Glucose 99 mg/dL (74-106); Magnesium 1.8 mg/dL (1.8-2.4); Potassium 3.8 mmol/L (3.5-5.1); Sodium 144 mmol/L (136-145)
--- NOTE | 2020-09-16 08:24 | W.PM.PROGNOT ---
Date of Service Date of service: 09/16/20 Time of Service: 08:24 Assessment and Plan Assessment and plan (1) Pain in rectum: Status: Acute Assessment and plan: 24yo female POD# 5 s/p EUA, oversewing of anal verge arterial bleeder, presents with rectal pain and spasm. Multiple BMs early this morning. --IV fluids --Sitz baths, as many as possible --stool softeners/laxatives--dulcolax, miralax --topical dibucaine to anus --Relistor --anusol CA --dulcolax CA --muscle relaxant--methocarbamol --anitspasmodic--diazepam --pain control with Toradol, Tylenol, hydromorphone, will decrease dose --AMBULATE (2) Urinary retention: Status: Acute Assessment and plan: Associated urinary retention due to anal pain and spasm --maintain blankenship catheter until anal pain decreases --oxybutinin Subjective Subjective Interval history since last seen: Patient reports she continues to have rectal pain. When using the Sitz baths, she states the position of sitting on the toilet is painful. She reports that she has a BM yesterday. Exam Const General: cooperative, healthy appearing and comfortable Orientation: alert and oriented x3 Resp Effort & Inspection: normal respiratory effort, no audible wheezes and no cough Objective Last Vital Signs Temp 36.7 C 09/16/20 07:28 Pulse 89 09/16/20 07:28 Resp 20 09/16/20 07:28 BP 140/85 09/16/20 07:28 Pulse Ox 98 09/16/20 07:28 Laboratory Results - last 24 hr 09/15/20 09/16/20 09/16/20 10:10 06:19 06:19 WBC 10.22 RBC 3.32 L Hgb 8.0 L Hct 26.5 L MCV 79.8 L MCH 24.1 L MCHC 30.2 L RDW 16.8 H Plt Count 311 MPV 9.9 Immature Gran % 0.7 Neutrophils % 66.4 Lymphocytes % 22.7 Monocytes % 7.4 Eosinophils % 2.4 Basophils % 0.4 Nucleated RBC % 0 Absolute Neutrophils 6.78 H Absolute Lymphocytes 2.32 Absolute Monocytes 0.76 Absolute Eosinophils 0.25 Absolute Basophils 0.04 Sodium 144 Potassium 3.8 Chloride 109 H Carbon Dioxide 24.9 Anion Gap 10.1 BUN 4 L Creatinine 0.7 Estimated GFR/1.73 m2 >= 60.00 Glucose 99 Calcium 8.7 Magnesium 1.8 Urine HCG, Qual Negative
[2020-09-16] MEDS: Normal Saline Flush 10 ML SYR IVP ×6 (09:02→23:45)
[2020-09-16] MEDS: FLUoxetine 20 MG CAP 60 MG PO (10:21)
[2020-09-16] MEDS: Acetaminophen 325 MG TAB 650 MG PO ×3 (10:21→21:21)
[2020-09-16] MEDS: Polyethylene Glycol 3350 17 GM PACKET PO ×3 (10:21→20:35)
[2020-09-16] MEDS: diazePAM 5 MG TAB PO ×4 (10:21→20:34)
[2020-09-16] MEDS: buPROPion-XL 150 MG TABCR 300 MG PO (10:21)
[2020-09-16] MEDS: Docusate Sodium 100 MG CAP PO ×2 (10:22→20:34)
[2020-09-16] MEDS: Oxybutynin-CR 5 MG TABCR PO (10:22)
[2020-09-16] MEDS: Lactulose 20 GM/30 ML CUP PO (10:23)
[2020-09-16] MEDS: Hydrocortisone 25 MG SUPP PR ×3 (12:24→20:35)
--- NOTE | 2020-09-16 12:58 | CMPROGNOTE_ITS ---
Care Management Progress Note S/O: Sinai continues to be closely monitored for pain management with use of Toradol, Tylenol, and hydromorphone; these will start to be decreased per MD. She was able to have multiple BMs per MD, voiding trial anticipated for today. CM continues to follow. A: 24 year old admitted to [facility] 09/14/20 for rectal pain, urinary retention. P: Sinai will be discharged home with no services when medically cleared by provider. She will follow up with her PCP, surgeon, and discharge plan of care as instructed. She will be driven home by her significant other via private vehicle when ready. CM will continue to follow.
[2020-09-17] MEDS: LORazepam 2 MG/ML VIAL 0.5 MG IVP (01:53)
[2020-09-17] MEDS: Normal Saline Flush 10 ML SYR IVP ×3 (01:54→09:51)
[2020-09-17] MEDS: Methocarbamol 500 MG TAB PO ×3 (01:54→09:47)
[2020-09-17 03:27] VITALS: BP 113/68; PULSE 72; RESP 20; TEMP 36.6; O2SAT 97
[2020-09-17] MEDS: Acetaminophen 325 MG TAB 650 MG PO ×2 (04:20→09:47)
[2020-09-17] MEDS: Ketorolac 15 MG/ML VIAL IVP ×2 (04:20→09:46)
[2020-09-17 06:54] LABS: Abs Immature Grans 0.06 10^3/uL (0.0-0.06); Absolute Basophil Count 0.03 10^3/uL (0.0-0.2); Absolute Eosinophil Count 0.48 10^3/uL (0.0-0.7); Absolute Lymphocyte Count 3.08 10^3/uL (1.2-3.4); Absolute Monocyte Count 0.78 10^3/uL (0.1-0.8); Basophils % 0.3; Eosinophils % 5.1; HCT 26.1 % (36.0-46.0); HGB 7.9 g/dL (11.2-15.7); Immature Grans % 0.6; MCH 24.2 pg (27.0-33.0); MCHC 30.3 % (32.0-36.0); MCV 80.1 fL (80-95); MPV 10.7 fL (8.0-11.0); Monocytes % 8.4; Neutrophils % 52.6; Nucleated RBC 0 %; RBC 3.26 10^6/uL (3.93-5.22); RDW 17.2 % (11.7-14.6); RDW-SD 48.1 fL; WBC 9.33 10^3/uL (4.4-10.8)
[2020-09-17 07:02] LABS: Anion Gap 10.9 mmol/L (3-11); BUN 3 mg/dL (7-18); CO2 24.1 mmol/L (21.0-32.0); CREATININE 0.7 mg/dL (0.55-1.02); Calcium 8.7 mg/dL (8.5-10.1); Chloride 108 mmol/L (98-107); Glucose 91 mg/dL (74-106); Magnesium 1.8 mg/dL (1.8-2.4); Potassium 3.6 mmol/L (3.5-5.1); Sodium 143 mmol/L (136-145)
[2020-09-17 07:18] VITALS: BP 122/79; PULSE 79; RESP 18; TEMP 36.6; O2SAT 100
[2020-09-17 07:33] LABS: Diff Comment Diff Reviewed; Platelet Count 265 10^3/uL (130-400)
[2020-09-17 07:34] LABS: Anisocytosis 1+; Hypochromasia 1+; Polychromasia Present
[2020-09-17] MEDS: diazePAM 5 MG TAB PO (07:35)
[2020-09-17] MEDS: FLUoxetine 20 MG CAP 60 MG PO (07:35)
[2020-09-17] MEDS: Oxybutynin-CR 5 MG TABCR PO (07:35)
[2020-09-17] MEDS: buPROPion-XL 150 MG TABCR 300 MG PO (07:36)
[2020-09-17] MEDS: Docusate Sodium 100 MG CAP PO (07:37)
[2020-09-17] MEDS: Polyethylene Glycol 3350 17 GM PACKET PO (07:38)
[2020-09-17] MEDS: HYDROmorphone 2 MG/ML VIAL 0.5 MG IVP (08:00)
--- NOTE | 2020-09-17 08:34 | W.PM.DS.N ---
Date of service: 09/17/20 Time of Service: 08:34 DS: Diagnosis Discharge Diagnosis (1) Pain in rectum: Status: Acute (2) Urinary retention: Status: Acute Discharge Plan Disposition Patient Disposition: HOME Condition: Serious Discharge Details Reason For Visit: Rectal Pain, Urinary Retention Admit Date/Time: 09/14/20 07:00 Admit Provider: Nelson Sharma Attending Provider: Nelson Sharma Primary Care Provider: ,Local Home Meds and New Rx's Prescriptions: No Action eszopiclone [Lunesta] 1 mg tablet 1 mg PO QHS PRNRF: 0 diazepam [Valium] 5 mg tablet 5 mg PO Q6H PRN PRN (Reason: muscle spasm) Qty: 20 RF: 0 dibucaine 1 % ointment 1 applic topical QID Qty: 30 RF: 12 bisacodyl [Dulcolax (bisacodyl)] 5 mg tablet,delayed release (DR/EC) 5 mg PO DAILY Qty: 60 RF: 6 oxycodone 5 mg capsule 5 mg PO Q4H PRN (Reason: pain (scale score 7-10)) Qty: 14 RF: 0 propranolol 10 mg Tablet 10 mg PO TID PRN (Reason: Anxiety) RF: 0 bupropion HCl [Wellbutrin XL] 150 mg tablet extended release 24 hr 300 mg PO QAM RF: 0 dexmethylphenidate [Focalin XR] 20 mg capsule,ER biphasic 50-50 10 mg PO DAILY RF: 0 fluoxetine [Prozac] 40 mg capsule 60 mg PO DAILY RF: 0 levomefolate calcium 7.5 mg tablet 15 mg PO DAILY RF: 0 dibucaine [Nupercainal] 1 % Ointment 1 applic DC QID Qty: 56 RF: 0 Discharge Instructions Additional Instructions: Home Care Instructions after Rectal Surgery Pain control: Ibuprofen 600mg 6hrs (take w/ food. Do not take on an empty stomach) and Tylenol 1000mg by mouth (ibuprofen 400-600mg) every 8 hours. Do not take if you have ulcers or sensitivity to aspirin. Do not take Tylenol if you have hepatitis or liver failure. . How to prevent constipation: The first bowel movement after surgery will be painful. Do not let yourself get constipated. Stay on a stool softener for the first two weeks after surgery. It is recommended that you use a fiber supplement (Metamucil, Citrucel) daily (1 tablespoon in 8 oz of water). If you do not have a bowel movement daily, use Milk of Magnesia or Miralax. You may have bleeding or drainage after rectal surgery; especially when you move your bowels. Use a sanitary napkin to collect the discharge. If you are passing large clots or having to change the pad more than every 4 hours, call the clinic or go to the ER. You may experience spasms in the rectal muscles. This is normal after surgery and last for about two weeks. They can become more intense with bowel movements. The best remedy is to soak in a bathtub of plain warm water- no Epsom salts, essential oil or soap. It takes about 10 minutes further the spasm to stop. You may want to do this after BM as well. It is ok to shower. Avoid soap on the surgical area. Use a pillow to sit on. Follow a mild bland diet. Avoid alcohol, spicy food, citrus, and tomatoes. Avoid strenuous activity (running, jogging, and power walking, swimming, weight lifting) for two weeks. No lifting over 20 pounds for 2 weeks. Activity:: see above Equipment/Supplies:: No Equipment Needed Diet:: As Tolerated Discharge Orders Discharge Orders: Discharge Order (Routine); Ordered 09/17/20 Ordered By: Priyanka Douglas DS: Summary Time Spent with Patient providing and/or coordinating discharge services: Less than 30 minutes Status at Discharge Functional status at discharge: independent ambulation Overall status at discharge: patient is progressing back to baseline Mental Status: mental status grossly normal Speech and Movement: speech and movement normal Mood: congruent mood Affect: normal affect Exam Psych Mental Status: mental status grossly normal Speech and Movement: speech and movement normal Mood: congruent mood Affect: normal affect DS: Data Vitals/I&O Vitals and I&O: Vital Signs Temperature 36.6 C 09/17/20 07:18 Temperature Source Temporal Artery Scan 09/17/20 07:18 Pulse 79 09/17/20 07:18 Pulse Rhythm Regular 09/16/20 19:55 Pulse 86 09/14/20 08:20 Respiratory Rate 18 09/17/20 07:18 Respiratory Effort Non-Labored 09/16/20 19:55 Respiratory Depth Normal 09/16/20 19:55 Respiratory Pattern Normal 09/16/20 19:55 Blood Pressure 122/79 09/17/20 07:18 Blood Pressure Mean 59 09/14/20 08:00 Blood Pressure Position Supine 09/14/20 00:42 Pulse Oximetry 100 09/17/20 07:18 Oxygen Delivery Method Room Air 09/17/20 07:18 Oxygen Flow Rate 0 09/17/20 07:18 Pain Level 9 09/17/20 08:00 Comment 09/16/20 23:53 Intake & Output 09/16/20 09/16/20 09/17/20 11:59 23:59 11:59 Intake Total 1000 / 3200 2200 / 3200 Output Total 500 / 500 300 / 300 Balance 500 / 2700 2200 / 2700 -300 / -300 Intake: IV 1000 / 3000 2000 / 3000 Oral 200 / 200 Output: Urine 500 / 500 300 / 300 Other: Urine Color Pale Yellow Yellow Urine Appearance Clear Clear Urine Odor Normal Comment Discontinued by Rolanda Andres RN. voided 300ml Stool Size Large Stool Characteristics Soft Liquid Formed Bloody Voiding Methods Toilet Data Completed and Pending Labs on day of discharge: Labs from last 24 hours 09/17/20 09/17/20 06:40 06:40 WBC 9.33 RBC 3.26 L Hgb 7.9 L Hct 26.1 L MCV 80.1 MCH 24.2 L MCHC 30.3 L RDW 17.2 H Plt Count 265 MPV 10.7 Immature Gran % 0.6 Neutrophils % 52.6 Lymphocytes % 33.0 Monocytes % 8.4 Eosinophils % 5.1 Basophils % 0.3 Nucleated RBC % 0 Absolute Neutrophils 4.90 Absolute Lymphocytes 3.08 Absolute Monocytes 0.78 Absolute Eosinophils 0.48 Absolute Basophils 0.03 RBC Morphology See Below Polychromasia Present Hypochromasia 1+ Anisocytosis 1+ Sodium 143 Potassium 3.6 Chloride 108 H Carbon Dioxide 24.1 Anion Gap 10.9 BUN 3 L Creatinine 0.7 Estimated GFR/1.73 m2 >= 60.00 Glucose 91 Calcium 8.7 Magnesium 1.8 PFSH Medical History ADHD Anxiety Depression Hx of hemorrhoids Insomnia Surgical History H/O esophagogastroduodenoscopy (~07/2020) History of colonoscopy (~07/2020) S/P hemorrhoidectomy (~08/07/20) Social History Smoking/Tobacco Use Status: Former Tobacco Use Smoking risk assessment performed?: Yes Alcohol Intake: never Drug use: Daily Substance use type: marijuana Current gender identity: female Do you feel safe at home: Yes Do you feel safe in your relationship?: Yes
--- NOTE | 2020-09-17 08:44 | W.PM.PROGNOT ---
Date of Service Date of service: 09/17/20 Time of Service: 08:44 Assessment and Plan Assessment and plan (1) Bladder spasm: Status: Acute (2) Urinary retention: Status: Acute (3) Rectal/anal hemorrhage: Status: Acute (4) Pain in rectum: Status: Acute (5) Anemia: Status: Chronic Assessment and plan: -Hemoglobin has been stable for the last 48 hours -Patient is able to urinate on her own -Bowels are moving and no excessive bleeding -Patient is experiencing normal postop pain. We discussed expectations after surgery. She will pain for the next 2 weeks. The sling to do is to soak in a tub of warm water. Take her Dulcolax daily. Take MiraLAX at bedtime and she does not have a bowel movement during the day. Oxycodone and Valium for pain. As well as dibucaine topical gel. But really her best option for pain control is to soak in plain warm water. No dietary restrictions. Patient will follow in 2 weeks time in the office for follow-up visit and repeat. Please see discharge orders Patient discharged in stable satisfactory condition and expressed understanding of all postop instructions. She still has prescriptions from her previous discharge from same-day surgery. If she requires refills she office. Subjective Subjective Interval history since last seen: Pt is doing well. no headaches. No CP or SOB. no productive cough. no dysuria. no leg pain or swelling. She is able to void on her own. She is having bowel movements. She is rebounded to the other side and they are mostly liquid currently. She does have some little blood when she wipes. She is not passing any stool. She has no fever or chills. She has no nausea vomiting. She is tolerating regular diet. She still says she is having a lot of pain and burning in the rectal area. She is up walking around. Exam Resp Effort & Inspection: normal respiratory effort and able to speak in complete sentences Auscultation: clear to auscultation bilaterally Cardio Rate: regular rate Rhythm: regular rhythm GI Inspection: obesity Palpation: soft Other: non tender no bleeding Objective Last Vital Signs Temp 36.6 C 09/17/20 07:18 Pulse 79 09/17/20 07:18 Resp 18 09/17/20 07:18 BP 122/79 09/17/20 07:18 Pulse Ox 100 09/17/20 07:18 Laboratory Results - last 24 hr 09/17/20 09/17/20 06:40 06:40 WBC 9.33 RBC 3.26 L Hgb 7.9 L Hct 26.1 L MCV 80.1 MCH 24.2 L MCHC 30.3 L RDW 17.2 H Plt Count 265 MPV 10.7 Immature Gran % 0.6 Neutrophils % 52.6 Lymphocytes % 33.0 Monocytes % 8.4 Eosinophils % 5.1 Basophils % 0.3 Nucleated RBC % 0 Absolute Neutrophils 4.90 Absolute Lymphocytes 3.08 Absolute Monocytes 0.78 Absolute Eosinophils 0.48 Absolute Basophils 0.03 RBC Morphology See Below Polychromasia Present Hypochromasia 1+ Anisocytosis 1+ Sodium 143 Potassium 3.6 Chloride 108 H Carbon Dioxide 24.1 Anion Gap 10.9 BUN 3 L Creatinine 0.7 Estimated GFR/1.73 m2 >= 60.00 Glucose 91 Calcium 8.7 Magnesium 1.8
--- NOTE | 2020-09-17 16:39 | PDOC.CMDIS ---
LACE Index Scoring Tool - Questions: Length of Stay (in days): 3 Acuity (Admit via E.D.?): Yes E.D. Visits: 6 - Answers: Total Score: 10 Risk of Readmission: High Risk Care Management Discharge Reason for Hospitalization: Rectal pain, urinary retention. Discharge Plan: [facility] will be discharged home with no services when medically cleared by provider. She will follow up with her PCP, surgeon, and discharge plan of care as instructed. She will be driven home by her significant other via private vehicle when ready. Patient/Family Education Needs: Review discharge instructions, discuss Ask Me Three.
== END 2020-09-17 10:44 | disposition home or self-care (01) | DRG 394 ==
LOC: ER 07:14 → MS 20:23
PROVIDERS: Admitting Provider Surgery; Emergency Provider Student in an Organized Health Care Education/Training Program; Visit Provider Surgery
DX: K62.89 Other specified diseases of anus and rectum (principal); Z68.42 Body mass index [BMI] 45.0-49.9, adult; R33.9 Retention of urine, unspecified; F90.9 Attention-deficit hyperactivity disorder, unspecified type; F41.9 Anxiety disorder, unspecified; F32.9 Major depressive disorder, single episode, unspecified; G47.00 Insomnia, unspecified; Z87.891 Personal history of nicotine dependence; E66.9 Obesity, unspecified; Z20.822 Contact with and (suspected) exposure to COVID-19
CPT/HCPCS: 36415; 51702; 80048; 87635; 96361; 96365; 96372; 96375; 96376; 99285; 74177; 81003; 81025; 83735; 85025; 99284; J0131; J1885; J2060; J3360; J3490; Q9967

== ENCOUNTER 2020-09-19 22:07 | Emergency (ER) | payer OTHER, SELFPAY ==
[2020-09-19 22:11] VITALS: BP 119/76; PULSE 121; RESP 20; TEMP 36.2; O2SAT 99
--- NOTE | 2020-09-19 22:23 | ED.GENADUL_ITS ---
Discharge Plan Disposition Patient Disposition: HOME Condition: Stable Discharge Details Clinical Impression: Anemia, Pain in rectum, Abdominal pain, Anxiety, External hemorrhoid Primary Care Provider: Nieves,Local ED Provider: Isatu Trujillo Home Meds and New Rx's Prescriptions: Continued eszopiclone [Lunesta] 1 mg tablet 1 mg PO QHS PRNRF: 0 diazepam [Valium] 5 mg tablet 5 mg PO Q6H PRN PRN (Reason: muscle spasm) Qty: 20 RF: 0 dibucaine 1 % ointment 1 applic topical QID Qty: 30 RF: 12 bisacodyl [Dulcolax (bisacodyl)] 5 mg tablet,delayed release (DR/EC) 5 mg PO DAILY Qty: 60 RF: 6 oxycodone 5 mg capsule 5 mg PO Q4H PRN (Reason: pain (scale score 7-10)) Qty: 14 RF: 0 propranolol 10 mg Tablet 10 mg PO TID PRN (Reason: Anxiety) RF: 0 bupropion HCl [Wellbutrin XL] 150 mg tablet extended release 24 hr 300 mg PO QAM RF: 0 dexmethylphenidate [Focalin XR] 20 mg capsule,ER biphasic 50-50 10 mg PO DAILY RF: 0 fluoxetine [Prozac] 40 mg capsule 60 mg PO DAILY RF: 0 levomefolate calcium 7.5 mg tablet 15 mg PO DAILY RF: 0 dibucaine [Nupercainal] 1 % Ointment 1 applic MO QID Qty: 56 RF: 0 Discharge Instructions Instructions: Oxycodone, Rapid Release (By mouth), Abdominal Pain (ED), Anxiety (ED) Additional Instructions: Your labs and imaging are reassuring. Your anemia is beginning to correct. You do have small external hemorrhoids but I do not see any acute issue with these. Please encourage water intake. Please continue with stool softeners. Allow yourself to have bowel movements. Please use the peribottle when using the restroom to help with discomfort. You may also continue with your topical options to help with your rectal pain. Regard to your anxiety, please begin your medications once again and take these as previously prescribed. Please have family help you with remembering medication and take these as prescribed. In regard to pain, please continue with Tylenol, you may take this up to 4 times a day. If this is unsuccessful, you may augment this with oxycodone. However, please only take half a tab at a time as I am concerned about potential addictive qualities. I would like for you to follow-up with primary care soon as possible, please call clinic tomorrow to schedule appointment. Hoping that you will be able to be seen either tomorrow or Wednesday for reevaluation. If you develop fever/chills, increased pain, inability stay hydrated or other new/worsening symptoms please seek care urgently once again. Medical Decision Making Patient is a pleasant 24-year-old female presenting today with chief complaint of abdominal pain. She is accompanied by her mother. Patient has had complicated history recently and has been admitted a few times for complications associated with rectal bleeding. Patient's been brought to the OR time to for the same. Did require 2 minutes PRBCs. Patient was last discharged on 09/17/2020. States that at that time she was feeling well. Was discharged home on oxycodone and Valium. Is run out of both of these. States that several hours ago she began having much more severe diffuse abdominal discomfort. Reports that the abdominal pain is not like what she is experienced historically. States that she has had a scant amount of rectal bleeding since her surgery. However, denies any large amount of bleeding, lightheadedness, shortness of breath to have been accompanied with her significant anemia she was hospitalized for previously. She denies any chest pain or breath. No fevers. States that she has been nauseated but denies any vomiting. States that she has been having difficulty with bowel movements but did have a bowel movement this morning. Has been taking stool softeners and laxatives. No previous abd ominal surgeries. On exam, patient appears very anxious. She is crying. She is tachycardic but otherwise hemodynamically stable. She has fairly diffuse abdominal discomfort with voluntary guarding and no focal area found her discomfort. Patient not had continued rectal bleeding, held off on a rectal exam as I am concerned for precipitating further bleeding. Concerns at this time for potential postoperative surgical complication. Also considered constipation versus unrelated abdominal pathology. Plan to obtain repeat CT imaging. Will repeat labs and give antiemetic and analgesics. FINDINGS: Liver: Focal fat in the liver near the fissure for the ligamentum teres. Fatty liver with no mass lesions. Gallbladder and bile ducts: Distended gallbladder with no wall thickening. No calcified stones in the gallbladder. No significant biliary dilation or radiopaque stones in the biliary tree. Pancreas: No ductal dilation. No masses. Spleen: No splenomegaly or focal lesions. Adrenal glands: No mass. Kidneys and ureters: No hydronephrosis. No renal masses. Stomach and bowel: Normal CT appearance the colon and rectum. No wall thickening. No diverticular disease. Appendix: No evidence of appendicitis. Intraperitoneal space: No free air. No significant fluid collection. Vasculature: No abdominal aortic aneurysm. Lymph nodes: No significantly enlarged lymph nodes. Urinary bladder: Unremarkable as visualized. Reproductive: The IUD is located lower than expected in the lower uterine segment which is similar in positioning compared to prior. Correlation with the physical exam and ultra sound may be helpful. Bones/joints: No acute fracture. Soft tissues: No suspicious lesions. IMPRESSION: 1. No acute findings. 2. Incidental findings as described Labs reviewed. No leukocytosis. Hemoglobin 8.8, this is up from 7.9 on 09/17/2020. Potassium is slightly low at 3.4. No significant abnormalities on CMP. Lipase within normal limits. Reevaluated patient. She appears much more comfortable once he starts discussing her symptoms, she begins crying again. She is reporting severe rectal pain but reports her abdominal pain is improved. I did evaluate her rectum, patient will not tolerate a digital rectal exam. She has multiple nonthrombosed external hemorrhoids. These do appear slightly blanched with the same more consistent with medication usage rather than an acute pathology. I had a lengthy chat with patient and her mother regarding medication usage. I am concerned that some of her rebound pain is associated with the patient's history of anxiety, depression as well as her narcotic usage. Over the past month, she has used narcotics frequently and did run out of her oxycodone yesterday. Patient's been using 10 mg of Valium to help with her spasms tolerating this well. She also has not been taking for prescribed Wellbutrin, Lunesta, propranolol, fluoxetine. I am questioning if this may be contributing to her crying discomfort. Concern that patient may be was having some withdrawal symptoms. However, alternatively I am also very concerned that the patient becoming addicted to the medication did not want to continue her on the narcotics. Patient will be given Ativan to help with her discomfort and anxiety. We discussed inpatient vs. outpatient management at length. Initially, patient had felt like she should to have inpatient admission. However, I did speak with hospitalist and we discussed risks and benefits further. Patient would prefer to not be hospitalized for any length of time. Hospice advised that as this is likely associated with anxiety, depression and narcotic and benzo use, it would likely take much longer period of time to get this under control. I again evaluated the patient and discussed this at length with patient and her mother. They feel that discharged home would be appropriate. She will begin taking her scheduled medications once again. I will prescribe her a small amount of narcotics to be taken only 2.5 mg tablets. We will also stressed the use of nonnarcotics. Peribottle given to help with discomfort she experiences when using the restroom. Return precautions were given. She will use anxiety lytic techniques. Mom is present and will help regarding all of these recommendations. All other questions or concerns were addressed and she is agreement this plan HPI General Mode of arrival: ambulatory . Date/Time Provider Initiated Documentation: 09/19/20 22:09 . Limitations to Documentation: no limitations . Information obtained by: patient, family (Mother) and RN notes reviewed . History of Present Illness 24 year old F presents to the emergency department with the chief complaint of Diffuse abdominal pain, rectal pain, described as severe, with intensity rated at 10. Quality is described as aching, and is localized to the abdomen. Patient reports no radiation. Patient started experiencing this hour(s) and it has been constant. No relieving factors improve symptom(s), No exacerbating factors reported . Patient notes nausea/vomiting (Reports nausea, no vomiting); denies chest pain, cough, fever/chills, loss of appetite, rash and shortness of breath. Patient did receive the following treatments prior to arrival, none Related Data Home Medications Medication Instructions Recorded Confirmed propranolol 10 mg PO TID PRN 07/19/20 09/19/20 bupropion HCl 150 mg 24 hr tablet, 300 mg PO QAM tab 07/23/20 09/19/20 extended release dexmethylphenidate 20 mg 10 mg PO DAILY cap 07/23/20 09/19/20 capsule,extended release [id number] eszopiclone 1 mg tablet 1 mg PO QHS PRN 07/23/20 09/19/20 fluoxetine 40 mg capsule 60 mg PO DAILY cap 07/23/20 09/19/20 levomefolate calcium 7.5 mg tablet 15 mg PO DAILY tab 07/23/20 09/19/20 dibucaine [Nupercainal] 1 applic MO QID #56 g 09/07/20 09/19/20 bisacodyl [Dulcolax (bisacodyl)] 5 mg PO DAILY #60 tab 09/12/20 09/19/20 dibucaine 1 applic TOPICAL QID #30 g 09/12/20 09/19/20 oxycodone 5 mg PO Q4H PRN #14 cap 09/12/20 09/19/20 diazepam 5 mg tablet 5 mg PO Q6H PRN PRN #20 tab 09/13/20 09/19/20 Previous Rx's Medication Instructions Recorded dibucaine [Nupercainal] 1 applic MO QID #56 g 09/07/20 bisacodyl [Dulcolax (bisacodyl)] 5 mg PO DAILY #60 tab 09/12/20 dibucaine 1 applic TOPICAL QID #30 g 09/12/20 oxycodone 5 mg PO Q4H PRN #14 cap 09/12/20 diazepam 5 mg tablet 5 mg PO Q6H PRN PRN #20 tab 09/13/20 Allergies Allergy/AdvReac Type Severity Reaction Status Date / Time hazelnut Allergy Itching Verified 09/19/20 22:15 soy Allergy Itching Verified 09/19/20 22:15 General Stated Complaint: Abd Prob RUBENS: 3 Review of Systems Constitutional Constitutional: Reports as per HPI, Denies chills, Denies fatigue, Denies fever(s) and Denies headache(s) ENT Ears, Nose, Mouth, and Throat: Denies headache(s) Cardiovascular Cardiovascular: Reports as per HPI, Denies chest pain, Denies syncope, Denies lightheadedness and Denies dyspnea Respiratory Respiratory: Reports as per HPI, Denies cough and Denies dyspnea Gastrointestinal Gastrointestinal: Reports as per HPI Genitourinary Genitourinary: Reports system reviewed and no additional complaints, except as documented (Patient is been urinating well, no further symptoms of retention) Musculoskeletal Musculoskeletal: Reports as per HPI and Denies back pain Integumentary/Breasts Skin/Breast: Reports as per HPI and Denies rash Neurologic Neurologic: Reports as per HPI, Denies syncope and Denies headache(s) Endocrine Endocrine: Denies fatigue PFSH Medical History ADHD Anxiety Depression Hx of hemorrhoids Insomnia Surgical History H/O esophagogastroduodenoscopy (~07/2020) History of colonoscopy (~07/2020) S/P hemorrhoidectomy (~08/07/20) Social History Smoking/Tobacco Use Status: Former Tobacco Use Smoking risk assessment performed?: Yes Alcohol Intake: never Drug use: Daily Substance use type: marijuana Current gender identity: female Do you feel safe at home: Yes Do you feel safe in your relationship?: Yes Exam Const General: cooperative, uncomfortable, no acute distress, well developed and anxious Nutritional Appearance: well nourished and obese Orientation: alert and awake HENFL Head: normal to inspection Mouth: moist mucous membranes Resp Effort & Inspection: normal respiratory effort, able to speak in complete sentences and no respiratory distress Auscultation: clear to auscultation bilaterally, no rales, no rhonchi and no wheezes Cardio Rate: tachycardic Rhythm: regular rhythm Heart Sounds: S1 normal and S2 normal GI Inspection: normal to inspection, non-distended, no incisions and obesity Palpation: soft, no hepatosplenomegaly, guarding (Diffuse voluntary guarding), no hernias, no masses, no pulsatile masses, not rigid, tender (Diffuse, no focal area of pain) and No ascites Percussion: normal to percussion Auscultation: hypoactive bowel sounds Back/Spine/Pelvis Back: no CVA tenderness Skin General skin exam: no rashes or lesions noted Trauma: no lacerations or abrasions Neuro General: patient alert and patient awake Cognition: normal cognition Speech: speech normal Gait: normal gait Psych Appearance: grossly normal and well kempt Mental Status: mental status grossly normal Speech and Movement: speech and movement normal Course Vital Signs Vital signs: Vital Signs Temperature 36.2 C L 09/19/20 22:11 Pulse 121 H 09/19/20 22:11 Respiratory Rate 20 09/19/20 22:11 Blood Pressure 119/76 07/01/21 22:11 Pulse Oximetry 99 09/19/20 22:11 Temperature 36.2 C L 09/19/20 22:11 Pulse 121 H 09/19/20 22:11 Respiratory Rate 20 09/19/20 22:11 Respiratory Effort 09/19/20 22:14 Blood Pressure 119/76 09/19/20 22:11 Pulse Oximetry 99 09/19/20 22:11 Oxygen Delivery Method Room Air 09/19/20 22:11 Oxygen Flow Rate 0 09/19/20 22:11 Pain Level 10 09/19/20 22:11
[2020-09-19] MEDS: HYDROmorphone 2 MG/ML VIAL 1 MG IVP (22:37)
[2020-09-19] MEDS: Ondansetron 4 MG/2 ML VIAL IVP (22:37)
[2020-09-19] MEDS: Normal Saline 1,000 ML 1000 ML IV (22:37)
[2020-09-19 22:39] VITALS: PULSE 87; RESP 15; O2SAT 97
[2020-09-19 23:02] LABS: Abs Immature Grans 0.06 10^3/uL (0.0-0.06); Absolute Basophil Count 0.05 10^3/uL (0.0-0.2); Absolute Eosinophil Count 0.32 10^3/uL (0.0-0.7); Absolute Neutrophil Count 5.94 10^3/uL (1.2-6.7); Basophils % 0.5; Eosinophils % 3.3; HCT 29.4 % (36.0-46.0); HGB 8.8 g/dL (11.2-15.7); Immature Grans % 0.6; Lymphocytes % 26.1; MCH 24.2 pg (27.0-33.0); MCHC 29.9 % (32.0-36.0); MPV 10.3 fL (8.0-11.0); Monocytes % 7.3; Neutrophils % 62.2; Nucleated RBC 0 %; Platelet Count 349 10^3/uL (130-400); RBC 3.63 10^6/uL (3.93-5.22); RDW-SD 49.6 fL; WBC 9.57 10^3/uL (4.4-10.8)
--- NOTE | 2020-09-19 23:05 | DI.CT_ITS ---
Exam(s) CT ABDOMEN PELVIS W EXAM: CT ABDOMEN PELVIS W INDICATION: severe diffuse pain 1wk post op for rectal bleedin. COMPARISON: CT CT ABDOMEN PELVIS W from 09/14/2020 TECHNIQUE: FINDINGS: CT examination of the abdomen and pelvis was performed with a bolus infusion of 100 cc of Omnipaque 3 50. Images obtained through the lung bases are unremarkable. The liver is unremarkable in appearance except for question hepatic steatosis.. Gallbladder and bile ducts are CT normal. Pancreas appears normal. Spleen is unremarkable in appearance. Adrenals appear normal. The kidneys are unremarkable with no evidence of hydronephrosis, nephrolithiasis, or renal mass.. Ur inary bladder unremarkable. Abdominal aorta is of normal diameter and no major vascular abnormality is seen. No abdominal wall hernia. No abdominal or pelvic adenopathy. The uterus and ovaries are unremarkable except for location IUD which appears to approach or enter th e cervix. Please correlate clinically. Appendix is normal. No evidence of diverticulitis or bowel obstruction. IMPRESSION: Negative CT examination of the abdomen and pelvis. Possible low-lying IUD. Please correlate clinically. RADIATION DOSE DELIVERED: 1,461.45mGy.cm Total DLP 1,461.45mGy.cm Total DLP RADIATION OPTIMIZATION: All CT scans at this facility use at least one of these dose optimization te chniques: automated exposure control; mA and/or kV adjustment per patient size (includes targeted exa ms where dose is matched to clinical indication); or iterative reconstruction.
[2020-09-19] MEDS: Normal Saline Flush 10 ML SYR IVP (23:06)
[2020-09-19] MEDS: Omnipaque 350 MG/ML 100 ML BTL IJ (23:06)
[2020-09-19] MEDS: Normal Saline - Diluent 50 ML VIAL IV (23:06)
[2020-09-19 23:15] LABS: ALT 27 U/L (14-59); AST 22 U/L (15-37); Albumin 3.3 g/dL (3.4-5.0); Alkaline Phosphatase 50 U/L (46-116); Anion Gap 10.3 mmol/L (3-11); BUN 7 mg/dL (7-18); Bilirubin, Total 0.3 mg/dL (0.2-1.0); CO2 23.7 mmol/L (21.0-32.0); CREATININE 0.8 mg/dL (0.55-1.02); Calcium 8.4 mg/dL (8.5-10.1); Chloride 109 mmol/L (98-107); Glucose 100 mg/dL (74-106); Lipase 45 U/L (73-393); Magnesium 1.8 mg/dL (1.8-2.4); Potassium 3.4 mmol/L (3.5-5.1); Sodium 143 mmol/L (136-145); Total Protein 7.1 g/dL (6.4-8.2)
--- NOTE | 2020-09-19 23:31 | DI.VRAD_ITS ---
PROCEDURE INFORMATION: Exam: CT Abdomen And Pelvis With Contrast Exam date and time: 09/19/2020 22:31 Age: 24 years old Clinical indication: Other: Severe diffuse pain 1 wk post op for rectal bleeding; Prior surgery; Surgery date: 3-7 days post-operative; Surgery type: Surgery for rectal bleeding TECHNIQUE: Imaging protocol: Computed tomography of the abdomen and pelvis with contrast. Radiation optimization: All CT scans at this facility use at least one of these dose optimization techniques: automated exposure control; mA and/or kV adjustment per patient size (includes targeted exams where dose is matched to clinical indication); or iterative reconstruction. Contrast material: OMNIPAQUE 350; Contrast volume: 100 ml; Contrast route: INTRAVENOUS (IV); COMPARISON: CT ABDOMEN PELVIS W 09/14/2020 02:17 FINDINGS: Liver: Focal fat in the liver near the fissure for the ligamentum teres. Fatty liver with no mass lesions. Gallbladder and bile ducts: Distended gallbladder with no wall thickening. No calcified stones in the gallbladder. No significant biliary dilation or radiopaque stones in the biliary tree. Pancreas: No ductal dilation. No masses. Spleen: No splenomegaly or focal lesions. Adrenal glands: No mass. Kidneys and ureters: No hydronephrosis. No renal masses. Stomach and bowel: Normal CT appearance the colon and rectum. No wall thickening. No diverticular disease. Appendix: No evidence of appendicitis. Intraperitoneal space: No free air. No significant fluid collection. Vasculature: No abdominal aortic aneurysm. Lymph nodes: No significantly enlarged lymph nodes. Urinary bladder: Unremarkable as visualized. Reproductive: The IUD is located lower than expected in the lower uterine segment which is similar in positioning compared to prior. Correlation with the physical exam and ultrasound may be helpful. Bones/joints: No acute fracture. Soft tissues: No suspicious lesions. IMPRESSION: 1. No acute findings. 2. Incidental findings as described. Dictated and Authenticated by: Gwen Rain MD. Ordering:PINA Lunsford MD
[2020-09-19] MEDS: LORazepam 2 MG/ML VIAL 1 MG IVP (23:34)
--- NOTE | 2020-09-20 00:23 | NUR.NOTE ---
Addendum entered by Audelia Esqueda 09/20/20 09:57: Per [facility] she is not their patient. Referral faxed to Dr James who was carbon brusher assembler for telephone call on September 19. Audelia Esqueda Original Note: Referral faxed to [facility] for anxiety, post op pain follow up on 09/20/20.Nursing Note:
[2020-09-20 00:32] VITALS: BP 119/76; PULSE 87; RESP 15; TEMP 36.2; O2SAT 97
== END 2020-09-20 00:36 | disposition home or self-care (01) ==
PROVIDERS: Emergency Provider Physician Assistant
DX: K62.89 Other specified diseases of anus and rectum (principal); G89.18 Other acute postprocedural pain; D64.9 Anemia, unspecified; K64.4 Residual hemorrhoidal skin tags; R10.84 Generalized abdominal pain; F41.8 Other specified anxiety disorders
CPT/HCPCS: 36415; 80053; 83690; 96361; 96374; 96375; 99285; 74177; 81003; 83735; 85025; J2060; J2405; J3490

== ENCOUNTER → 2022-02-02 12:32 | Outpatient (CLI) | payer OTHER, SELFPAY ==
--- NOTE | 2022-02-02 12:30 | DI.RAD_ITS ---
Exam(s) XR CHEST 2V PA LATERAL EXAM: XR CHEST 2V PA LATERAL CLINICAL HISTORY: WHEEZING-R06.2, SHORTNESS OF BREATH-R06.02 TECHNIQUE: 2D digital imaging was performed. COMPARISON: No exams were available for comparison FINDINGS: HEART: Normal size. Aorta: PULMONARY VASCULATURE: Normal. LUNGS: Clear. PLEURAL SPACE: No pleural effusion or pneumothorax. BONE:Unremarkable for age. IMPRESSION: No acute abnormality. DATA REPOSITORY: RADIATION DOSE DELIVERED:
== END ==
PROVIDERS: PCP Nurse Practitioner Family; Visit Provider Nurse Practitioner Family
DX: R06.02 Shortness of breath (principal); R06.2 Wheezing
CPT/HCPCS: 71046

== ENCOUNTER → 2023-04-26 03:37 | Outpatient (CLI) | payer BC, SELFPAY ==
--- NOTE | 2023-04-26 08:37 | DI.RAD_ITS ---
Exam(s) XR ELBOW LT COMPLETE EXAM: XR ELBOW LT COMPLETE CLINICAL HISTORY: left elbow injury,S56.834o. TECHNIQUE: 2D digital imaging was performed. COMPARISON: No exams were available for comparison FINDINGS: 3 views No evidence of fracture or joint effusion. No swelling of the olecranon bursa. Radial head and neck appear unremarkable. Joint space normal. No intra-articular loose bodies. Epicondyles unremarkabl e. IMPRESSION: No significant radiograph findings in the left elbow. DATA REPOSITORY: RADIATION DOSE DELIVERED:
== END ==
PROVIDERS: PCP Nurse Practitioner Family; Visit Provider Physician Assistant
DX: S59.902A Unspecified injury of left elbow, initial encounter (principal); X58.XXXA Exposure to other specified factors, initial encounter
CPT/HCPCS: 73080

== ENCOUNTER 2024-03-08 10:22 | Outpatient (CLI) | payer BC, SELFPAY ==
[2024-03-08 09:30] LABS: ALT 67 U/L (14-59); AST 64 U/L (15-37); Albumin 3.5 g/dL (3.4-5.0); Alkaline Phosphatase 86 U/L (46-116); Anion Gap 8.2 mmol/L (3-11); BUN 10 mg/dL (7-18); Bilirubin, Total 0.34 mg/dL (0.2-1.0); CO2 24.8 mmol/L (21.0-32.0); CREATININE 0.9 mg/dL (0.55-1.02); Calcium 8.7 mg/dL (8.5-10.1); Calculated LDL 90 mg/dL (<100); Chloride 106 mmol/L (98-107); Cholesterol 185 mg/dL (<200); Estimated GFR 89.86 (mL/min/1.73m2); Glucose 117 mg/dL (74-106); HDL Cholesterol 72 mg/dL (40-60); Potassium 4.6 mmol/L (3.5-5.1); Sodium 139 mmol/L (136-145); Triglyceride 116 mg/dL (<150)
[2024-03-08 20:58] LABS: HIV-1/2 Ag & Ab Screen Negative (Negative)
[2024-03-08 21:02] LABS: Hepatitis C Ab w Rflx HCV PCR Negative (Negative)
[2024-03-13 17:45] LABS: Apolipoprotein B, Serum 81 mg/dL (48-124); Beta VLDL Cholesterol Not Detected mg/dL (<15); Beta VLDL Triglycerides Not Detected mg/dL (<15); Cholesterol, Total, CDC 183 mg/dL; Chylomicron Cholesterol Not Detected; Chylomicron Triglycerides Not Detected; HDL Cholesterol, CDC 56 mg/dL (>=50); Interpretation Normal; LDL Cholesterol 105 mg/dL; LDL Triglycerides 42 mg/dL (<=50); Lp(a) Cholesterol <5 mg/dL (<5); LpX Not detected; Triglycerides, CDC 130 mg/dL; VLDL Cholesterol 22 mg/dL (<30); VLDL Triglycerides 70 mg/dL (<120)
== END 2024-03-08 10:23 | disposition home or self-care (01) ==
PROVIDERS: PCP Nurse Practitioner Family; Visit Provider Nurse Practitioner Family
DX: Z13.220 Encounter for screening for lipoid disorders (principal); Z11.4 Encounter for screening for human immunodeficiency virus [HIV]; Z11.59 Encounter for screening for other viral diseases
CPT/HCPCS: 36415; 80053; 80061; 86803; 87389; 82172; 82664